=== PATIENT | female | born 1990 | race Caucasian/White ===

== ENCOUNTER 2016-11-28 15:29 | Outpatient (CLI) | payer OTHER ==
[2016-11-28 20:14] LABS: Anion Gap 16 mmol/L (10-20); BUN (Urea Nitrogen) 19 mg/dL (7.0-18.7); Calc. Creatinine Clearance 0 mL/min (70-130); Calcium 9.6 mg/dL (7.8-10.44); Carbon Dioxide 22 mmol/L (22-29); Chloride 104 mmol/L (98-107); Estimated GFR-MDRD 43
[2016-11-28 21:32] LABS: #Eosinphils 0.1 thou/uL (0.0-0.7); #Monocytes 0.3 thou/uL (0.11-0.59); #Neutrophils 2.4 thou/uL (1.40-6.50); %Basophils 0.6 % (0.0-1.0); %Eosinophils 1.8 % (0.0-10.0); %Monocytes 8.3 % (0.0-10.0); Hematocrit 34.7 % (36.0-47.0); Mean Platelet Volume 10.9 fL (7.4-10.4); Microcytosis SLIGHT = 6-15 cells (100X) (0-5/hpf); Polychromasia SLIGHT = 2-3 cells (100X) (0-2/hpf); Red Blood Cell (RBC) Count 4.03 mill/uL (4.20-5.40); White Blood Cell (WBC) Count 3.8 thou/uL (4.8-10.8)
== END 2016-11-28 15:30 | disposition home or self-care (01) ==
LOC: BURLAB 15:29 → HPCALD 15:30
PROVIDERS: ATTEND Family Medicine
DX: N17.9 Acute kidney failure, unspecified (principal); D61.818 Other pancytopenia
CPT/HCPCS: 80048; 85025

== ENCOUNTER 2016-12-02 18:08 | Emergency (ER) | payer OTHER ==
--- NOTE | 2016-12-02 19:20 | PICIS ---
[facility] EMERGENCY RECORD TRIAGE (18:16 LGIB) TRIAGE NOTES: rash since Thursday. saw PCP and given permethrin cream that she used. (18:16 LGIB) PATIENT: NAME: Kaycee Giraldo, AGE: 26, GENDER: female, : Sat 1990, TIME OF GREET: ThuDec 02, 2016 18:09, PREFERRED LANGUAGE: Kittitian, ETHNICITY: Not or , ECODE BILLING MAP: [facility], SSN: [id number], Zip Code: [address], KG WEIGHT: 108.86, , , PERSON ID: [id number], PAYMENT: X Medicaid, PCP: DO GLASGOW KRISTEL. (18:16 LGIB) PHONE: . (18:17) COMPLAINT: rash. (18:16 LGIB) ADMISSION: URGENCY: 4 Non Urgent, ADMISSION SOURCE: Home, TRANSPORT: CAR, BED: TRIAGE. (18:16 LGIB) SIRS SCORING: Heart Rate 110-139 (2), Temp range 96.8-101.1 (0), respiratory rate 12-24 (0), Mental Status altered: no (0), Total SIRS Score 2. (18:19 LGIB) LMP: LMP: Unknown. (18:19 LGIB) PROVIDERS: TRIAGE NURSE: Bethany Henry RN. (18:16 LGIB) PREVIOUS VISIT ALLERGIES: No Known Drug Allergies. (18:16 LGIB) No Known Drug Allergies. (18:18 LGIB) KNOWN ALLERGIES No Known Drug Allergies CURRENT MEDICATIONS (18:17 LGIB) Levemir Flexpen: INSULIN PEN (ML) : Strength - 100 unit/mL (3 mL) : SUBCUTANEOUS Patient Dose: 45 units Subcutaneous 2 times a day. Singulair: TABLET : Strength - 10 mg : ORAL Patient Dose: 10 mg Oral once a day (at bedtime). Ventolin: AEROSOL (GRAM) : Strength - 90 mcg : INHALATION Patient Dose: 1 puff(s) INHALATION every 4 hours prn. VITAL SIGNS (18:18 LGIB) VITAL SIGNS: BP: 136/91, Pulse: 111, Resp: 18 (Non-Labored), Temp: 97.8 (Oral), O2 sat: 98 on Room Air, Time: 12/02/2016 18:18. NURSING ASSESSMENT: SKIN (18:25 LGIB) CONSTITUTIONAL: Complex assessment performed, Patient arrives ambulatory, Gait steady, History obtained from patient, Patient appears comfortable, Patient cooperative, Patient alert, Oriented to person, place and time, Skin warm, Skin dry, Skin normal in color, Mucous membranes pink, Mucous membranes moist, Patient is well-groomed, Patient complains of RASH. PAIN: ITCHING, Patient rates pain as 0 out of 10. SKIN: Inspection findings include rash, red, flat, itchy, to GENERALIZED OVER BODY. &a-1R&a+25V*p+0X*r5798D*c202B*c15G*c2P*p-0X&a-25V&a+1R Name: Kaycee Giraldo : 1990 F26 MedRec: [id number] AcctNum: [id number] Prepared: Catrachito Dec 02, 2016 19:55 by Interface Page 1 of 5 pMD [facility] EMERGENCY RECORD NURSING PROCEDURE: DISCHARGE NOTE (18:58 LGIB) DISCHARGE: Patient discharged to home, ambulating without assistance, family driving, accompanied by parent, Summary of Care printed/ provided, Patient requested and was provided an electronic copy of Discharge Instructions, Discharge instructions given to patient, Discharge instructions given to mother, Simple or moderate discharge teaching performed, Prescriptions given and instructions on side effects given, Above person(s) verbalized understanding of discharge instructions and follow-up care, Patient treated and evaluated by physician. BELONGINGS: Belongings and valuables with patient at time of discharge include:, Belongings remain with patient, Valuables remain with patient. HPI RASH (18:31 DHAM) CHIEF COMPLAINT: Patient presents for evaluation of pruritis, Patient presents for evaluation of rash. HISTORIAN: History provided by patient, pt was in the hospital for "about a week" due to a dental abscess with facial cellulitis. She was sent home on antibiotics and took the last dose last week. She started with a generalized pruritic rash 5 days ago. she was seen by her pcp and given some cream for scabies per her sister. Pt is not very helpful with the history. no fevers, no nausea/vomiting/. LOCATION: Symptoms are generalized. QUALITY: Rash described as itchy, Rash described as papular, Rash described as raised, Rash described as red. TIME COURSE: Gradual onset of symptoms, 5, days priror to arrival, Symptoms are worsening. ASSOCIATED WITH: No associated chills, No associated extremity swelling, No associated fever, No associated oral lesions, No associated pain, No associated shortness of breath, Associated with scaling, No associated upper respiratory infection, antibiotic use last week. EXACERBATED BY: Patient's condition exacerbated by nothing. RELIEVED BY: Patient's condition relieved by benadryl. ROS (18:36 DHAM) CONSTITUTIONAL: Historian denies chills, denies fever, denies night sweats. EYES: Historian denies eye pain, denies eye redness, denies eye discharge. ENT: Historian denies rhinorrhea, denies sore throat. CARDIOVASCULAR: Historian denies chest pain. RESPIRATORY: Historian denies cough, denies shortness of breath, denies sputum. GI: Historian denies abdominal pain, denies diarrhea, denies nausea, denies vomiting. MUSCULOSKELETAL: Historian denies arthralgias, denies back pain, denies injury, denies joint redness, denies joint stiffness, denies &a-1R&a+25V*p+0X*y6468R*c202B*c15G*c2P*p-0X&a-25V&a+1R Name: Kaycee Giraldo : 1990 F26 MedRec: [id number] AcctNum: [id number] Prepared: Catrachito Dec 02, 2016 19:55 by Interface Page 2 of 5 pMD [facility] EMERGENCY RECORD joint swelling. SKIN: Historian reports rash. NEUROLOGIC: Historian denies headache. ENDOCRINE: Historian reports polyuria, blood sugar usually "over 400". ALLERGIC/IMMUNOLOGIC: recent oral infection. PSYCHIATRIC: special needs. PAST MEDICAL HISTORY (18:18 LGIB) MEDICAL HISTORY: Past medical history includes gastrointestinal disease, gastroesophageal reflux disease, Past medical history includes history of diabetes, Type II, Past medical history includes history of obesity, Past medical history includes pulmonary disease, asthma. FEMALE SURGICAL HISTORY: Patient has no surgical history. PSYCHIATRIC HISTORY: MILD MR. SOCIAL HISTORY: Social History includes lives with mom, Patient denies alcohol use, Patient denies drug use, Patient has no smoking history. FAMILY HISTORY: Family history is not significant. PHYSICAL EXAM (18:37 DHAM) CONSTITUTIONAL: Vital signs reviewed, Patient afebrile, Pulse, tachycardic, Blood pressure, hypertensive, Respiratory rate normal, Patient appears non toxic, Patient appears pain free, Patient alert and oriented to person, place and time. HEAD: Head exam included findings of head atraumatic, normocephalic. EYES: Eye exam included findings of eyelids normal to inspection, Pupils equally round and reactive to light, Extraocular muscles intact, Conjunctiva normal, Sclera normal, Eye exam included findings of anterior chamber clear. ENT: Ear exam normal, Nose exam normal, Pharynx exam normal, Uvula exam normal, Tonsil exam normal, Mouth exam normal, recent tooth removal. NECK: Neck exam included findings of normal range of motion, Trachea midline, no meningeal signs, no cervical adenopathy. RESPIRATORY CHEST: Respiratory exam included findings of no respiratory distress, Breath sounds clear, No wheezing, No rales, No rhonchi. CARDIOVASCULAR: Cardiovascular exam included findings of heart rate regular rate and rhythm, Heart sounds normal. ABDOMEN FEMALE: Abdominal exam included findings of abdomen nontender, Bowel sounds normal. UPPER EXTREMITY: Upper extremity exam included findings of inspection normal, Range of motion normal, Motor strength normal, Sensation intact, Brachial pulse normal, see skin below. LOWER EXTREMITY: Lower extremity exam included findings of &a-1R&a+25V*p+0X*y4676R*c202B*c15G*c2P*p-0X&a-25V&a+1R Name: Kaycee Giraldo : 1990 F26 MedRec: [id number] AcctNum: [id number] Prepared: Catrachito Dec 02, 2016 19:55 by Interface Page 3 of 5 pMD [facility] EMERGENCY RECORD inspection normal, Range of motion normal, Motor strength normal, Sensation intact, no edema, no calf tenderness, see skin. NEURO: Dharmesh coma scale 15, Neuro exam findings include patient oriented to person, place and time, Speech, raspy speech which her baseline from prior visit, Gait normal, Memory normal, Cranial nerves intact, no focal motor deficits, no focal sensory deficits. SKIN: Skin exam included findings of skin warm, dry, Rash present, confluent patches of papular erythematous/pink rash with some scaling. raised patches from .5x.5cm up to [id number] on the left medial thigh. LYMPHATIC: Lymphatic exam normal. PSYCHIATRIC: Psychiatric exam included findings of patient oriented to person place and time, Affect, flat, Judgment poor, Insight poor, Remote memory poor, Recent memory poor, Concentration poor. EVENTS TRANSFER: Triage to Emergency Triage. (ThuDec 02, 2016 18:16 LGIB) Emergency Triage to Emergency Room -03. (18:17 LGIB) Removed from Emergency Emergency Room -03. (19:01 LGIB) O2SAT INTERPRETATION (18:30 DHAM) O2SAT: Single pulse oximetry, Oxygen saturation 98%, on room air, Oxygen saturation interpretation: Normal, No intervention required. DOCTOR NOTES (18:43 DHAM) TEXT: I think this is a cutaneous drug reaction. I would usually give steroids in this situation but with her glucose always over 400, by her report, I think expectant mgmt with antihistamines is indicated. she has no idea what antibiotics that she was on. Pharmacy is closed. Mother and sister will call the pharmacy tomorrow to find out and call us so we can place in the system. see dci. PROBLEM LIST No recorded problems DIAGNOSIS (18:46 DHAM) FINAL: PRIMARY: cutaneous drug reaction. DISPOSITION PATIENT: Disposition Type: Discharge, Disposition: *Discharge Home. (18:46 DHAM) Patient left the department. (19:01 LGIB) INSTRUCTION (18:48 DHAM) DISCHARGE: DRUG REACTION ALLERGIC. FOLLOWUP: DO GLASGOW KRISTEL, Family Practice, [address], &a-1R&a+25V*p+0X*a8204O*c202B*c15G*c2P*p-0X&a-25V&a+1R Name: Kaycee Giraldo : 1990 F26 MedRec: [id number] AcctNum: [id number] Prepared: ThuDec 02, 2016 19:55 by Interface Page 4 of 5 pMD [facility] EMERGENCY RECORD [facility] [id number], [id number]. SPECIAL: Mother and sister will call the pharmacy tomorrow to find out what antibiotic she was on and call us so we can place in the system. ZYRTEC 10 MG ONE TABLET ONCE EVERY 24 HOURS FOR RASH AND ITCHING. RETURN FOR FEVER, SHORTNESS OF BREATH OR ANY OTHER CONCERNS. PRESCRIPTION No recorded prescriptions IMAGING (19:00 LGIB) *DISCHARGE INSTRUCTIONS RECEIPT: Image captured from scanner. *SUPPLY CHARGE SHEET: Image captured from scanner. ADMIN (19:51 [facility]) DIGITAL SIGNATURE: MD Sung Darren. Osborne: [facility]=MD Sung Darren LGIB=COREY Henry, Bethany &a-1R&a+25V*p+0X*d7863R*c202B*c15G*c2P*p-0X&a-25V&a+1R Name: Kaycee Giraldo : 1990 F26 MedRec: [id number] AcctNum: [id number] Prepared: Catrachito Dec 02, 2016 19:55 by Interface Page 5 of 5 pMD MTDD
--- NOTE | 2016-12-02 19:25 | ERRECORD ---
[facility] EMERGENCY RECORD HPI RASH (18:31 DHAM) CHIEF COMPLAINT: Patient presents for evaluation of pruritis, Patient presents for evaluation of rash. HISTORIAN: History provided by patient, pt was in the hospital for "about a week" due to a dental abscess with facial cellulitis. She was sent home on antibiotics and took the last dose last week. She started with a generalized pruritic rash 5 days ago. she was seen by her pcp and given some cream for scabies per her sister. Pt is not very helpful with the history. no fevers, no nausea/vomiting/. LOCATION: Symptoms are generalized. QUALITY: Rash described as itchy, Rash described as papular, Rash described as raised, Rash described as red. TIME COURSE: Gradual onset of symptoms, 5, days priror to arrival, Symptoms are worsening. ASSOCIATED WITH: No associated chills, No associated extremity swelling, No associated fever, No associated oral lesions, No associated pain, No associated shortness of breath, Associated with scaling, No associated upper respiratory infection, antibiotic use last week. EXACERBATED BY: Patient's condition exacerbated by nothing. RELIEVED BY: Patient's condition relieved by benadryl. ROS (18:36 DHAM) CONSTITUTIONAL: Historian denies chills, denies fever, denies night sweats. EYES: Historian denies eye pain, denies eye redness, denies eye discharge. ENT: Historian denies rhinorrhea, denies sore throat. CARDIOVASCULAR: Historian denies chest pain. RESPIRATORY: Historian denies cough, denies shortness of breath, denies sputum. GI: Historian denies abdominal pain, denies diarrhea, denies nausea, denies vomiting. MUSCULOSKELETAL: Historian denies arthralgias, denies back pain, denies injury, denies joint redness, denies joint stiffness, denies joint swelling. SKIN: Historian reports rash. NEUROLOGIC: Historian denies headache. ENDOCRINE: Historian reports polyuria, blood sugar usually "over 400". ALLERGIC/IMMUNOLOGIC: recent oral infection. PSYCHIATRIC: special needs. PAST MEDICAL HISTORY (18:18 LGIB) MEDICAL HISTORY: Past medical history includes gastrointestinal disease, gastroesophageal reflux disease, Past medical history includes history of diabetes, Type II, Past medical history includes history of obesity, Past medical history includes pulmonary disease, asthma. FEMALE SURGICAL HISTORY: Patient has no surgical &a-1R&a+25V*p+0X*a1409S*c202B*c15G*c2P*p-0X&a-25V&a+1R Name: Kaycee Giraldo : 1990 F26 MedRec: [id number] AcctNum: [id number] Prepared: Catrachito Dec 02, 2016 19:55 by Interface Page 1 of 3 pMD [facility] EMERGENCY RECORD history. PSYCHIATRIC HISTORY: MILD MR. SOCIAL HISTORY: Social History includes lives with mom, Patient denies alcohol use, Patient denies drug use, Patient has no smoking history. FAMILY HISTORY: Family history is not significant. KNOWN ALLERGIES No Known Drug Allergies CURRENT MEDICATIONS (18:17 LGIB) Levemir Flexpen: INSULIN PEN (ML) : Strength - 100 unit/mL (3 mL) : SUBCUTANEOUS Patient Dose: 45 units Subcutaneous 2 times a day. Singulair: TABLET : Strength - 10 mg : ORAL Patient Dose: 10 mg Oral once a day (at bedtime). Ventolin: AEROSOL (GRAM) : Strength - 90 mcg : INHALATION Patient Dose: 1 puff(s) INHALATION every 4 hours prn. VITAL SIGNS (18:18 LGIB) VITAL SIGNS: BP: 136/91, Pulse: 111, Resp: 18 (Non-Labored), Temp: 97.8 (Oral), O2 sat: 98 on Room Air, Time: 12/02/2016 18:18. PHYSICAL EXAM (18:37 DHAM) CONSTITUTIONAL: Vital signs reviewed, Patient afebrile, Pulse, tachycardic, Blood pressure, hypertensive, Respiratory rate normal, Patient appears non toxic, Patient appears pain free, Patient alert and oriented to person, place and time. HEAD: Head exam included findings of head atraumatic, normocephalic. EYES: Eye exam included findings of eyelids normal to inspection, Pupils equally round and reactive to light, Extraocular muscles intact, Conjunctiva normal, Sclera normal, Eye exam included findings of anterior chamber clear. ENT: Ear exam normal, Nose exam normal, Pharynx exam normal, Uvula exam normal, Tonsil exam normal, Mouth exam normal, recent tooth removal. NECK: Neck exam included findings of normal range of motion, Trachea midline, no meningeal signs, no cervical adenopathy. RESPIRATORY CHEST: Respiratory exam included findings of no respiratory distress, Breath sounds clear, No wheezing, No rales, No rhonchi. CARDIOVASCULAR: Cardiovascular exam included findings of heart rate regular rate and rhythm, Heart sounds normal. ABDOMEN FEMALE: Abdominal exam included findings of abdomen nontender, Bowel sounds normal. UPPER EXTREMITY: Upper extremity exam included findings of &a-1R&a+25V*p+0X*w1004V*c202B*c15G*c2P*p-0X&a-25V&a+1R Name: Kaycee Giraldo : 1990 F26 MedRec: [id number] AcctNum: [id number] Prepared: Catrachito Dec 02, 2016 19:55 by Interface Page 2 of 3 pMD [facility] EMERGENCY RECORD inspection normal, Range of motion normal, Motor strength normal, Sensation intact, Brachial pulse normal, see skin below. LOWER EXTREMITY: Lower extremity exam included findings of inspection normal, Range of motion normal, Motor strength normal, Sensation intact, no edema, no calf tenderness, see skin. NEURO: Wynot coma scale 15, Neuro exam findings include patient oriented to person, place and time, Speech, raspy speech which her baseline from prior visit, Gait normal, Memory normal, Cranial nerves intact, no focal motor deficits, no focal sensory deficits. SKIN: Skin exam included findings of skin warm, dry, Rash present, confluent patches of papular erythematous/pink rash with some scaling. raised patches from .5x.5cm up to [id number] on the left medial thigh. LYMPHATIC: Lymphatic exam normal. PSYCHIATRIC: Psychiatric exam included findings of patient oriented to person place and time, Affect, flat, Judgment poor, Insight poor, Remote memory poor, Recent memory poor, Concentration poor. DOCTOR NOTES (18:43 DHAM) TEXT: I think this is a cutaneous drug reaction. I would usually give steroids in this situation but with her glucose always over 400, by her report, I think expectant mgmt with antihistamines is indicated. she has no idea what antibiotics that she was on. Pharmacy is closed. Mother and sister will call the pharmacy tomorrow to find out and call us so we can place in the system. see dci. PROBLEM LIST No recorded problems DIAGNOSIS (18:46 DHAM) FINAL: PRIMARY: cutaneous drug reaction. PRESCRIPTION No recorded prescriptions DISPOSITION PATIENT: Disposition Type: Discharge, Disposition: *Discharge Home. (18:46 JOAQUIN) Patient left the department. (19:01 JESSICA) Osborne: JOAQUIN=MD Ana Lilia, Alexis LGIB=COREY Henry, Bethany &a-1R&a+25V*p+0X*z6391T*c202B*c15G*c2P*p-0X&a-25V&a+1R Name: Kaycee Giraldo : 1990 F26 MedRec: [id number] AcctNum: [id number] Prepared: Catrachito Dec 02, 2016 19:55 by Interface Page 3 of 3 pMD MTDD
== END 2016-12-02 19:00 | disposition home or self-care (01) ==
LOC: BURERS 18:08
DX: R21 Rash and other nonspecific skin eruption (principal); T49.95XA Adverse effect of unspecified topical agent, initial encounter; E11.9 Type 2 diabetes mellitus without complications; K21.9 Gastro-esophageal reflux disease without esophagitis; E66.9 Obesity, unspecified; J45.909 Unspecified asthma, uncomplicated
CPT/HCPCS: 99282

== ENCOUNTER 2017-01-05 20:41 | Emergency (ER) | payer OTHER ==
[2017-01-05] MEDS ORDERED: Insulin Regular 300 UNITS/3 ML VIAL ONE (21:08)
[2017-01-05 21:10] LABS: Bilirubin Negative (Negative); Blood, Urine Large (Negative); Glucose, Urine (Dipstick) 500 mg/dL (Negative); Ketone, Urine Negative (Negative); Nitrite Negative (Negative); Protein, Urine (Dipstick) 30 mg/dL (Neg-Trace); Urobilinogen 0.2 mg/dL (0.2-1.0)
[2017-01-05 21:16] LABS: RBC/HPF 0-3 HPF (0-3)
[2017-01-05 21:17] LABS: Bacteria/HPF Rare-Few HPF (None Seen); Hyaline Casts/LPF NONE SEEN LPF (0-3 Hyaline); Oval Fat Bodies/HPF None Seen HPF (None Seen); Renal Epithelial None Seen HPF (0-3); Sperm/HPF None Seen HPF (None Seen); Squamous Epithelial 0-3 HPF (0-3); Transitional Epithelial NONE SEEN HPF (0-3); Trichomonas/HPF None Seen HPF (None Seen); Yeast-All Forms None Seen HPF (None Seen)
[2017-01-05 21:44] LABS: ALT (SGPT) 30 U/L (0-55); AST (SGOT) 25 U/L (5-34); Alkaline Phosphatase 95 U/L (40-150); Anion Gap 16 mmol/L (10-20); BUN (Urea Nitrogen) 19 mg/dL (7.0-18.7); Bilirubin, Total 0.4 mg/dL (0.2-1.2); Calc. Creatinine Clearance 0 mL/min (70-130); Calcium 8.8 mg/dL (7.8-10.44); Carbon Dioxide 20 mmol/L (22-29); Chloride 104 mmol/L (98-107); Estimated GFR-MDRD 37; Globulin 2.5 g/dL (2.4-3.5)
[2017-01-05 22:07] LABS: Red Blood Cell (RBC) Count 3.63 mill/uL (4.20-5.40); White Blood Cell (WBC) Count 4.5 thou/uL (4.8-10.8)
[2017-01-05 22:08] LABS: #Eosinphils 0.1 thou/uL (0.0-0.7); #Monocytes 0.3 thou/uL (0.11-0.59); %Basophils 1.6 % (0.0-1.0); %Eosinophils 3.1 % (0.0-10.0); %Monocytes 6.7 % (0.0-10.0); Mean Platelet Volume 9.3 fL (7.4-10.4)
[2017-01-05 22:09] LABS: #Basophils 0.1 thou/uL (0.0-0.2); Anisocytosis SLIGHT = 6-15 cells (100X) (0-5/hpf)
[2017-01-05] MEDS ORDERED: HYDROcodone/Acetaminophen 5/325 mg Tablet ONE (22:35)
[2017-01-05] MEDS ORDERED: Amoxicillin/Potassium Clav 875 MG TAB ONE (23:29)
--- NOTE | 2017-01-06 06:58 | RAD ---
PORTABLE CHEST 01/05/2017 An AP portable film at 2114 hours is compared with a 11/15/2016 study. The heart is normal in size, and the lungs are clear. No infiltrate or effusion was seen. There wa s no sign of pneumonia. The trachea is midline. The right hilum is more prominent than the left, b ut I believe it is due to the patient being turned slightly. IMPRESSION: No definite acute findings. POS: HOME
--- NOTE | 2017-01-06 07:40 | CT ---
PRELIMINARY REPORT/[facility]/EMERGENCY AFTER HOURS PROCEDURE: EXAM: CT Neck Without Intravenous Contrast. CLINICAL HISTORY: 27 years old, female; Signs and symptoms and condition or disease; Dental caries; Other: Abscess willie th; Patient HX: Pt is complaining of dental pain and swelling on the upper teeth. No contrast due to low gfr. ; TECHNIQUE: Axial computed tomography images of the neck without intravenous contrast. Coronal and sagittal reformatted images were created and reviewed. COMPARISON: No relevant prior studies available. FINDINGS: Nasopharynx: Unremarkable. Oropharynx: Unremarkable. No significant tonsillar enlargement. Hypopharynx: Unremarkable. Larynx: Unremarkable. Normal epiglottis. Trachea: Unremarkable. Retropharyngeal space: Unremarkable. Submandibular/parotid glands: Unremarkable. Glands are normal in size. Thyroid: Unremarkable. No enlarged or calcified nodules. Bones/joints: No acute fracture. Soft tissues: Unremarkable. Vasculature: No acute findings. Lymph nodes: Enlarged 1 cm short axis right paratracheal lymph node. Mild enlarged bilateral jugular chain lymph nodes. Sinuses: Near-complete opacification of the maxillary sinuses bilaterally with fluid and mucosal thi ckening. Incompletely visualized opacification of anterior ethmoid air cells bilaterally. Findings a re compatible with sinusitis. Lung apices: Unremarkable as visualized. IMPRESSION: 1. Sinusitis. 2. Mild right paratracheal and bilateral jugular chain lymphadenopathy, nonspecific and indeterminat e. Thank you for allowing us to participate in the care of your patient. Dictated and Authenticated by: Jasson Narayan MD 01/05/2017 10:42 PM Central Time ([place] \T\ [place]) FINAL REPORT CT OF THE NECK SOFT TISSUES WITHOUT CONTRAST: DATE: 01/05/17. FINDINGS: Spiral CT of the neck was performed for evaluation of pain to the upper teeth and to rule out absces s. IV contrast was deferred because the patient's GFR was low. Axial slices were acquired, then co sera and sagittal reconstructions were done. The patient's ethmoid sinuses have considerable mucosal thickening and her maxillary sinuses are william ost completely opacified. The sphenoid sinus seems clear. Her mastoid air cells are not completely evaluated, but some may be opaque. Certainly, many are under aerated. Thus, sinusitis is present and is a potential cause for her dental pain. Regarding the soft tissues of the neck, there is no evidence of focal abscess. There are some small mildly enlarged lymph nodes in the deep cervical/jugular chains bilaterally, with those on the righ t being a bit larger than the left. The largest node on the right measured 2 cm in length. Some s mall nodes are seen in the right paratracheal region on the slices through the top of the mediastinu m. The lung apices were clear. There are quite a few calcifications in the patient's parotid gland on the right side that could be tiny calculi. I do not see any on the left. There is lucency around one of the left mandibular molars suggesting a small periapical abscess as a possibility. There is no swelling in the surrounding soft tissues. IMPRESSION: 1. Significant maxillary and ethmoid sinusitis that may be the etiology of dental pain in the upper teeth. 2. Cervical and right paratracheal adenopathy. The cervical adenopathy is most prominent on the ri ght side, though it is present bilaterally. 3. Numerous calcifications in the right parotid gland. 4. Lucency around one of the left mandibular molars that could be a small periapical abscess. Report in substantial agreement with preliminary reading by [facility]. POS: HOME
== END 2017-01-05 23:41 | disposition home or self-care (01) ==
LOC: BURERS 20:41
DX: E10.65 Type 1 diabetes mellitus with hyperglycemia (principal); J01.90 Acute sinusitis, unspecified; K21.9 Gastro-esophageal reflux disease without esophagitis; J45.909 Unspecified asthma, uncomplicated; Z79.4 Long term (current) use of insulin; Z79.899 Other long term (current) drug therapy
CPT/HCPCS: 36416; 70490; 71010; 80053; 81003; 81015; 85025; 96360; 96361; 96372; J1815

== ENCOUNTER 2017-04-18 14:02 | Emergency (ER) | payer OTHER ==
[2017-04-18] MEDS ORDERED: Sodium Chloride 0.9% 100 ML ONE (14:31)
[2017-04-18] MEDS ORDERED: cefTRIAXone\\ROCEPHIN 1 GM VIAL ONE (14:31)
[2017-04-18] MEDS ORDERED: Ibuprofen 200 MG TAB ONE (14:38)
[2017-04-18] MEDS ORDERED: Insulin Regular 300 UNITS/3 ML VIAL ONE (15:11)
[2017-04-18 15:17] LABS: Base Excess 1.4 mEq/L (-2 - +2)
[2017-04-18 15:18] LABS: Hemoglobin (Hb) 11.1 g/dL (11.7-15.5)
[2017-04-18 15:22] LABS: #Eosinphils 0.1 thou/uL (0.0-0.7); #Lymphocytes 0.9 thou/uL (1.20-3.40); #Monocytes 0.4 thou/uL (0.11-0.59); #Neutrophils 2.1 thou/uL (1.40-6.50); %Basophils 0.8 % (0.0-1.0); %Eosinophils 3.7 % (0.0-10.0); %Lymphocytes 25.6 % (21.0-51.0); %Monocytes 10.2 % (0.0-10.0); %Neutrophils 59.8 % (42.0-75.0); Hemoglobin 11.4 g/dL (12.0-16.0); Mean Corpuscular HGB CONC 31.5 g/dL (32.0-36.0); Mean Corpuscular Hemoglobin 26.8 pg (27.0-31.0); Mean Corpuscular Volume 85.1 fl (81.0-99.0); Mean Platelet Volume 9.3 fL (7.4-10.4); Platelet Count 56 thou/uL (130-400); Red Blood Cell (RBC) Count 4.24 mill/uL (4.20-5.40); White Blood Cell (WBC) Count 3.5 thou/uL (4.8-10.8)
[2017-04-18 15:23] LABS: ALT (SGPT) 51 U/L (8-55); AST (SGOT) 33 U/L (5-34); Albumin 3.6 g/dL (3.5-5.0); Alkaline Phosphatase 111 U/L (40-150); Anion Gap 16 mmol/L (10-20); BUN (Urea Nitrogen) 22 mg/dL (7.0-18.7); Bilirubin, Total 0.6 mg/dL (0.2-1.2); Calc. Creatinine Clearance 0 mL/min (70-130); Calcium 8.9 mg/dL (7.8-10.44); Carbon Dioxide 21 mmol/L (22-29); Chloride 100 mmol/L (98-107); Estimated GFR-MDRD 37; Globulin 2.3 g/dL (2.4-3.5); MDiff Complete? YES; Manual Diff?? NO; Potassium 4.8 mmol/L (3.5-5.1); Protein, Total 5.9 g/dL (6.0-8.3); Sodium 132 mmol/L (136-145)
[2017-04-18 15:29] LABS: Glucose 622 mg/dL (70-105)
== END 2017-04-18 16:13 | disposition home or self-care (01) ==
LOC: BURERS 14:02
DX: L02.411 Cutaneous abscess of right axilla (principal); E10.65 Type 1 diabetes mellitus with hyperglycemia; J45.909 Unspecified asthma, uncomplicated; K21.9 Gastro-esophageal reflux disease without esophagitis; E66.9 Obesity, unspecified; Z79.899 Other long term (current) drug therapy
CPT/HCPCS: 10060; 36415; 36416; 80053; 82805; 85025; 96361; 96374; J0696; J1815; J7050

== ENCOUNTER 2017-04-20 12:57 | Emergency (ER) | payer OTHER ==
[2017-04-20] MEDS ORDERED: Ondansetron HCl/PF 4 MG/2 ML Vial ONE (13:17)
--- NOTE | 2017-04-20 15:00 | RAD ---
PORTABLE CHEST: Date: 04-20-17 Provided Clinical History: Cough. FINDINGS: Comparison 01-05-17. Cardiac and mediastinal silhouette is upper normal limits. No focal consolidatio n, pleural fluid, or pneumothorax apparent. IMPRESSION: No evidence for an acute cardiopulmonary process. POS: [facility]
== END 2017-04-20 13:51 | disposition home or self-care (01) ==
LOC: BURERS 12:57
DX: K52.9 Noninfective gastroenteritis and colitis, unspecified (principal); K21.9 Gastro-esophageal reflux disease without esophagitis; E11.9 Type 2 diabetes mellitus without complications; E66.9 Obesity, unspecified; Z79.899 Other long term (current) drug therapy
CPT/HCPCS: 71010; 96374; J2405

== ENCOUNTER 2017-06-13 13:44 | Emergency (ER) | payer OTHER ==
[2017-06-13] MEDS ORDERED: Acetaminophen 500 MG TAB ONE (14:18)
== END 2017-06-13 14:15 | disposition home or self-care (01) ==
LOC: BURERS 13:44
DX: N76.0 Acute vaginitis (principal); B37.3 Candidiasis of vulva and vagina; J45.909 Unspecified asthma, uncomplicated
CPT/HCPCS: 99282

== ENCOUNTER 2017-08-19 16:22 | Emergency (ER) | payer OTHER ==
[2017-08-19] MEDS ORDERED: traMADol HCl 50 MG TAB ONE (16:43)
[2017-08-19] MEDS ORDERED: AMOXicillin 250 MG CAP ONE (16:43)
== END 2017-08-19 16:58 | disposition home or self-care (01) ==
LOC: BURERS 16:22
DX: J02.9 Acute pharyngitis, unspecified (principal); M79.1 Myalgia; J45.909 Unspecified asthma, uncomplicated
CPT/HCPCS: 99283

== ENCOUNTER 2017-09-15 16:02 | Emergency (ER) | payer OTHER ==
[2017-09-15 16:30] LABS: Bilirubin Negative (Negative); Blood, Urine Negative (Negative); Clarity Slightly Cloudy (Clear); Glucose, Urine (Dipstick) 500 mg/dL (Negative); Leukocyte Negative (Negative); Nitrite Negative (Negative); Protein, Urine (Dipstick) 100 mg/dL (Neg-Trace); Urobilinogen 0.2 mg/dL (0.2-1.0); pH, Urine 5.5 (5.0-9.0)
[2017-09-15 16:36] LABS: Bacteria/HPF 1+ HPF (None Seen); Crystals/HPF None Seen HPF (Negative); Hyaline Casts/LPF NONE SEEN LPF (0-3 Hyaline); Other Casts/LPF None Seen LPF (0-3 Hyaline); Oval Fat Bodies/HPF None Seen HPF (None Seen); RBC/HPF None Seen HPF (0-3); Renal Epithelial None Seen HPF (0-3); Sperm/HPF None Seen HPF (None Seen); Transitional Epithelial NONE SEEN HPF (0-3); Trichomonas/HPF None Seen HPF (None Seen); Yeast-All Forms None Seen HPF (None Seen)
[2017-09-15] MEDS ORDERED: Benzonatate 100 MG CAP ONE (16:42)
[2017-09-15] MEDS ORDERED: Ciprofloxacin 500 MG TAB ONE (16:42)
== END 2017-09-15 16:47 | disposition home or self-care (01) ==
LOC: BURERS 16:02
DX: N30.00 Acute cystitis without hematuria (principal); B37.3 Candidiasis of vulva and vagina; J06.9 Acute upper respiratory infection, unspecified; E11.9 Type 2 diabetes mellitus without complications; J45.909 Unspecified asthma, uncomplicated; Z79.4 Long term (current) use of insulin
CPT/HCPCS: 81003; 81015; 87086; 99283

== ENCOUNTER 2017-09-30 13:10 | Emergency (ER) | payer OTHER | END 2017-09-30 13:36 | disposition home or self-care (01) | LOC: BURERS 13:10 | DX: K08.89 Other specified disorders of teeth and supporting structures (principal); E11.9 Type 2 diabetes mellitus without complications; J45.909 Unspecified asthma, uncomplicated; Z79.4 Long term (current) use of insulin; Z79.899 Other long term (current) drug therapy | CPT/HCPCS: 99282 ==

== ENCOUNTER 2017-12-26 19:47 | Emergency (ER) | payer OTHER ==
[2017-12-26 20:16] LABS: Bilirubin Negative (Negative); Blood, Urine Trace (Negative); Clarity Slightly Cloudy (Clear); Glucose, Urine (Dipstick) 500 mg/dL (Negative); Leukocyte Negative (Negative); Nitrite Negative (Negative); Protein, Urine (Dipstick) Negative (Neg-Trace); Urobilinogen 0.2 mg/dL (0.2-1.0); pH, Urine 5.5 (5.0-9.0)
[2017-12-26 20:17] LABS: Specific Gravity, Urine 1.024 (1.002-1.036)
[2017-12-26 20:24] LABS: Bacteria/HPF Rare-Few HPF (None Seen); Crystals/HPF None Seen HPF (Negative); Hyaline Casts/LPF NONE SEEN LPF (0-3 Hyaline); Other Casts/LPF None Seen LPF (0-3 Hyaline); Oval Fat Bodies/HPF None Seen HPF (None Seen); RBC/HPF 0-3 HPF (0-3); Renal Epithelial None Seen HPF (0-3); Sperm/HPF None Seen HPF (None Seen); Squamous Epithelial 0-3 HPF (0-3); Transitional Epithelial NONE SEEN HPF (0-3); Trichomonas/HPF None Seen HPF (None Seen); WBC/HPF 0-3 HPF (0-3); Yeast-All Forms None Seen HPF (None Seen)
[2017-12-26] MEDS ORDERED: Ibuprofen 800 MG TAB ONE (20:29)
[2017-12-26] MEDS ORDERED: Benzonatate 100 MG CAP ONE (20:29)
[2017-12-26] MEDS ORDERED: Azithromycin 250 MG TAB ONE (20:29)
[2017-12-26] MEDS ORDERED: Cephalexin 500 MG CAP ONE (20:29)
--- NOTE | 2017-12-27 11:06 | RAD ---
CHEST 2 VIEWS: DATE: 12/26/17. COMPARISON: Comparison is made with a 01/05/17 study. FINDINGS: There is a patchy infiltrate in the superior portion of the left lower lobe overlying the left hilum. The findings are consistent with pneumonia. This should be followed to complete resolution. The r ight lung is clear. There are no effusions. Heart is normal in size. The trachea is midline. IMPRESSION: Left perihilar infiltrate consistent with pneumonia. Appears to be located in the superior portion o f the left lower lobe. POS: HOME
== END 2017-12-26 20:34 | disposition home or self-care (01) ==
LOC: BURERS 19:47
DX: J18.1 Lobar pneumonia, unspecified organism (principal); E11.9 Type 2 diabetes mellitus without complications; J45.909 Unspecified asthma, uncomplicated; Z79.4 Long term (current) use of insulin; Z79.899 Other long term (current) drug therapy
CPT/HCPCS: 71046; 81003; 81015

== ENCOUNTER 2017-12-30 12:26 | Outpatient (CLI) | payer OTHER ==
--- NOTE | 2017-12-30 20:14 | RAD ---
CHEST TWO VIEWS: 12/30/17 Comparison is made with the 12/26 study. The left perihilar infiltrate has improved slightly over the i nterval. A portion of it is somewhat long and tubular. This can sometimes be seen with mucus plugging in bronchi and/or atelectasis beyond it. The right lung remains clear. There are no large effusions. The heart size is normal. IMPRESSION: Slight improvement in the left perihilar infiltrate. A followup to complete resolution is needed. Code T POS: HOME
== END 2017-12-30 12:27 | disposition home or self-care (01) ==
LOC: BURRAD 12:26
PROVIDERS: ATTEND Family Medicine
DX: J18.9 Pneumonia, unspecified organism (principal); R91.8 Other nonspecific abnormal finding of lung field
CPT/HCPCS: 71046

== ENCOUNTER 2018-07-21 13:25 | Emergency (ER) | payer MEDICAID | END 2018-07-21 14:10 | disposition home or self-care (01) | LOC: BURERS 13:25 | DX: L02.31 Cutaneous abscess of buttock (principal); E11.9 Type 2 diabetes mellitus without complications; J45.909 Unspecified asthma, uncomplicated; Z79.4 Long term (current) use of insulin; Z79.899 Other long term (current) drug therapy | CPT/HCPCS: 99282 ==

== ENCOUNTER 2018-09-29 13:41 | Outpatient (CLI) | payer OTHER ==
[2018-09-29 17:58] LABS: Bilirubin Negative (Negative); Blood, Urine Large (Negative); Clarity CLEAR (Clear); Glucose, Urine (Dipstick) >=1000 mg/dL (Negative); Leukocyte Trace (Negative); Nitrite Negative (Negative); Protein, Urine (Dipstick) 30 mg/dL (Neg-Trace); Specific Gravity, Urine 1.029 (1.002-1.036); Urobilinogen 0.2 mg/dL (0.2-1.0)
[2018-09-29 18:07] LABS: Creatinine, Urine 62.04 mg/dL (47-110)
--- NOTE | 2018-09-29 22:40 | ULT ---
BILATERAL RENAL ULTRASOUND: 09/29/18 Ultrasonography of the urinary tract was performed in this patient who has known chronic kidney disea se. Comparison is made with a prior renal ultrasound dated 03/16/15. The right kidney measures 9.9 x 5.4 x 4.5 cm. No mass or hydronephrosis was seen within it. The jason x was unremarkable in appearance. Left kidney measures 10.3 x 4.2 x 4.0 cm. There is some mild hydronephrosis. There appears to be 2.7 cm cyst in this kidney, though it is not shown optimally. The tech questioned whether it might be act ually a dilated calyx, but most images appear to show it as a cyst. The cortex is somewhat thinned ar ound this kidney and slightly echogenic. The urinary bladder was empty. IMPRESSION: 1. Mild left hydronephrosis, much less than prior study. 2. Presumed cyst of the left kidney. POS: HOME
== END 2018-09-29 13:42 | disposition home or self-care (01) ==
LOC: BURULT 13:41
PROVIDERS: ATTEND Internal Medicine Nephrology
DX: I12.9 Hypertensive chronic kidney disease with stage 1 through stage 4 chronic kidney disease, or unspecified chronic kidney disease (principal); N18.3 Chronic kidney disease, stage 3 (moderate); N13.30 Unspecified hydronephrosis; N28.1 Cyst of kidney, acquired
CPT/HCPCS: 76770; 81003; 82570; 84156

== ENCOUNTER 2018-10-21 09:21 | Emergency (ER) | payer OTHER ==
[2018-10-21 10:47] LABS: Clarity Cloudy (Clear); Glucose, Urine (Dipstick) 500 mg/dL (Negative); Leukocyte Small (Negative); Nitrite Negative (Negative); Protein, Urine (Dipstick) 100 mg/dL (Neg-Trace); Specific Gravity, Urine 1.025 (1.005-1.030); pH, Urine 5.5 (5.0-9.0)
[2018-10-21 10:48] LABS: Bilirubin Negative (Negative); Blood, Urine Small (Negative)
[2018-10-21 10:51] LABS: Bacteria/HPF 1+ HPF (None Seen); Crystals/HPF 1+ AMORPH URATES HPF (Negative); RBC/HPF 0-3 HPF (0-3); Transitional Epithelial 0-3 HPF (0-3); WBC/HPF 21-50 HPF (0-3)
[2018-10-21 11:26] LABS: #Lymphocytes 0.8 thou/uL (1.20-3.40); #Monocytes 0.4 thou/uL (0.11-0.59); #Neutrophils 3.9 thou/uL (1.40-6.50); %Basophils 0.6 % (0.0-1.0); %Eosinophils 0.5 % (0.0-10.0); %Monocytes 8.5 % (0.0-10.0); %Neutrophils 74.5 % (42.0-75.0); Hemoglobin 9.6 g/dL (12.0-16.0); Mean Corpuscular HGB CONC 33.2 g/dL (32.0-36.0); Mean Corpuscular Hemoglobin 25.6 pg (27.0-31.0); Mean Corpuscular Volume 77.3 fL (78.0-98.0); Mean Platelet Volume 9.4 fL (7.4-10.4); Platelet Count 65 thou/uL (130-400); RBC Distribution Width 13.5 % (11.5-14.5); Red Blood Cell (RBC) Count 3.75 mill/uL (4.20-5.40); White Blood Cell (WBC) Count 5.2 thou/uL (4.8-10.8)
[2018-10-21 11:31] LABS: ALT (SGPT) 13 U/L (8-55); AST (SGOT) 10 U/L (5-34); Albumin 3.5 g/dL (3.5-5.0); Alkaline Phosphatase 72 U/L (40-150); Anion Gap 13 mmol/L (10-20); BUN (Urea Nitrogen) 19 mg/dL (7.0-18.7); Bilirubin, Total 0.8 mg/dL (0.2-1.2); Calc. Creatinine Clearance 0 mL/min (70-130); Calcium 9.4 mg/dL (7.8-10.44); Carbon Dioxide 23 mmol/L (22-29); Chloride 103 mmol/L (98-107); Estimated GFR-MDRD 39; Glucose 292 mg/dL (70-105); Potassium 4.2 mmol/L (3.5-5.1); Protein, Total 6.5 g/dL (6.0-8.3); Sodium 135 mmol/L (136-145)
--- NOTE | 2018-10-21 17:55 | RAD ---
CHEST TWO VIEWS: 10/21/18 Comparison is made with the 12/30/17 study. There is a patchy area that I do not see on the 12/26/17 study. An early infiltrate here is probable. T he lungs are otherwise clear and the heart is normal in size. No effusions are seen. IMPRESSION: Patchy right upper lobe infiltrate. Code T POS: HOME
== END 2018-10-21 12:00 | disposition home or self-care (01) ==
LOC: BURERS 09:21
DX: J18.1 Lobar pneumonia, unspecified organism (principal); N39.0 Urinary tract infection, site not specified; E11.9 Type 2 diabetes mellitus without complications; Z79.4 Long term (current) use of insulin; Z79.899 Other long term (current) drug therapy
CPT/HCPCS: 36416; 71046; 80053; 81003; 81015; 83605; 85025; 87040; 87086; 87804; 36415-59

== ENCOUNTER 2018-12-21 22:53 | Emergency (ER) | payer OTHER ==
[2018-12-21] MEDS ORDERED: Ketorolac Tromethamine 60 MG/2 ML VIAL ONE (23:09)
[2018-12-21] MEDS ORDERED: Cyclobenzaprine 10 MG TAB ONE (23:10)
[2018-12-21 23:25] LABS: Clarity Clear (Clear)
[2018-12-21 23:26] LABS: Bilirubin Negative (Negative); Blood, Urine Large (Negative); Glucose, Urine (Dipstick) Negative (Negative); Leukocyte Negative (Negative); Nitrite Negative (Negative); Protein, Urine (Dipstick) 100 mg/dL (Neg-Trace); Urobilinogen 0.2 mg/dL (0.2-1.0); pH, Urine 5.5 (5.0-9.0)
[2018-12-21 23:27] LABS: Bacteria/HPF Rare-Few HPF (None Seen); Squamous Epithelial 0-3 HPF (0-3); Yeast-All Forms 1+ HPF (None Seen)
[2018-12-21 23:28] LABS: Pregnancy Test - Urine (BHCG) Negative (Negative); Pregu Control Background? CLEAR/WHITE (CLR/WHITE); Pregu Control Bar Appear? YES (CONTROL BAR)
[2018-12-22] MEDS ORDERED: Diazepam 5 MG TAB ONE (00:04)
--- NOTE | 2018-12-22 08:09 | CT ---
PRELIMINARY REPORT/[facility]/EMERGENTY AFTER-HOURS PROCEDURE CT Abdomen and Pelvis Without Contrast EXAM DATE/TIME: 12/21/2018 11:40 PM CLINICAL HISTORY: 28 years old, female; Pain; Abdominal pain; Flank; Other: Bilat; Patient HX: Bilat flank pain TECHNIQUE: Axial computed tomography images of the abdomen and pelvis without contrast. All CT scans at this facility use at least one of these dose optimization techniques: automated expos ure control; mA and/or kV adjustment per patient size (includes targeted exams where dose is matched to clinical indication); or iterative reconstruction. COMPARISON: No relevant prior studies available. FINDINGS: Lower thorax: No acute findings. ABDOMEN: Liver: There is mild hepatomegaly. Gallbladder and bile ducts: Normal. No calcified stones. No ductal dilation. Pancreas: Normal. No ductal dilation. Spleen: There is significant splenomegaly. Adrenals: Normal. No mass. Kidneys and ureters: There may be congenital left ureteropelvic junction obstruction with moderate le ft hydronephrosis. No visible renal, ureteral or bladder calculi. Stomach and bowel: Normal. No obstruction. No mucosal thickening. Appendix: The appendix is unremarkable and seen best on axial image 55 of series 2. PELVIS: Bladder: Unremarkable as visualized. Reproductive: Unremarkable as visualized. ABDOMEN and PELVIS: Intraperitoneal space: Normal. No free air. No significant fluid collection. Bones/joints: No acute fracture. No dislocation. Soft tissues: Unremarkable. Vasculature: Normal. No abdominal aortic aneurysm. Lymph nodes: There is mesenteric and retroperitoneal lymphadenopathy in the abdomen and to a lesser e xtent in the pelvis with the largest lymph nodes in the retroperitoneum in the left periaortic region measuring 1.4 cm in short axis. Lymphoma cannot be excluded. IMPRESSION: 1. There is significant splenomegaly. 2. There may be congenital left ureteropelvic junction obstruction with moderate left hydronephrosis. No visible renal, ureteral or bladder calculi. 3. There is mesenteric and retroperitoneal lymphadenopathy in the abdomen and to a lesser extent in t he pelvis with the largest lymph nodes in the retroperitoneum in the left periaortic region measuring 1.4 cm in short axis. Lymphoma cannot be excluded. Thank you for allowing us to participate in the care of your patient. Dictated and Authenticated by: Rolo Moreland MD 12/22/2018 12:04 AM Central Time ([place] & [place]) FINAL REPORT CT ABDOMEN AND PELVIS WITHOUT CONTRAST: Date: 12-21-[address] of the abdomen and pelvis was performed and compared with an 07-07-15 study. FINDINGS: The lung bases are clear. The liver is somewhat generous in size but about the same as before. Spleno megaly is present as usual. It measures 15.2 cm in AP dimension on the axial images which is comparab le to the size previously. This did not change much over time. The adrenal glands and pancreas are unremarkable. No stones were seen in the gallbladder. The aorta i s normal in caliber. The bowel shows no distention, wall thickening, or inflammatory change around it. A normal appendix i s identified. There are scattered nodes throughout the mesentery and retroperitoneum. The largest are up to 1.4 cm in size and most are smaller. This was the case on the 2014 study and the appearance re ally is fairly similar. Some of the nodes may be marginally larger but overall there has been no dram atic change. Moderate hydronephrosis is present in the left kidney which has some cortical thinning. It is no wors e than the prior study. A 3.5 cm cyst is seen in the upper pole of this kidney. No renal or ureteral calcifications were seen. The right kidney appears normal. CT of the pelvis showed no pelvic masses, fluid collections, or other acute changes. IMPRESSION: 1. No evidence of acute urinary tract obstruction. Left hydronephrosis is comparable to prior studies . Some unevenness of the left renal cortex raises the question of prior infections. 2. Hepatosplenomegaly. The splenic size is really very comparable to the 2015 study. 3. Mesenteric and retroperitoneal adenopathy. This has been seen on prior scans. Changes over time ar e minimal with a few nodes being slightly larger, but still the overall picture is comparable. Given this long-standing appearance, the [facility] concern about possible lymphoma seems unlikely. Report in fundamental agreement with report by [facility] except as noted above. POS: HOME
== END 2018-12-22 00:10 | disposition home or self-care (01) ==
LOC: BURERS 22:53
DX: N39.0 Urinary tract infection, site not specified (principal); E11.9 Type 2 diabetes mellitus without complications; Z79.4 Long term (current) use of insulin; Z79.899 Other long term (current) drug therapy
CPT/HCPCS: 74176; 81003; 81015; 81025; 96372; J1885

== ENCOUNTER 2019-03-11 16:23 | Emergency (ER) | payer OTHER ==
[2019-03-11] MEDS ORDERED: Ketorolac Tromethamine 30 MG/ML VIAL ONE (16:52)
[2019-03-11] MEDS ORDERED: Cephalexin 500 MG CAP ONE (16:52)
== END 2019-03-11 16:46 | disposition home or self-care (01) ==
LOC: BURERS 16:23
DX: J02.9 Acute pharyngitis, unspecified (principal); E11.9 Type 2 diabetes mellitus without complications; D64.9 Anemia, unspecified
CPT/HCPCS: 96372; J1885

== ENCOUNTER 2019-07-01 16:11 | Emergency (ER) | payer OTHER ==
--- NOTE | 2019-07-01 16:46 | RAD ---
EXAM: Two views chest PROVIDED CLINICAL HISTORY: Fever COMPARISON: 10/21/2018. FINDINGS: Cardiac silhouette and pulmonary vasculature are within normal limits. Parenchymal opacity in the ri ght upper lobe has resolved. The lungs are clear on today's exam. The osseous structures have a normal appearance. IMPRESSION: No acute cardiopulmonary process.
[2019-07-01] MEDS ORDERED: Acetaminophen 500 MG TAB ONE (17:00)
== END 2019-07-01 17:18 | disposition home or self-care (01) ==
LOC: BURERS 16:11
DX: J18.1 Lobar pneumonia, unspecified organism (principal); L04.9 Acute lymphadenitis, unspecified; E10.9 Type 1 diabetes mellitus without complications
CPT/HCPCS: 36416; 71046; 87804

== ENCOUNTER 2019-07-07 00:15 | Emergency (ER) | payer OTHER ==
[2019-07-07] MEDS ORDERED: Dexamethasone 4 mg/ml Vial ONE (00:34)
[2019-07-07] MEDS ORDERED: Albuterol Sulfate 1.25 MG/3 ML NEB ONE (00:34)
[2019-07-07] MEDS ORDERED: Ketorolac Tromethamine 60 MG/2 ML VIAL ONE (00:34)
== END 2019-07-07 01:16 | disposition home or self-care (01) ==
LOC: BURERS 00:15
DX: J45.901 Unspecified asthma with (acute) exacerbation (principal); B34.9 Viral infection, unspecified; E11.9 Type 2 diabetes mellitus without complications
CPT/HCPCS: 36416; 96372; J1100; J1885

== ENCOUNTER 2019-09-08 11:36 | Emergency (ER) | payer OTHER ==
[2019-09-08] MEDS ORDERED: Promethazine 25 MG TAB ONE (11:52)
[2019-09-08] MEDS ORDERED: diphenhydrAMINE 25 MG CAP ONE (11:52)
[2019-09-08] MEDS ORDERED: Acetaminophen 500 MG TAB ONE (12:28)
== END 2019-09-08 12:37 | disposition home or self-care (01) ==
LOC: BURERS 11:36
DX: R51 Headache (principal); E11.9 Type 2 diabetes mellitus without complications; D64.9 Anemia, unspecified; J45.909 Unspecified asthma, uncomplicated; Z79.51 Long term (current) use of inhaled steroids; Z79.4 Long term (current) use of insulin; Z79.899 Other long term (current) drug therapy
CPT/HCPCS: 99283; Q0163; Q0169

== ENCOUNTER 2019-10-10 14:27 | Emergency (ER) | payer OTHER ==
[2019-10-10] MEDS ORDERED: Ondansetron ODT 4 MG TAB ONE (14:52)
[2019-10-10] MEDS ORDERED: Ketorolac Tromethamine 60 MG/2 ML VIAL ONE (14:52)
== END 2019-10-10 15:08 | disposition home or self-care (01) ==
LOC: BURERS 14:27
DX: J11.1 Influenza due to unidentified influenza virus with other respiratory manifestations (principal); E11.9 Type 2 diabetes mellitus without complications; J18.9 Pneumonia, unspecified organism; D64.9 Anemia, unspecified; Z79.51 Long term (current) use of inhaled steroids; Z79.899 Other long term (current) drug therapy; Z79.1 Long term (current) use of non-steroidal anti-inflammatories (NSAID)
CPT/HCPCS: J1885; Q0162

== ENCOUNTER 2019-10-17 00:16 | Emergency (ER) | payer OTHER ==
[2019-10-17] MEDS ORDERED: cefTRIAXone\\ROCEPHIN 2 GM VIAL ONE (00:40)
[2019-10-17] MEDS ORDERED: Azithromycin 500 MG VIAL ONE (00:41)
[2019-10-17] MEDS ORDERED: Sodium Chloride 0.9% 100 ML ONE (00:43)
[2019-10-17 01:30] LABS: ALT (SGPT) Less than 7 U/L (8-55); AST (SGOT) 8 U/L (5-34); Albumin 2.9 g/dL (3.5-5.0); Alkaline Phosphatase 87 U/L (40-110); Anion Gap 26 mmol/L (10-20); BUN (Urea Nitrogen) 43 mg/dL (7.0-18.7); Bilirubin, Total 1.7 mg/dL (0.2-1.2); CK (CPK) 11 U/L (29-168); Calc. Creatinine Clearance 0 mL/min (70-130); Calcium 9.3 mg/dL (7.8-10.44); Carbon Dioxide 13 mmol/L (22-29); Chloride 95 mmol/L (98-107); Estimated GFR-MDRD 20; Globulin 3.4 g/dL (2.4-3.5); Potassium 5.5 mmol/L (3.5-5.1); Protein, Total 6.3 g/dL (6.0-8.3); Sodium 128 mmol/L (136-145)
[2019-10-17 01:36] LABS: Glucose 755 mg/dL (70-105); Mean Corpuscular HGB CONC 29.8 g/dL (32.0-36.0); Mean Corpuscular Hemoglobin 26.5 pg (27.0-31.0); Mean Corpuscular Volume 88.7 fL (78.0-98.0); Mean Platelet Volume 8.5 fL (7.4-10.4); Platelet Count 62 thou/uL (130-400); RBC Distribution Width 14.5 % (11.5-14.5); Red Blood Cell (RBC) Count 3.03 mill/uL (4.20-5.40); White Blood Cell (WBC) Count 10.6 thou/uL (4.8-10.8)
[2019-10-17 01:49] LABS: Band 10 % (5-11); Lymphocytes 8 % (21-51); MDiff Complete? YES; Monocytes 3 % (0-10); Neutrophil 79 % (42-75); Platelet Morphology Comment Appears Decreased; RBC Morphology Normal
--- NOTE | 2019-10-17 08:20 | RAD ---
PORTABLE CHEST: DATE: 10/17/2019. FINDINGS: There is a large opacity in the left upper lobe that was not present on an 07/01/2019 study. Given th time course, a consolidation of pneumonia is presumed. The right lung is clear. The heart is normal in size. The mediastinum showed no shift. There are no large effusions. IMPRESSION: Dense left upper lobe opacity, presumably, pneumonia. POS: HOME
== END 2019-10-17 02:20 | disposition home or self-care (01) ==
LOC: BURERS 00:16
DX: A41.9 Sepsis, unspecified organism (principal); J18.9 Pneumonia, unspecified organism; E11.9 Type 2 diabetes mellitus without complications; D64.9 Anemia, unspecified; J45.909 Unspecified asthma, uncomplicated; Z79.4 Long term (current) use of insulin; Z79.51 Long term (current) use of inhaled steroids; Z79.899 Other long term (current) drug therapy
CPT/HCPCS: 36415; 71045; 80053; 82550; 83605; 85025; 87040; 87077; 87149; 87186; 87804; 93005; 96365; 96375; J0456; J0696; J3490

== ENCOUNTER 2019-11-08 10:51 | Outpatient (CLI) | payer OTHER ==
--- NOTE | 2019-11-08 11:43 | ULT ---
RIGHT UPPER EXTREMITY VENOUS DOPPLER ULTRASOUND: HISTORY: Pain in the right upper extremity TECHNIQUE: Grayscale color-flow and spectral Doppler imaging of the deep venous systems of the right upper extre mity was performed FINDINGS: There is good flow, compression and normal spectral waveforms in the internal jugular, subclavian, ax illary, brachial, radial, ulnar, basilic and cephalic veins . IMPRESSION: No evidence of DVT in the right upper extremity.
[2019-11-08 17:15] LABS: Bacteria/HPF None Seen HPF (None Seen); Bilirubin Negative (Negative); Blood, Urine Negative (Negative); Clarity Turbid (Clear); Glucose, Urine (Dipstick) Normal (Negative); Leukocyte 250 Leu/uL (Negative); Nitrite Negative (Negative); Protein, Urine (Dipstick) 30 mg/dL (Neg-Trace); Renal Epithelial 0-3 HPF (None Seen); Squamous Epithelial Greater than 50 HPF (0-3); Transitional Epithelial 0-3 HPF (None Seen); Urobilinogen Normal mg/dL (Less than 2); WBC/HPF 21-50 HPF (0-3)
[2019-11-08 17:52] LABS: ALT (SGPT) 9 U/L (8-55); AST (SGOT) 9 U/L (5-34); Albumin 3.7 g/dL (3.5-5.0); Alkaline Phosphatase 80 U/L (40-110); Anion Gap 15 mmol/L (10-20); BUN (Urea Nitrogen) 21 mg/dL (7.0-18.7); Bilirubin, Total 0.7 mg/dL (0.2-1.2); CRP (Inflammatory) 2.92 mg/dL (= or < 0.5); Calc. Creatinine Clearance 0 mL/min (70-130); Calcium 9.6 mg/dL (7.8-10.44); Carbon Dioxide 24 mmol/L (22-29); Chloride 107 mmol/L (98-107); Estimated GFR-MDRD 44; Globulin 2.4 g/dL (2.4-3.5); Glucose 168 mg/dL (70-105); Potassium 4.8 mmol/L (3.5-5.1); Protein, Total 6.1 g/dL (6.0-8.3); Sodium 141 mmol/L (136-145)
[2019-11-08 18:24] LABS: Anisocytosis SLIGHT = 6-15 cells (100X) (0-5/hpf); Band 6 % (5-11); Eosinophils 1 % (0-10); Hemoglobin 7.2 g/dL (12.0-16.0); Lymphocytes 31 % (21-51); MDiff Complete? YES; Mean Corpuscular Hemoglobin 28.3 pg (27.0-31.0); Mean Corpuscular Volume 80.7 fL (78.0-98.0); Mean Platelet Volume 10.2 fL (7.4-10.4); Monocytes 4 % (0-10); Neutrophil 55 % (42-75); Ovalocytes SLIGHT = 2-5 cells (100X) (0-1/hpf); Platelet Count 89 thou/uL (130-400); Platelet Morphology Comment Appears Decreased; Polychromasia MODERATE = 3-4 cells (100X) (0-2/hpf); RBC Distribution Width 17.2 % (11.5-14.5); Reactive Lymphocytes 2 % (0-10); Red Blood Cell (RBC) Count 2.53 mill/uL (4.20-5.40); Stomatocytes SLIGHT = 2-5 cells (100X) (0-1/hpf); Tear Drops SLIGHT = 2-5 cells (100X) (0-1/hpf); White Blood Cell (WBC) Count 3.4 thou/uL (4.8-10.8)
== END 2019-11-08 10:52 | disposition home or self-care (01) ==
LOC: BURULT 10:51
PROVIDERS: ATTEND Family Medicine
DX: M79.601 Pain in right arm (principal); E11.10 Type 2 diabetes mellitus with ketoacidosis without coma; A41.9 Sepsis, unspecified organism
CPT/HCPCS: 36415; 80053; 81001; 85025; 85652; 86140

== ENCOUNTER 2019-11-14 13:07 | Outpatient (CLI) | payer OTHER ==
--- NOTE | 2019-11-14 17:46 | CT ---
CT OF THE THORAX WITHOUT CONTRAST: Date: 11-14-[address] of the chest was performed without IV contrast for evaluation of continued pain at or above the right medial clavicle. History: The patient has a known left lower lobe consolidation. Lungs were formally clear as recent as this past June. On a September CT there were also patchy infi ltrates in the right upper and right lower lobes. FINDINGS: The large consolidation involving most of the left lower lobe is still present and extensive. It has improved slightly since the September CT of the thorax. The infiltrative changes seen in the right jose g at that time have resolved completely. The right lung is now clear. There are no large pleural effu sions present on the right. As before, there is still considerable mediastinal adenopathy. This is pr esent bilaterally, though especially on the left. Scans into the upper abdomen show a generous sized liver and a very large spleen measuring at least 1 7 cm in AP length. Gallbladder is 9.1 cm long but not unlike it was before and it really does not aimee ear distended or to have any wall thickening. A small hiatal hernia is suggested. Regarding the inflammatory area anterior to the medial right clavicle, this is definitely improved si nce the 10-22 CT of the neck. Some of the inflammation now appears to enter into the right sternoclav icular joint. The sternal head of the medial right clavicle shows a very faint irregularity to it humza t was not present in September. These findings suggest the possibility that this was a septic joint, t jesus alberto the majority of the inflammatory change was above and outside the joint on the prior scans. At any rate, it has improved. IMPRESSION: 1. Area of inflammatory change near the right sternoclavicular joint has improved considerably since September. There is still some inflammatory change remaining and on today's scan, some of it extends i nto the sternoclavicular joint. Irregularity of the medial right clavicular head further suggests humza t this may have been an infected joint. 2. Extensive left lower lobe consolidation. Definitely improved since September, but still quite exten sive. Further follow up required. 3. Right sided infiltrates seen in September have resolved. 4. Mediastinal adenopathy is abundant, probably reactive to the above infections. 5. Mild hepatomegaly. Prominent splenomegaly, no change since September. POS: HOME
[2019-11-14 21:54] LABS: Anisocytosis SLIGHT = 6-15 cells (100X) (0-5/hpf); Band 2 % (5-11); Eosinophils 3 % (0-10); Hemoglobin 7.3 g/dL (12.0-16.0); Lymphocytes 35 % (21-51); MDiff Complete? YES; Mean Corpuscular HGB CONC 33.6 g/dL (32.0-36.0); Mean Corpuscular Hemoglobin 28.6 pg (27.0-31.0); Mean Corpuscular Volume 85.2 fL (78.0-98.0); Monocytes 9 % (0-10); Myelocyte 1 % (0-0); Neutrophil 50 % (42-75); Nucleated RBC 1 % (0); Platelet Count 86 thou/uL (130-400); Platelet Morphology Comment Appears Decreased; RBC Distribution Width 18.8 % (11.5-14.5); Red Blood Cell (RBC) Count 2.54 mill/uL (4.20-5.40); White Blood Cell (WBC) Count 2.7 thou/uL (4.8-10.8)
== END 2019-11-14 13:08 | disposition home or self-care (01) ==
LOC: BURCT 13:07
PROVIDERS: ATTEND Family Medicine
DX: M25.511 Pain in right shoulder (principal); D61.818 Other pancytopenia; J18.9 Pneumonia, unspecified organism; R59.0 Localized enlarged lymph nodes; R16.2 Hepatomegaly with splenomegaly, not elsewhere classified
CPT/HCPCS: 71250; 85025

== ENCOUNTER 2019-12-21 00:17 | Emergency (ER) | payer OTHER ==
[2019-12-21 01:12] LABS: ALT (SGPT) 9 U/L (8-55); AST (SGOT) 20 U/L (5-34); Albumin 3.9 g/dL (3.5-5.0); Alkaline Phosphatase 52 U/L (40-110); Anion Gap 20 mmol/L (10-20); Anisocytosis SLIGHT = 6-15 cells (100X) (0-5/hpf); BUN (Urea Nitrogen) 21 mg/dL (7.0-18.7); Band 14 % (5-11); Bilirubin, Total 0.9 mg/dL (0.2-1.2); Calc. Creatinine Clearance 0 mL/min (70-130); Carbon Dioxide 17 mmol/L (22-29); Chloride 106 mmol/L (98-107); Estimated GFR-MDRD 36; Globulin 2.3 g/dL (2.4-3.5); Glucose 139 mg/dL (70-105); Hemoglobin 9.9 g/dL (12.0-16.0); Hypochromia SLIGHT = 6-15 cells (100X) (0-5/hpf); Large Platelets SLIGHT; Lymphocytes 17 % (21-51); MDiff Complete? YES; Mean Corpuscular HGB CONC 30.9 g/dL (32.0-36.0); Mean Corpuscular Hemoglobin 26.9 pg (27.0-31.0); Mean Platelet Volume 10.3 fL (7.4-10.4); Monocytes 9 % (0-10); Myelocyte 1 % (0-0); Neutrophil 58 % (42-75); Platelet Count 75 thou/uL (130-400); Platelet Morphology Comment Appears Decreased; Potassium 4.7 mmol/L (3.5-5.1); Protein, Total 6.2 g/dL (6.0-8.3); RBC Distribution Width 15.9 % (11.5-14.5); Reactive Lymphocytes 1 % (0-10); Red Blood Cell (RBC) Count 3.68 mill/uL (4.20-5.40); Sodium 138 mmol/L (136-145); White Blood Cell (WBC) Count 5.7 thou/uL (4.8-10.8)
[2019-12-21 01:14] LABS: Bilirubin Small (Negative); Blood, Urine Moderate (Negative); Clarity Slightly Cloudy (Clear); Glucose, Urine (Dipstick) Negative (Negative); Leukocyte Negative (Negative); Nitrite Negative (Negative); Protein, Urine (Dipstick) > or equal to 300 mg/dL (Neg-Trace); Urobilinogen 0.2 mg/dL (Less than 2)
[2019-12-21 01:17] LABS: Squamous Epithelial 0-3 HPF (0-3)
[2019-12-21 01:18] LABS: Bacteria/HPF 1+ HPF (None Seen); Yeast-Budding Rare HPF (None Seen)
[2019-12-21] MEDS ORDERED: cefTRIAXone\\ROCEPHIN 2 GM VIAL ONE (01:22)
[2019-12-21 01:29] LABS: Pregu Control Background? CLEAR/WHITE (CLR/WHITE); Pregu Control Bar Appear? YES (CONTROL BAR); Specific Gravity 1.025 (1.002-1.036)
[2019-12-21 01:30] LABS: Pregnancy Test - Urine (BHCG) Negative (Negative)
[2019-12-21 01:34] LABS: Barbiturates Screen Detected (NotDetected)
[2019-12-21 01:35] LABS: Amphetamine Not Detected (NotDetected); Benzodiazepine Screen Not Detected (NotDetected); Cocaine Metabolite Screen Not Detected (NotDetected); Medtox Control Line Valid? VALID (VALID); Methadone Not Detected (NotDetected); Methamphetamine Not Detected (NotDetected); Opiate Screen Not Detected (NotDetected); Oxycodone Screen Not Detected (NotDetected); Phencyclidine (PCP) Not Detected (NotDetected); THC/Cannabinoid Screen Not Detected (NotDetected); Tricyclic Screen Not Detected (NotDetected)
[2019-12-21] MEDS ORDERED: Aspirin Chewable 81 MG TAB ONE ×2 (01:47)
[2019-12-21 01:58] LABS: CKMB 0.4 ng/mL (0-6.6)
--- NOTE | 2019-12-21 08:04 | RAD ---
PORTABLE CHEST: Date: 12/21/2019 Comparison made with the 12/01/2019 study. FINDINGS: There has been further improvement in the linear opacity in the left upper lobe. The lower lobe seems clear. A little increased density in the right lower lobe is thought to be due to overlapping shadow s. Heart size remains normal. IMPRESSION: Improvement in right upper lobe density since 12/01/2019. Some residual still exists. A follow-up jesus m in 2-4 weeks might be considered. POS: HOME
== END 2019-12-21 02:10 | disposition short-term general hospital (02) ==
LOC: BURERS 00:17
DX: J18.9 Pneumonia, unspecified organism (principal); R79.89 Other specified abnormal findings of blood chemistry; E86.0 Dehydration; E83.42 Hypomagnesemia; E87.2 Acidosis; D64.9 Anemia, unspecified; J45.909 Unspecified asthma, uncomplicated; D89.89 Other specified disorders involving the immune mechanism, not elsewhere classified; Z79.51 Long term (current) use of inhaled steroids; Z79.899 Other long term (current) drug therapy; Z79.1 Long term (current) use of non-steroidal anti-inflammatories (NSAID); Z79.4 Long term (current) use of insulin
CPT/HCPCS: 36415; 36416; 71045; 80053; 80306; 81003; 81015; 81025; 82550; 82553; 83605; 83735; 83880; 84484; 85025; 87040; 87804; 93005; 94760; 96365; J0696

== ENCOUNTER 2020-05-30 16:21 | Emergency (ER) | payer OTHER ==
--- NOTE | 2020-05-31 07:02 | RAD ---
CHEST 2 VIEWS: Date: 05/30/2020 The patient did not take a very deep inspiration, which crowds the lung markings and makes evaluation of the lungs more difficult and less sensitive. No major lobar infiltrate seen. No effusion. Heart s ize is normal. The generalized haziness throughout the lungs is thought to be more likely due to the incomplete breath. If symptoms continue, then repeat study in a deeper degree of inspiration could be needed. IMPRESSION: No definite acute findings, but sensitivity is reduced, as stated above. POS: HOME
[2020-05-31 16:09] LABS: SARS-CoV-2 MS2 Positive; SARS-CoV-2 N Gene Negative; SARS-CoV-2 S Gene Negative; SARS-CoV-2 orf1ab Negative
== END 2020-05-30 17:22 | disposition home or self-care (01) ==
LOC: BURERS 16:21
DX: R05 Cough (principal); R51 Headache; R50.9 Fever, unspecified; R53.81 Other malaise; J45.909 Unspecified asthma, uncomplicated; D64.9 Anemia, unspecified; E10.9 Type 1 diabetes mellitus without complications; F79 Unspecified intellectual disabilities; Z20.828 Contact with and (suspected) exposure to other viral communicable diseases
CPT/HCPCS: 71046; 87635; U0003

== ENCOUNTER 2020-06-19 19:14 | Inpatient (IN) | payer OTHER ==
[2020-06-19 20:25] LABS: Bilirubin Small (Negative); Blood, Urine Large (Negative); Glucose, Urine (Dipstick) 500 mg/dL (Negative); Ketone, Urine 40 mg/dL (Negative); Leukocyte Trace (Negative); Nitrite Negative (Negative); Protein, Urine (Dipstick) > or equal to 300 mg/dL (Neg-Trace); Specific Gravity, Urine 1.015 (1.005-1.030); Urobilinogen 0.2 mg/dL (Less than 2); pH, Urine 5.5 (5.0-9.0)
[2020-06-19 20:32] LABS: Clarity Cloudy (Clear)
[2020-06-19 20:33] LABS: Bacteria/HPF 1+ HPF (None Seen); RBC/HPF 21-50 HPF (0-3)
[2020-06-19 20:37] LABS: Pregnancy Test - Urine (BHCG) Negative (Negative); Pregu Control Background? CLEAR/WHITE (CLR/WHITE); Pregu Control Bar Appear? YES (CONTROL BAR); Specific Gravity 1.015 (1.002-1.036)
[2020-06-19 20:41] LABS: Amphetamine Not Detected (NotDetected); Barbiturates Screen Not Detected (NotDetected); Benzodiazepine Screen Not Detected (NotDetected); Cocaine Metabolite Screen Not Detected (NotDetected); Medtox Control Line Valid? VALID (VALID); Methadone Not Detected (NotDetected); Methamphetamine Not Detected (NotDetected); Opiate Screen Not Detected (NotDetected); Oxycodone Screen Not Detected (NotDetected); Phencyclidine (PCP) Not Detected (NotDetected); THC/Cannabinoid Screen Not Detected (NotDetected); Tricyclic Screen Not Detected (NotDetected)
[2020-06-19 20:56] LABS: ALT (SGPT) 9 U/L (8-55); AST (SGOT) 7 U/L (5-34); Albumin 3.3 g/dL (3.5-5.0); Alkaline Phosphatase 63 U/L (40-110); Anion Gap 22 mmol/L (10-20); BUN (Urea Nitrogen) 26 mg/dL (7.0-18.7); Bilirubin, Total 0.9 mg/dL (0.2-1.2); Calc. Creatinine Clearance 0 mL/min (70-130); Calcium 8.8 mg/dL (7.8-10.44); Carbon Dioxide 16 mmol/L (22-29); Chloride 95 mmol/L (98-107); Estimated GFR-MDRD 22; Globulin 2.9 g/dL (2.4-3.5); Glucose 541 mg/dL (70-105); Lipase 18 U/L (8-78); Potassium 5.5 mmol/L (3.5-5.1); Protein, Total 6.2 g/dL (6.0-8.3); Sodium 127 mmol/L (136-145)
[2020-06-19 21:00] LABS: Band 8 % (5-11); Hemoglobin 8.2 g/dL (12.0-16.0); Hypochromia SLIGHT = 6-15 cells (100X) (0-5/hpf); Lymphocytes 9 % (21-51); MDiff Complete? YES; Mean Corpuscular HGB CONC 29.2 g/dL (32.0-36.0); Mean Corpuscular Hemoglobin 26.3 pg (27.0-31.0); Mean Corpuscular Volume 89.9 fL (78.0-98.0); Mean Platelet Volume 9.3 fL (7.4-10.4); Monocytes 8 % (0-10); Neutrophil 74 % (42-75); Ovalocytes SLIGHT = 2-5 cells (100X) (0-1/hpf); Platelet Count 47 thou/uL (130-400); Platelet Morphology Comment Appears Decreased; RBC Distribution Width 15.1 % (11.5-14.5); Red Blood Cell (RBC) Count 3.11 mill/uL (4.20-5.40); Tear Drops SLIGHT = 2-5 cells (100X) (0-1/hpf); Vacuoles SLIGHT; White Blood Cell (WBC) Count 5.9 thou/uL (4.8-10.8)
--- NOTE | 2020-06-19 21:06 | RAD ---
PORTABLE CHEST: 06/19/20 An AP portable film at 2046 is compared with a 05/30/2020 study. The film is taken in partial expiration. This causes some crowding of the basilar markings. Allowing for depth of inspiration, the lungs are probably clear. No lobar infiltrates or large effusions were seen. A deeper breath might show more basilar pathology. IMPRESSION: Shallow breath but no definite acute finding. POS: HOME
--- NOTE | 2020-06-19 21:35 | CT ---
CT ABDOMEN AND PELVIS WITHOUT CONTRAST: 06/19/[address] of the abdomen and pelvis was performed for evaluation of abdominal pain. Scans were done w ithout IV contrast due to a low GFR. Comparison was made with an 10/17/19 study. The lung bases are clear. The liver is generous in size but no different than before. The spleen is q uite large, measuring about 16 cm in anterior posterior dimension and about 20 cm from superior to in ferior. This is slightly larger than on the 2019 scan, though not by much. The pancreas, gallbladder, adrenal glands and aorta showed no acute findings within the limitations of a noncontrast study. The right kidney appeared normal. There is chronic obstruction of the left kidney, maybe even with a par apelvic cyst, but the appearance seems no different than the 2019 study. There is no distention of bowel or inflammatory change around bowel. No free air or free fluid was se en. There is quite a bit of mesenteric adenopathy present. This was true before, though some of the n odes seem slightly larger today than previously. CT of the pelvis showed no pelvic masses, inflammatory changes, or fluid collections. There were no a cute bony changes. IMPRESSION: 1. Very large spleen, maybe marginally larger than 2019. 2. Abundant mesenteric adenopathy with some nodes to just over 2 cm in size. Such adenopathy was present previously as well, though the size and number of nodes may have increased slightly. 3. Chronic obstruction of the left kidney with little change in the appearance since 2019. Findings discussed with Dr. Rebolledo at 2121 on 06/19/20. POS: HOME
[2020-06-19 21:37] LABS: Base Excess-Venous -5.7 mmol/L (-2.0 to 3.0); Bicarbonate (HCO3v) 18.2 mmol/L (22.0-28.0); CO2 Tension (PvCO2) 29.2 mmHg (40.0-50.0); Calcium, Ionized 1.08 mmol/L (See Comments:); Chloride 97 mmol/L (98-107); Hemoglobin - Calc 9.1 g/dL (12.0-16.0); Potassium 5.3 mmol/L (3.5-5.1); Sodium 126 mmol/L (138-145); T. Carbon Dioxide 19.1 mmol/L (22.0-28.0); vO2 Saturation-calc 85.4 % (60.0-85.0)
[2020-06-19] MEDS ORDERED: Morphine 4 MG/ML VIAL ONE (22:14)
[2020-06-19] MEDS ORDERED: HumaLOG 300 UNITS/3 ML VIAL SC SCH (23:00)
[2020-06-20 00:25] VITALS: BMI 29.0
[2020-06-20] MEDS ORDERED: Ondansetron PF 4 MG/2 ML Vial IVP PRN (01:11)
[2020-06-20] MEDS: Sodium Chloride 0.9% 1,000 ML IV SCH ×6 (01:11→21:37)
[2020-06-20] MEDS ORDERED: Ondansetron ODT 4 MG TAB SL PRN (01:11)
[2020-06-20] MEDS ORDERED: Dextrose 5% in Water 1,000 ML IV PRN ×2 (01:12→17:31)
[2020-06-20] MEDS ORDERED: Dextrose 50% Abboject 50 ML SYRINGE IVP PRN (01:12)
[2020-06-20] MEDS ORDERED: Morphine 4 MG/ML VIAL SLOW IVP PRN (01:12)
[2020-06-20] MEDS: HumaLOG 300 UNITS/3 ML VIAL SC PRN ×3 (01:39→16:43)
[2020-06-20] MEDS ORDERED: HumaLOG 300 UNITS/3 ML VIAL SC SCH (12:45)
[2020-06-20] MEDS ORDERED: guaiFENesin ER 600 MG TAB PO PRN (17:22)
[2020-06-20] MEDS ORDERED: METHOCARBAMOL 500 MG PO PRN (17:22)
[2020-06-20] MEDS ORDERED: BUTALBITAL PO PRN (17:22)
[2020-06-20] MEDS ORDERED: Fluticasone Propionate Nasal Spray 16 gm Bottle NASAL PRN (17:22)
[2020-06-20] MEDS ORDERED: Ventolin HFA Inhaler 60 PUFF INHALER INH PRN (17:22)
[2020-06-20] MEDS ORDERED: ACETAMINOPHEN PO PRN (17:22)
[2020-06-20] MEDS ORDERED: [UNRECOGNIZED DRUG - OTHER] PO PRN (17:22)
[2020-06-20] MEDS ORDERED: Acetaminophen/Codeine 30-300mg Tablet PO PRN (17:30)
[2020-06-20] MEDS ORDERED: Lidocaine Viscous Sol 2% 15 ml UD Cup SSP PRN (17:56)
[2020-06-20] MEDS: Ciprofloxacin 500 MG TAB PO SCH (19:53)
[2020-06-20] MEDS: traMADol HCl 50 MG TAB PO SCH (19:53)
[2020-06-20] MEDS: valACYclovir 500 MG TAB PO SCH (19:53)
[2020-06-20] MEDS: Montelukast Sodium 10 mg Tablet PO SCH (19:53)
[2020-06-20] MEDS: Nystatin Cream 15 GM TUBE TOP SCH (19:57)
[2020-06-20] MEDS: Mometasone/Formoterol 200/5 60 PUFF INH SCH (20:01)
[2020-06-20] MEDS: PREGABALIN 25 MG PO SCH (20:23)
[2020-06-20] MEDS ORDERED: Non-Formulary Item 1 EACH (Insulin Glargine,Hum.Rec.Anlog [Lantus Solostar] 50 UNIT) SQ SCH (21:00)
[2020-06-20] MEDS ORDERED: Lantus 1000 UNITS/10 ML VIAL SC SCH (21:00)
--- NOTE | 2020-06-21 01:04 | HP ---
CHIEF COMPLAINT: Abdominal pain. HISTORY OF THE PRESENT ILLNESS: Ms. Giraldo is a 30-year-old female who presented to the emergency department yesterday, poor historian, unaccompanied. Complaining of abdominal pain for the last 24 hours. During her workup, she underwent a CT scan of abdomen and pelvis with no acute findings. Chest x-ray with no acute findings. Urinalysis significant for white cells as well as some blood and a glucose of 541 in the context of decreased CO2. The patient had ketones in the urine but was ruled out for DKA with venous blood gas that showed a normal pH. The patient was given IV fluids, insulin, and was recommended placement to the floor for further treatment. At the bedside, the patient reports burning to the perineum with urination, but is noted to have a rash in this area and has lower abdominal pain, nausea, and has complained of recurrent herpetic outbreak to the lip extending up into the nose and involving the tongue. This is similar to previous outbreaks of herpes labialis that she has had in the past per her report. In addition, she was also noted to have some renal failure. She also reports to be having some intermittent fever, but this is nonspecific and she is unable to give a T-max. She is unable to state why her glucose might be so elevated and if she has missed any medication. PAST MEDICAL HISTORY: 1. Type 2 diabetes, insulin dependent. 2. Pancytopenia with h/o autoimmune hemolytic anemia, followed by Dr. Lozano. 3. Asthma. 4. Mild mental retardation. 5. Obesity. 6. Stage 3 chronic kidney disease, with a chronically "blocked" left kidney that is known. 7. Menstrual migraines. 8. Diabetic neuropathy. 9. Acid reflux. 10. Dental abscesses. PAST SURGICAL HISTORY: 1. Bone marrow biopsy by Dr. Lozano on December 2019 that showed normal results, done for pancytopenia. 2. Lung biopsy on December 26, 2019, showing benign lung parenchyma, bronchial tissue with focal chronic inflammation, but no malignancy identified or granuloma or viral cytopathic effect. 3. Fine-needle aspiration of lymph node December 26, 2019 that showed no malignant cells identified. 4. Bronchial washings December 26, 2019 and brushings that showed no malignant cells identified, performed by Dr. Segovia. ALLERGIES: 1. KEFLEX. 2. LISINOPRIL. 3. LOSARTAN. 4. BACTRIM. FAMILY HISTORY: Significant for diabetes. SOCIAL HISTORY: She lives with her mother. Does not smoke. Does not drink and no drugs. MEDICATIONS: 1. Fioricet one q.4 hours p.r.n. menstrual migraine. 2. Famotidine 20 mg p.o. daily. 3. Flonase two sprays each naris daily. 4. Folvite 1 mg daily. 5. Guaifenesin ER 600 mg q.12 hours p.r.n. cough. 6. Lantus 50 units subcu daily. 7. Robaxin 500 mg p.o. t.i.d. p.r.n. 8. Dulera two puffs inhaled b.i.d. 9. Singulair 10 mg p.o. q.p.m. 10. Lyrica 25 mg p.o. b.i.d. 11. Florastor 250 mg p.o. daily. 12. Ventolin HFA two puffs inhaled q.4 hours p.r.n. wheezing and shortness of breath. 13. Tramadol 50 mg TID for chronic pain. 14. Aceteminophen with codiene, 1 po qhs for chronic pain. REVIEW OF SYSTEMS: GENERAL: Positive for fever and fatigue. HEENT: Positive for oral pain secondary to rash, tongue pain. Denies nasal congestion, rhinorrhea, or ear pain. NECK: Denies neck pain. RESPIRATORY: Denies shortness of breath or cough. GI: Lower abdominal pain without vomiting. Positive nausea. No diarrhea or constipation. GENITOURINARY: Positive dysuria. LYMPH: No lymphadenopathy or easy bleeding or bruising. PSYCHIATRIC: Denies anxiety or depression. SKIN: Rash to the lips and tongue as noted above, and some redness to the perineal region reported to nursing without vesicles or ulceration. PHYSICAL EXAMINATION: VITAL SIGNS: In the ER, blood pressure 92/39, heart rate 123, respirations 18, temperature 97.9, pain 10/10, O2 saturation 98% on room air. At my exam; temperature 97.6, pulse 88, blood pressure 112/57, respirations 18, and O2 saturation 97% on room air. GENERAL: Obese female, alert and oriented x3, in no acute distress. HEENT: Normocephalic and atraumatic. Pupils are equal, round, and reactive to light and accommodation. Extraocular muscles intact. Nares are patent without discharge. Tongue protrudes in the midline with ulcerated lesions noted to the tip and anterior aspect. ORAL: Vesicles and honey-crusted appearing lesions to the upper lip at vermilion border extending to the nasolabial fold. NECK: Supple without lymphadenopathy or thyromegaly. HEART: Regular rate and rhythm. Normal S1 and S2. No murmurs, clicks, rubs, or gallops. LUNGS: Clear to auscultation with good air entry bilaterally. No crackles or wheezes. ABDOMEN: Positive bowel sounds in all 4 quadrants. Soft, nontender, and nondistended. No masses, guarding, or rebound tenderness. EXTREMITIES: No cyanosis, clubbing, or edema. LABORATORY DATA: White count 5.9 with hemoglobin 8.2, hematocrit 28.0, platelets 47. Venous blood gas; pH 7.403, sodium 127, potassium 5.5, chloride 95, bicarb 16, BUN 26, creatinine 2.53, glucose 541, lactic acid 1.2, calcium 8.8. LFTs normal. Troponin I 0.015. B-type natriuretic peptide 30.3, lipase 18. Urine significant for greater than or equal to 300 protein, 500 glucose, 40 ketones, large blood, small bilirubin, trace leuks, 21 to 50 rbc, 7 to 10 wbc, 1+ bacteria. Negative urine test. Urine drug screen negative. COVID-19 pending. Urine culture pending. IMAGING: CT scan of abdomen and pelvis with a very large spleen, abundant mesenteric adenopathy with some nodes to just over 2 cm in size and chronic obstruction of the left kidney with little change in appearance since 2019. Chest x-ray shows shallow breath, but no definite acute finding. ASSESSMENT AND PLAN: 1. Acute renal failure due to prerenal azotemia from dehydration secondary to hyperglycemia. The patient was given approximately 4 L of IV fluids in the emergency room and appears to be more comfortable. We will repeat a basic metabolic profile in the morning. 2. Hyperglycemia. The patient was given NovoLog several doses in the emergency room and a dose of 40 units of Lantus. It is unclear if the patient has been compliant with her medication regimen at home. We will continue her on 50 units of basal insulin daily and place her on sliding scale algorithm and adjust accordingly. The patient was ruled out for diabetic ketoacidosis prior to arrival to the floor. 3. Acute cystitis with hematuria. The patient will be placed on Cipro due to her medication allergies and urine culture will be done. We will order blood cultures x2. 4. Herpetic gingivostomatitis. The patient has a history of immunocompromised status. Place her on Valtrex 1 g b.i.d. for 5 days and give her viscous lidocaine prior to meals for discomfort as needed. 5. Tinea Cruris. This does not seem to be intravaginal, but at least present in the perineum and we will treat with nystatin cream. This may be contributing to her urinary discomfort, but I suspect it is chronic and secondary to her elevated glucose and poor diabetic control. 6. Pancytopenia with history of autoimmune hemolytic anemia. This appears to be stable at this time. We will repeat a CBC in the a.m. 7. Menstrual migraines. The patient is not complaining at this point, but we will order Fioricet p.r.n. 8. Neuropathy. The patient's Lyrica will be continued. 9. Insulin-dependent diabetes. Please see above. 10. Acid reflux. The patient's famotidine will be continued. 11. Asthma. The patient's Singulair and Dulera will be continued with Ventolin p.r.n. Follow up COVID testing and until then use metered-dose inhaler and avoid aerosolized treatments until results are back. 12. Chronic pain. We will order the patient's usual dose of tramadol that she gets three times daily as needed and Tylenol No. 3 that she gets at bedtime as needed. 13. Prophylaxis. We will place SCDs in. She is already on Pepcid. Job ID: [id number] [facility]
[2020-06-21] MEDS: Sodium Chloride 0.9% 1,000 ML IV SCH ×4 (02:41→23:58)
[2020-06-21 05:04] LABS: Anion Gap 15 mmol/L (10-20); BUN (Urea Nitrogen) 28 mg/dL (7.0-18.7); Calc. Creatinine Clearance 61 mL/min (70-130); Calcium 7.6 mg/dL (7.8-10.44); Carbon Dioxide 14 mmol/L (22-29); Chloride 111 mmol/L (98-107); Estimated GFR-MDRD 34; Glucose 391 mg/dL (70-105); Potassium 4.7 mmol/L (3.5-5.1); Sodium 135 mmol/L (136-145)
[2020-06-21 05:14] LABS: #Eosinphils 0.1 thou/uL (0.0-0.7); #Lymphocytes 0.5 thou/uL (1.20-3.40); #Monocytes 0.2 thou/uL (0.11-0.59); #Neutrophils 1.8 thou/uL (1.40-6.50); %Basophils 0.5 % (0.0-1.0); %Eosinophils 2.1 % (0.0-10.0); %Lymphocytes 20.1 % (21.0-51.0); %Monocytes 7.4 % (0.0-10.0); %Neutrophils 69.9 % (42.0-75.0); Anisocytosis SLIGHT = 6-15 cells (100X) (0-5/hpf); Hemoglobin 7.2 g/dL (12.0-16.0); Hypochromia SLIGHT = 6-15 cells (100X) (0-5/hpf); MDiff Complete? YES; Mean Corpuscular HGB CONC 29.7 g/dL (32.0-36.0); Mean Corpuscular Hemoglobin 26.9 pg (27.0-31.0); Mean Corpuscular Volume 90.6 fL (78.0-98.0); Mean Platelet Volume 8.4 fL (7.4-10.4); Ovalocytes SLIGHT = 2-5 cells (100X) (0-1/hpf); Platelet Count 42 thou/uL (130-400); Platelet Morphology Comment Appears Decreased; RBC Distribution Width 16.2 % (11.5-14.5); Red Blood Cell (RBC) Count 2.66 mill/uL (4.20-5.40); White Blood Cell (WBC) Count 2.5 thou/uL (4.8-10.8)
[2020-06-21] MEDS: traMADol HCl 50 MG TAB PO SCH ×3 (08:29→21:29)
[2020-06-21] MEDS: Ciprofloxacin 500 MG TAB PO SCH (08:30)
[2020-06-21] MEDS: valACYclovir 500 MG TAB PO SCH ×2 (08:31→21:16)
[2020-06-21] MEDS: Famotidine 20 MG TAB PO SCH (08:31)
[2020-06-21] MEDS: Folic Acid 1 MG TAB PO SCH (08:32)
[2020-06-21] MEDS: Saccharomyces boulardii 250 MG CAP PO SCH (08:33)
[2020-06-21] MEDS: Mometasone/Formoterol 200/5 60 PUFF INH SCH ×2 (08:37→21:18)
[2020-06-21] MEDS: Nystatin Cream 15 GM TUBE TOP SCH ×2 (08:41→21:00)
[2020-06-21] MEDS: HumaLOG 300 UNITS/3 ML VIAL SC PRN ×3 (08:42→21:19)
[2020-06-21] MEDS ORDERED: Non-Formulary Item 1 EACH (Insulin Glargine,Hum.Rec.Anlog [Lantus Solostar] 50 UNIT) SQ SCH (09:00)
[2020-06-21] MEDS ORDERED: Sodium Chloride 0.9% 1,000 ML IV SCH (12:56)
[2020-06-21] MEDS ORDERED: Lantus 1000 UNITS/10 ML VIAL SC SCH ×2 (13:09→21:00)
[2020-06-21] MEDS ORDERED: HumaLOG 300 UNITS/3 ML VIAL SC SCH (13:45)
[2020-06-21 13:52] LABS: Base Excess-Venous -7.6 mmol/L (-2.0 to 3.0); Bicarbonate (HCO3v) 18.8 mmol/L (22.0-28.0); CO2 Tension (PvCO2) 41.8 mmHg (40.0-50.0); Calcium, Ionized 1.13 mmol/L (See Comments:); Chloride 108 mmol/L (98-107); Hemoglobin - Calc 7.2 g/dL (12.0-16.0); Potassium 5.1 mmol/L (3.5-5.1); Sodium 138 mmol/L (138-145); T. Carbon Dioxide 20.1 mmol/L (22.0-28.0); vO2 Saturation-calc 71.9 % (60.0-85.0)
[2020-06-21 13:52] LABS: SARS-CoV-2 MS2 Positive; SARS-CoV-2 N Gene Negative; SARS-CoV-2 S Gene Negative; SARS-CoV-2 by NAA Not Detected (NotDetected); SARS-CoV-2 orf1ab Negative
[2020-06-21] MEDS: PREGABALIN 25 MG PO SCH (13:59)
[2020-06-21] MEDS: HumaLOG 300 UNITS/3 ML VIAL SC SCH (17:58)
[2020-06-21 19:23] LABS: Anion Gap 13 mmol/L (10-20); BUN (Urea Nitrogen) 21 mg/dL (7.0-18.7); Calc. Creatinine Clearance 71 mL/min (70-130); Calcium 7.6 mg/dL (7.8-10.44); Carbon Dioxide 15 mmol/L (22-29); Chloride 114 mmol/L (98-107); Estimated GFR-MDRD 41; Glucose 173 mg/dL (70-105); Sodium 137 mmol/L (136-145)
[2020-06-21] MEDS: Pregabalin 25 MG CAP PO SCH (21:16)
[2020-06-21] MEDS: Montelukast Sodium 10 mg Tablet PO SCH (21:18)
[2020-06-22] MEDS: Sodium Chloride 0.9% 1,000 ML IV SCH (01:37)
[2020-06-22 05:32] LABS: Hemoglobin 6.7 g/dL (12.0-16.0); Mean Corpuscular HGB CONC 28.4 g/dL (32.0-36.0); Mean Corpuscular Hemoglobin 26.1 pg (27.0-31.0); Mean Corpuscular Volume 91.8 fL (78.0-98.0); Mean Platelet Volume 8.7 fL (7.4-10.4); Platelet Count 54 thou/uL (130-400); RBC Distribution Width 16.2 % (11.5-14.5); Red Blood Cell (RBC) Count 2.56 mill/uL (4.20-5.40); White Blood Cell (WBC) Count 1.8 thou/uL (4.8-10.8)
[2020-06-22 05:44] LABS: Anion Gap 13 mmol/L (10-20); BUN (Urea Nitrogen) 18 mg/dL (7.0-18.7); Calc. Creatinine Clearance 69 mL/min (70-130); Calcium 7.8 mg/dL (7.8-10.44); Carbon Dioxide 16 mmol/L (22-29); Chloride 114 mmol/L (98-107); Estimated GFR-MDRD 40; Glucose 172 mg/dL (70-105); Potassium 4.8 mmol/L (3.5-5.1); Sodium 138 mmol/L (136-145)
[2020-06-22 05:59] LABS: Anisocytosis SLIGHT = 6-15 cells (100X) (0-5/hpf); Eosinophils 2 % (0-10); Lymphocytes 26 % (21-51); MDiff Complete? YES; Monocytes 9 % (0-10); Neutrophil 63 % (42-75); Platelet Morphology Comment Appears Decreased
[2020-06-22 07:28] VITALS: BP 121/66; TEMP 98
[2020-06-22] MEDS: Famotidine 20 MG TAB PO SCH (08:41)
[2020-06-22] MEDS: traMADol HCl 50 MG TAB PO SCH (08:41)
[2020-06-22] MEDS: Pregabalin 25 MG CAP PO SCH (08:42)
[2020-06-22] MEDS: valACYclovir 500 MG TAB PO SCH (08:43)
[2020-06-22] MEDS: Folic Acid 1 MG TAB PO SCH (08:44)
[2020-06-22] MEDS: Saccharomyces boulardii 250 MG CAP PO SCH (08:44)
[2020-06-22] MEDS: HumaLOG 300 UNITS/3 ML VIAL SC PRN (08:46)
[2020-06-22] MEDS: HumaLOG 300 UNITS/3 ML VIAL SC SCH (08:47)
[2020-06-22] MEDS: Mometasone/Formoterol 200/5 60 PUFF INH SCH (11:18)
[2020-06-22] MEDS: Nystatin Cream 15 GM TUBE TOP SCH (11:22)
[2020-06-22 11:40] LABS: ALT (SGPT) 11 U/L (8-55); AST (SGOT) 11 U/L (5-34); Albumin 2.6 g/dL (3.5-5.0); Alkaline Phosphatase 51 U/L (40-110); Bilirubin, Direct 0.1 mg/dL (0.1-0.3); Bilirubin, Total 0.2 mg/dL (0.2-1.2); Protein, Total 5.1 g/dL (6.0-8.3)
--- NOTE | 2020-06-22 12:45 | CT ---
Exam: Soft tissue neck CT without contrast HISTORY: Left neck swelling. COMPARISON: 10/22/2019, 01/05/2017 FINDINGS: Visualized brain parenchyma is grossly unremarkable Orbits: Bilateral ocular lenses are appropriately located. Both globes are intact. Retrobulbar fat is preserved. Sinuses: There is markedly mucosal thickening involving the maxillary sinuses, ethmoid air cells. Mil d mucosal thickening of the sphenoid sinuses. Chronic changes of the mastoid air cells with sclerosis and decreased pneumatization is noted. Limited evaluation of the soft tissue neck structures due to lack of IV contrast. Aerodigestive tract appears to be patent. No mucosal abnormality. No obvious masses in the oral cavity. Midline fatty raphae of the tongue is preserved. Epiglottis is normal caliber. Preepiglottic fat is served. Symmetric attenuation of the submandibular glands. Appropriate attenuation of the thyroid gland. Peripherally calcified nodule in the right thyroid lobe is once again demonstrated. Multiple calcifications in the right parotid gland. There is fatty replacement and asymmetric decreas e in size of a left parotid gland.. Symmetric attenuation of the paraspinal muscles. No evidence of significant central canal stenosis or foraminal narrowing. Cervical spine vertebral chalino dy heights are maintained. No fracture. Upper mediastinum and lung apices do not demonstrate any acute abnormality There appear to be arthritic changes along the right sternal clavicular joint. Lymphadenopathy: Redemonstration of enlargement right level 2 lymph node measuring 1.7 x 1.3 cm. Ther e is a borderline enlarged left level 2 lymph node measuring 1.2 x 1.3 cm. Enlarged left level 5 lymph node measures 1.8 x 1.1 cm. Additional scattered enlarged soft tissue neck lymph nodes and bradly clavicular lymph nodes are noted. There is evidence of probable subpectoral arterial/axillary lymphadenopathy which is incompletely evaluated. The degree of lymphadenopathy appears to be similar to the examination from September 2019 when taking absence of IV contrast into consideration. IMPRESSION: 1. Persistent lymphadenopathy involving the soft tissues of the neck, upper axilla and periclavicular region. Correlate clinically for infectious, inflammatory or neoplastic process. Absence of contrast limits evaluation. 2. Stable calcified nodule in the right thyroid lobe. Nonemergent thyroid ultrasound recommended. 3. Stable asymmetric mild atrophy of the left parotid gland with nonspecific punctate calcifications in the right parotid gland. 4. Extensive paranasal sinus mucosal thickening.
[2020-06-22 16:11] LABS: Reticulocyte Count 1.5 % (0.5-1.5)
== END 2020-06-22 13:20 | disposition short-term general hospital (02) | DRG 638 ==
LOC: BURERS 19:14 → BURMED 22:34 → OBSVTOIN 06-20 12:30
PROVIDERS: ADMIT Family Medicine; ATTEND Family Medicine
DX: E10.65 Type 1 diabetes mellitus with hyperglycemia (principal); N17.9 Acute kidney failure, unspecified; N30.01 Acute cystitis with hematuria; J45.909 Unspecified asthma, uncomplicated; N18.3 Chronic kidney disease, stage 3 (moderate); I12.9 Hypertensive chronic kidney disease with stage 1 through stage 4 chronic kidney disease, or unspecified chronic kidney disease; G43.829 Menstrual migraine, not intractable, without status migrainosus; E86.0 Dehydration; D63.1 Anemia in chronic kidney disease; K21.9 Gastro-esophageal reflux disease without esophagitis; E66.9 Obesity, unspecified; G89.29 Other chronic pain; E10.40 Type 1 diabetes mellitus with diabetic neuropathy, unspecified; Z88.1 Allergy status to other antibiotic agents; Z88.0 Allergy status to penicillin; Z88.2 Allergy status to sulfonamides; Z79.4 Long term (current) use of insulin; Z68.29 Body mass index [BMI] 29.0-29.9, adult
CPT/HCPCS: 36415; 36416; 70490; 71045; 74176; 80048; 80053; 80076; 80306; 81003; 81015; 81025; 82010; 82330; 82803; 83605; 83615; 83690; 83880; 84484; 85025; 85046; 87040; 87086; 87635; 93005; 94664; 96360; 96361; J1815; J2270; J7620; U0003

== ENCOUNTER 2020-08-09 18:14 | Emergency (ER) | payer OTHER ==
[2020-08-09 19:16] LABS: Anion Gap 17 mmol/L (10-20); BUN (Urea Nitrogen) 20 mg/dL (7.0-18.7); Calc. Creatinine Clearance 0 mL/min (70-130); Carbon Dioxide 21 mmol/L (22-29); Chloride 104 mmol/L (98-107); Potassium 4.6 mmol/L (3.5-5.1); Sodium 137 mmol/L (136-145)
[2020-08-09 19:17] LABS: ALT (SGPT) Less than 7 U/L (8-55); AST (SGOT) 10 U/L (5-34); Albumin 3.8 g/dL (3.5-5.0); Alkaline Phosphatase 57 U/L (40-110); Bilirubin, Total 1.4 mg/dL (0.2-1.2); Calcium 8.9 mg/dL (7.8-10.44); Globulin 2.5 g/dL (2.4-3.5); Glucose 221 mg/dL (70-105); Lipase 23 U/L (8-78); Protein, Total 6.3 g/dL (6.0-8.3)
[2020-08-09 19:26] LABS: Anisocytosis SLIGHT = 6-15 cells (100X) (0-5/hpf); Band 4 % (5-11); Hemoglobin 8.4 g/dL (12.0-16.0); Lymphocytes 36 % (21-51); MDiff Complete? YES; Mean Corpuscular HGB CONC 29.1 g/dL (32.0-36.0); Mean Corpuscular Hemoglobin 27.3 pg (27.0-31.0); Mean Corpuscular Volume 93.8 fL (78.0-98.0); Mean Platelet Volume 10.1 fL (7.4-10.4); Monocytes 9 % (0-10); Neutrophil 48 % (42-75); Ovalocytes SLIGHT = 2-5 cells (100X) (0-1/hpf); Platelet Count 41 thou/uL (130-400); Platelet Morphology Comment HX OF DECREASED PLATELETS; RBC Distribution Width 15.7 % (11.5-14.5); Reactive Lymphocytes 2 % (0-10); Red Blood Cell (RBC) Count 3.09 mill/uL (4.20-5.40); Tear Drops SLIGHT = 2-5 cells (100X) (0-1/hpf); White Blood Cell (WBC) Count 3.3 thou/uL (4.8-10.8)
[2020-08-09] MEDS ORDERED: Ventolin HFA Inhaler 60 PUFF INHALER ONE (19:34)
[2020-08-09 19:39] LABS: Bilirubin Small (Negative); Blood, Urine Moderate (Negative); Clarity Clear (Clear); Glucose, Urine (Dipstick) Negative (Negative); Ketone, Urine Negative (Negative); Leukocyte Trace (Negative); Nitrite Negative (Negative); Protein, Urine (Dipstick) > or equal to 300 mg/dL (Neg-Trace); Urobilinogen 0.2 mg/dL (Less than 2)
[2020-08-09 19:42] LABS: Bacteria/HPF Rare-Few HPF (None Seen); Pregnancy Test - Urine (BHCG) Negative (Negative); Pregu Control Background? CLEAR/WHITE (CLR/WHITE); Pregu Control Bar Appear? YES (CONTROL BAR); Squamous Epithelial 0-3 HPF (0-3)
[2020-08-09] MEDS ORDERED: Acetaminophen 500 MG TAB ONE (19:43)
--- NOTE | 2020-08-09 20:09 | RAD ---
PORTABLE CHEST: 08/09/20 An AP portable film at 1902 is compared with an 06/24/20 study. Patchy infiltrate is seen in the left l vivi to the left of the aorta and pulmonary artery. This is a new finding since last month's study. P neumonia is presumed. COVID should be included in the differential and tested for given the patchy ap pearance. There are no effusions. The trachea is midline. The heart is normal in size. IMPRESSION: Patchy left lung infiltrate suggestive of pneumonia. See above. Code T POS: HOME
== END 2020-08-09 21:37 | disposition short-term general hospital (02) ==
LOC: BURERS 18:14
DX: J06.9 Acute upper respiratory infection, unspecified (principal); J98.01 Acute bronchospasm; Z20.828 Contact with and (suspected) exposure to other viral communicable diseases; E11.9 Type 2 diabetes mellitus without complications; D64.9 Anemia, unspecified
CPT/HCPCS: 36415; 71045; 80053; 81003; 81015; 81025; 83605; 83690; 83880; 84443; 84484; 85025; 85379; 87040; 87086; 94760; 96365; 96367; J1956; J3370

== ENCOUNTER 2020-09-26 16:47 | Emergency (ER) | payer OTHER ==
[2020-09-26 17:38] LABS: ALT (SGPT) 9 U/L (8-55); AST (SGOT) 11 U/L (5-34); Albumin 3.7 g/dL (3.5-5.0); Alkaline Phosphatase 78 U/L (40-110); Anion Gap 15 mmol/L (10-20); BUN (Urea Nitrogen) 21 mg/dL (7.0-18.7); Bilirubin, Total 0.3 mg/dL (0.2-1.2); Calc. Creatinine Clearance 0 mL/min (70-130); Calcium 8.4 mg/dL (7.8-10.44); Carbon Dioxide 19 mmol/L (22-29); Chloride 110 mmol/L (98-107); Estimated GFR-MDRD 40; Glucose 257 mg/dL (70-105); Potassium 4.1 mmol/L (3.5-5.1); Protein, Total 5.7 g/dL (6.0-8.3); Sodium 140 mmol/L (136-145)
[2020-09-26 17:46] LABS: Blast 2 % (0-0); Eosinophils 1 % (0-10); Lymphocytes 27 % (21-51); MDiff Complete? YES; Mean Corpuscular HGB CONC 31.2 g/dL (32.0-36.0); Mean Corpuscular Hemoglobin 27.9 pg (27.0-31.0); Mean Corpuscular Volume 89.6 fL (78.0-98.0); Mean Platelet Volume 8.1 fL (7.4-10.4); Monocytes 5 % (0-10); Neutrophil 61 % (42-75); Platelet Count 51 thou/uL (130-400); Platelet Morphology Comment Appears Decreased; Red Blood Cell (RBC) Count 3.22 mill/uL (4.20-5.40); White Blood Cell (WBC) Count 2.7 thou/uL (4.8-10.8)
[2020-09-26] MEDS ORDERED: predniSONE 20 MG TAB ONE (18:02)
[2020-09-26] MEDS ORDERED: Insulin Regular 300 UNITS/3 ML VIAL ONE (18:02)
[2020-09-26] MEDS ORDERED: Acetaminophen 325 MG TAB ONE (18:02)
--- NOTE | 2020-09-26 20:39 | RAD ---
PORTABLE CHEST: 09/26/20 An AP portable film at 1707 is compared with a 08/09/20 study. The heart is normal in size. There are a few patchy areas in the right lung base. A linear area in th e left mid lung is probably scarring and could be seen on the prior exam. The depth of inspiration is shallow which does crowd some of the lung markings. There may be another patchy area in the right tony ng apex, but this is less certain due to overlapping structures. There are no large effusions. IMPRESSION: Shallow breath with some crowding of markings. Possible patchy infiltrate in the right upper lobe and right base. Code T POS: HOME
== END 2020-09-26 18:20 | disposition home or self-care (01) ==
LOC: BURERS 16:47
DX: J45.901 Unspecified asthma with (acute) exacerbation (principal); D64.9 Anemia, unspecified; E11.9 Type 2 diabetes mellitus without complications
CPT/HCPCS: 36415; 71045; 80053; 85025; 96374; J1815; J7512; J7620

== ENCOUNTER 2020-10-03 18:39 | Emergency (ER) | payer OTHER ==
[2020-10-03] MEDS ORDERED: methylPREDNISolone Sod Succ/PF 125 MG/2 ML VIAL ONE (19:37)
[2020-10-03] MEDS ORDERED: Magnesium 2 GM/50 ML BAG (IN WATER) ONE (19:37)
[2020-10-03 20:06] LABS: BHCG - Serum POSITIVE (NEGATIVE); Pregs Control Background? CLEAR/WHITE (CLR/WHITE); Pregs Control Bar Appear? YES (CONTROL BAR)
--- NOTE | 2020-10-03 20:11 | CT ---
CT ABDOMEN AND PELVIS WITHOUT CONTRAST: 10/03/20 Comparison is made with the 08/10/20 study. The lung bases are clear and there is no effusions. The sp ac is large, though comparable to the prior study. It is about 16 cm in AP dimension. No space occu pying disease was seen in the liver or spleen. No stones were seen in the gallbladder. The adrenal gl ands and right kidney appear normal. Chronic hydronephrosis and cortical thinning are present in the left kidney as on the prior scans. The aorta is normal in caliber. Para-aortic adenopathy is present with some nodes up to 2 cm in size. This was present before. A few of these nodes actually appear slightly larger than they were on the 08/10 study. Regarding the bowel, no distended bowel, inflammatory changes or bowel well thickening were appreciated. No free air or f ree fluid was present. CT of the pelvis shows no pelvic masses, fluid collections or inflammatory changes. I was not impress ed by an excess of adenopathy here. Previously there is a question of a left ovarian cyst but this ar ea was unremarkable today. IMPRESSION: 1. No cause apparent for the patient's right upper quadrant pain. 2. Splenomegaly. 3. Para-aortic adenopathy, not new, but a few of the nodes may be slightly larger than previousl y. The etiology of the adenopathy and splenic enlargement is not known. 4. Left hydronephrosis with cortical thinning, little different than before. Preliminary report called to Dr. Sung at 1953 on 10/03/20. POS: HOME
--- NOTE | 2020-10-03 20:14 | RAD ---
CHEST TWO VIEWS: 10/03/20 Comparison is made with the 09/26 study. The prior film was taken in partial expiration but there was some question of possible patchy areas in the right base and left mid lung. The patchy right basilar area is not as appreciated today and the CT scan that was done earlier cut through this region and d id not show any substantial infiltrate. Prior CT scans have shown some nodular parenchymal densities in the mid to upper lobes. There is still some slight linear streaking in the left mid lung zone, but is not much different than last week's study. There are no effusions. The heart size is normal. Ther e is no congestion of vessels. IMPRESSION: No significant change since last week. POS: HOME
[2020-10-03 20:16] LABS: #Eosinphils 0.2 thou/uL (0.0-0.7); #Lymphocytes 0.9 thou/uL (1.20-3.40); #Monocytes 0.2 thou/uL (0.11-0.59); #Neutrophils 1.7 thou/uL (1.40-6.50); %Basophils 0.9 % (0.0-1.0); %Eosinophils 6.2 % (0.0-10.0); %Monocytes 7.3 % (0.0-10.0); %Neutrophils 55.6 % (42.0-75.0); Mean Corpuscular HGB CONC 31.2 g/dL (32.0-36.0); Mean Corpuscular Volume 89.6 fL (78.0-98.0); Platelet Count 72 thou/uL (130-400); RBC Distribution Width 15.2 % (11.5-14.5); Red Blood Cell (RBC) Count 3.56 mill/uL (4.20-5.40); White Blood Cell (WBC) Count 3.1 thou/uL (4.8-10.8)
[2020-10-03 20:17] LABS: MDiff Complete? YES; Platelet Morphology Comment Appears Decreased
[2020-10-03 20:21] LABS: ALT (SGPT) 10 U/L (8-55); AST (SGOT) 11 U/L (5-34); Albumin 3.9 g/dL (3.5-5.0); Alkaline Phosphatase 76 U/L (40-110); Anion Gap 16 mmol/L (10-20); BUN (Urea Nitrogen) 22 mg/dL (7.0-18.7); Bilirubin, Total 0.4 mg/dL (0.2-1.2); Calc. Creatinine Clearance 0 mL/min (70-130); Calcium 9.4 mg/dL (7.8-10.44); Carbon Dioxide 19 mmol/L (22-29); Chloride 109 mmol/L (98-107); Estimated GFR-MDRD 38; Globulin 2.1 g/dL (2.4-3.5); Glucose 137 mg/dL (70-105); Lipase 41 U/L (8-78); Potassium 4.2 mmol/L (3.5-5.1); Sodium 140 mmol/L (136-145)
[2020-10-03 21:22] LABS: Bilirubin Negative (Negative); Blood, Urine Moderate (Negative); Glucose, Urine (Dipstick) Negative (Negative); Ketone, Urine Negative (Negative); Leukocyte Trace (Negative); Nitrite Negative (Negative); Protein, Urine (Dipstick) 100 mg/dL (Neg-Trace); Urobilinogen 0.2 mg/dL (Less than 2); pH, Urine 5.5 (5.0-9.0)
[2020-10-03 21:23] LABS: Clarity Hazy (Clear)
[2020-10-03 21:30] LABS: Bacteria/HPF 1+ HPF (None Seen); RBC/HPF 0-3 HPF (0-3); Squamous Epithelial 0-3 HPF (0-3); WBC/HPF 0-3 HPF (0-3)
[2020-10-03 21:57] LABS: Pregnancy Test - Urine (BHCG) Negative (Negative); Pregu Control Background? CLEAR/WHITE (CLR/WHITE); Pregu Control Bar Appear? YES (CONTROL BAR)
== END 2020-10-03 22:47 | disposition home or self-care (01) ==
LOC: BURERS 18:39
DX: R10.11 Right upper quadrant pain (principal); J45.901 Unspecified asthma with (acute) exacerbation; E11.9 Type 2 diabetes mellitus without complications; F79 Unspecified intellectual disabilities
CPT/HCPCS: 36415; 71046; 74176; 80053; 81003; 81015; 81025; 83605; 83690; 83880; 84702; 84703; 85025; 87040; 96365; 96366; 96375; J2930; J3475; J7620

== ENCOUNTER 2020-10-07 18:11 | Emergency (ER) | payer OTHER ==
[2020-10-07 19:35] LABS: ALT (SGPT) 13 U/L (8-55); AST (SGOT) 10 U/L (5-34); Albumin 3.6 g/dL (3.5-5.0); Alkaline Phosphatase 76 U/L (40-110); Anion Gap 17 mmol/L (10-20); BUN (Urea Nitrogen) 23 mg/dL (7.0-18.7); Bilirubin, Total 0.6 mg/dL (0.2-1.2); Calc. Creatinine Clearance 0 mL/min (70-130); Calcium 8.5 mg/dL (7.8-10.44); Carbon Dioxide 21 mmol/L (22-29); Chloride 108 mmol/L (98-107); Estimated GFR-MDRD 38; Globulin 2.1 g/dL (2.4-3.5); Glucose 249 mg/dL (70-105); Potassium 4.5 mmol/L (3.5-5.1); Protein, Total 5.7 g/dL (6.0-8.3); Sodium 141 mmol/L (136-145)
[2020-10-07 19:48] LABS: #Eosinphils 0.1 thou/uL (0.0-0.7); #Lymphocytes 0.9 thou/uL (1.20-3.40); #Monocytes 0.3 thou/uL (0.11-0.59); #Neutrophils 2.5 thou/uL (1.40-6.50); %Basophils 0.7 % (0.0-1.0); %Eosinophils 3.7 % (0.0-10.0); %Lymphocytes 23.2 % (21.0-51.0); %Monocytes 8.4 % (0.0-10.0); Hemoglobin 9.8 g/dL (12.0-16.0); Large Platelets SLIGHT; MDiff Complete? YES; Mean Corpuscular HGB CONC 31.1 g/dL (32.0-36.0); Mean Corpuscular Volume 90.1 fL (78.0-98.0); Mean Platelet Volume 10.5 fL (7.4-10.4); Platelet Count 67 thou/uL (130-400); Platelet Morphology Comment Appears Decreased; RBC Distribution Width 15.2 % (11.5-14.5); Red Blood Cell (RBC) Count 3.52 mill/uL (4.20-5.40)
[2020-10-07] MEDS ORDERED: Milk Of Magnesia 30 ML UDCUP ONE (20:08)
[2020-10-07] MEDS ORDERED: Acetaminophen 500 MG TAB ONE (20:08)
[2020-10-07] MEDS ORDERED: Lidocaine Viscous Sol 2% 15 ml UD Cup ONE (20:08)
[2020-10-07] MEDS ORDERED: Mag-Al Plus 1200 MG/1200 MG/120 MG/30 ML UDCUP PO SCH (20:45)
--- NOTE | 2020-10-07 21:59 | RAD ---
PORTABLE CHEST: Date: 10-07-2020 An AP portable film at 1924 is compared with an 10-03-2020 study. FINDINGS: Changes in the interval are minimal. There are a few linear streaks in the left midlung as before. In general there is a mild interstitial haziness to the lungs. In part, this is due to a shallow breath , but recent scan suggests it is also due to interstitial infiltrate as well. There are no big effusi ons and no lobar consolidations. The heart size remains normal. IMPRESSION: Allowing for difference in inspiration, there is probably little change in the appearance of the ches t over the 4 day interval. POS: HOME
== END 2020-10-07 20:42 | disposition home or self-care (01) ==
LOC: BURERS 18:11
DX: O99.511 Diseases of the respiratory system complicating pregnancy, first trimester (principal); J45.901 Unspecified asthma with (acute) exacerbation; O99.891 Other specified diseases and conditions complicating pregnancy; H60.502 Unspecified acute noninfective otitis externa, left ear; O24.111 Pre-existing type 2 diabetes mellitus, in pregnancy, first trimester; E11.9 Type 2 diabetes mellitus without complications; O99.011 Anemia complicating pregnancy, first trimester
CPT/HCPCS: 36415; 71045; 80053; 83880; 84484; 84702; 85025; 93005; J7620

== ENCOUNTER 2020-10-16 16:12 | Emergency (ER) | payer OTHER ==
[2020-10-16 17:05] LABS: #Eosinphils 0.2 thou/uL (0.0-0.7); #Lymphocytes 0.8 thou/uL (1.20-3.40); #Monocytes 0.3 thou/uL (0.11-0.59); #Neutrophils 2.6 thou/uL (1.40-6.50); %Basophils 0.7 % (0.0-1.0); %Eosinophils 4.5 % (0.0-10.0); %Lymphocytes 21.5 % (21.0-51.0); %Monocytes 7.5 % (0.0-10.0); %Neutrophils 65.8 % (42.0-75.0); Hemoglobin 9.1 g/dL (12.0-16.0); Mean Corpuscular HGB CONC 31.9 g/dL (32.0-36.0); Mean Corpuscular Hemoglobin 28.5 pg (27.0-31.0); Mean Corpuscular Volume 89.3 fL (78.0-98.0); Mean Platelet Volume 8.5 fL (7.4-10.4); Platelet Count 50 thou/uL (130-400); RBC Distribution Width 15.3 % (11.5-14.5); Red Blood Cell (RBC) Count 3.21 mill/uL (4.20-5.40); White Blood Cell (WBC) Count 3.9 thou/uL (4.8-10.8)
[2020-10-16 17:06] LABS: MDiff Complete? YES
[2020-10-16 17:19] LABS: ALT (SGPT) 17 U/L (8-55); AST (SGOT) 15 U/L (5-34); Albumin 3.7 g/dL (3.5-5.0); Alkaline Phosphatase 63 U/L (40-110); Anion Gap 14 mmol/L (10-20); BUN (Urea Nitrogen) 27 mg/dL (7.0-18.7); Bilirubin, Total 0.4 mg/dL (0.2-1.2); Calc. Creatinine Clearance 0 mL/min (70-130); Calcium 9.2 mg/dL (7.8-10.44); Carbon Dioxide 23 mmol/L (22-29); Chloride 106 mmol/L (98-107); Estimated GFR-MDRD 35; Globulin 2.1 g/dL (2.4-3.5); Glucose 156 mg/dL (70-105); Lipase 60 U/L (8-78); Potassium 4.1 mmol/L (3.5-5.1); Protein, Total 5.8 g/dL (6.0-8.3); Sodium 139 mmol/L (136-145)
[2020-10-16 18:09] LABS: Bilirubin Negative (Negative); Blood, Urine Small (Negative); Clarity Cloudy (Clear); Glucose, Urine (Dipstick) Negative (Negative); Ketone, Urine Negative (Negative); Leukocyte Small (Negative); Nitrite Negative (Negative); Protein, Urine (Dipstick) 100 mg/dL (Neg-Trace); Urobilinogen 0.2 mg/dL (Less than 2)
[2020-10-16 18:12] LABS: Bacteria/HPF 2+ HPF (None Seen); Mucous/LPF 2+ LPF (<2+); RBC/HPF 0-3 HPF (0-3)
[2020-10-16] MEDS ORDERED: Metoclopramide HCl 10 MG/2 ML VIAL ONE (19:52)
== END 2020-10-16 20:57 | disposition short-term general hospital (02) ==
LOC: BURERS 16:12
DX: R10.84 Generalized abdominal pain (principal)
CPT/HCPCS: 36415; 80053; 81003; 81015; 83605; 83690; 84702; 85025; 93005; 96365; J2765

== ENCOUNTER 2020-11-06 13:05 | Emergency (ER) | payer OTHER ==
[2020-11-06] MEDS ORDERED: traMADol HCl 50 MG TAB ONE (13:43)
[2020-11-06] MEDS ORDERED: Ibuprofen 800 MG TAB ONE (13:44)
== END 2020-11-06 13:46 | disposition home or self-care (01) ==
LOC: BURERS 13:05
DX: K08.89 Other specified disorders of teeth and supporting structures (principal); L29.9 Pruritus, unspecified; D64.9 Anemia, unspecified; E11.9 Type 2 diabetes mellitus without complications; Z79.4 Long term (current) use of insulin
CPT/HCPCS: 99283

== ENCOUNTER 2021-01-12 18:49 | Emergency (ER) | payer OTHER ==
[2021-01-12 20:49] LABS: ALT (SGPT) 15 U/L (8-55); AST (SGOT) 17 U/L (5-34); Albumin 3.7 g/dL (3.5-5.0); Alkaline Phosphatase 64 U/L (40-110); Anion Gap 17 mmol/L (10-20); BUN (Urea Nitrogen) 22 mg/dL (7.0-18.7); Calc. Creatinine Clearance 0 mL/min (70-130); Calcium 9.4 mg/dL (7.8-10.44); Carbon Dioxide 19 mmol/L (22-29); Chloride 104 mmol/L (98-107); Globulin 2.4 g/dL (2.4-3.5); Glucose 244 mg/dL (70-105); Potassium 4.7 mmol/L (3.5-5.1); Protein, Total 6.1 g/dL (6.0-8.3); Sodium 135 mmol/L (136-145)
--- NOTE | 2021-01-12 20:49 | RAD ---
PORTABLE CHEST: 01/12/21 An AP portable film at 1924 is compared with an 10/07/20 study. There is a definite right upper lobe infiltrate medially. There are a few other areas, left lower lobe near the costophrenic angle and the right lower chest that may have some developing infiltrates in them too, but this is less certain. T he heart size is normal. IMPRESSION: There is at least a right upper lobe infiltrate, and there may be subtle ones elsewhere. An infectiou s etiology seems probable. COVID should be included in the diagnosis. Follow-up films to complete res olution are also recommended to show clearing of the right upper lobe finding. Code T POS: HOME
[2021-01-12 20:52] LABS: Mean Corpuscular HGB CONC 32.3 g/dL (32.0-36.0); Mean Corpuscular Hemoglobin 29.8 pg (27.0-31.0); Mean Corpuscular Volume 92.5 fL (78.0-98.0); RBC Distribution Width 13.9 % (11.5-14.5); Red Blood Cell (RBC) Count 3.37 mill/uL (4.20-5.40); White Blood Cell (WBC) Count 6.1 thou/uL (4.8-10.8)
[2021-01-12] MEDS ORDERED: Acetaminophen 325 MG TAB ONE (20:54)
[2021-01-12 20:55] LABS: #Basophils 0.1 thou/uL (0.0-0.2); #Lymphocytes 0.9 thou/uL (1.20-3.40); #Monocytes 0.5 thou/uL (0.11-0.59); #Neutrophils 4.5 thou/uL (1.40-6.50); %Eosinophils 0.1 % (0.0-10.0); %Lymphocytes 14.8 % (21.0-51.0); %Monocytes 8.2 % (0.0-10.0); Hypochromia SLIGHT = 6-15 cells (100X) (0-5/hpf); Large Platelets SLIGHT; MDiff Complete? YES; Platelet Morphology Comment Appears Decreased
[2021-01-12 20:59] LABS: Platelet Count 45 thou/uL (130-400)
[2021-01-12 22:12] LABS: Bilirubin Negative (Negative); Blood, Urine Moderate (Negative); Clarity Slightly Cloudy (Clear); Glucose, Urine (Dipstick) 250 mg/dL (Negative); Ketone, Urine Negative (Negative); Leukocyte Negative (Negative); Nitrite Negative (Negative); Protein, Urine (Dipstick) > or equal to 300 mg/dL (Neg-Trace); Urobilinogen 0.2 mg/dL (Less than 2)
[2021-01-12 22:24] LABS: Bacteria/HPF 1+ HPF (None Seen)
[2021-01-12 22:38] LABS: Pregnancy Test - Urine (BHCG) Negative (Negative); Pregu Control Background? CLEAR/WHITE (CLR/WHITE); Pregu Control Bar Appear? YES (CONTROL BAR)
[2021-01-13 00:10] LABS: SARS-CoV-2 NAA Rapid Test Not Detected (NotDetected)
--- NOTE | 2021-01-13 09:50 | CT ---
PRELIMINARY REPORT/[facility]/EMERGENCY AFTER HOURS PROCEDURE: EXAM: CT Chest Without Intravenous Contrast. CLINICAL HISTORY: Chest pain, pain in shoulders, fever TECHNIQUE: Axial computed tomography images of the chest without intravenous contrast. COMPARISON: CT - CT CHEST WO CON - 11/14/2019 01:21 PM [employer] FINDINGS: LUNGS: Solid consolidation in the posterior aspect of the right upper lobe. Minimal tree-in-bud nodul arity at the medial posterior aspect of the left upper lobe. PLEURAL SPACES: No pleural effusion. No pneumothorax. HEART AND MEDIASTINUM: Increased number of small mediastinal lymph nodes. LYMPH NODES: No lymphadenopathy. CHEST WALL AND UPPER ABDOMEN: The upper abdominal solid organs are unremarkable. The chest wall is un remarkable. BONES: No acute osseous abnormality. IMPRESSION: Solid consolidation in the posterior aspect of the right upper lobe. Minimal tree-in-bud nodularity at the medial posterior aspect of the left upper lobe. Findings likely represent pneumonia , however follow-up to resolution of the right upper lobe consolidation is recommended in order to ex clude underlying neoplasm. ELECTRONICALLY SIGNED BY: Carla Toledo MD Jan 13, 2021 12:26:40 AM WOR[employer] LANG[employer]AGE [employer] FINAL REPORT CT OF CHEST PERFORMED WITHOUT CONTRAST ENHANCEMENT: HISTORY: Fever and cough. COMPARISON: A CT of the chest performed 08/10/2020. FINDINGS: There is a posterior segment right upper lobe pneumonic-appearing area of consolidation. There is so me more patchy more linear change in the superior segment of th left lower lobe. Mediastinal nodes are prominent but similar to the previous study. Visualized liver parenchyma is unremarkable. The spleen appears enlarged and is incompletely visuali zed. IMPRESSION: 1. Right upper lobe pneumonic infiltrate with some minimal parenchymal changes in the left mid lung field more in the superior segment of the left lower lobe. 2. Persistent mediastinal adenopathy. This is similar appearance to the previous exam. 3. Splenomegaly. 4. This report is in agreement with the temporary report issued by [facility]. POS: OFF
== END 2021-01-13 03:20 | disposition short-term general hospital (02) ==
LOC: BURERS 18:49
DX: J18.9 Pneumonia, unspecified organism (principal); Z20.822 Contact with and (suspected) exposure to COVID-19; E11.9 Type 2 diabetes mellitus without complications; D50.9 Iron deficiency anemia, unspecified; J45.909 Unspecified asthma, uncomplicated; Z79.4 Long term (current) use of insulin
CPT/HCPCS: 0241U; 36415; 71045; 71250; 80053; 81003; 81015; 81025; 83605; 83880; 84484; 84702; 85025; 87040; 87086; 87804; 93005

== ENCOUNTER 2021-01-17 12:46 | Emergency (ER) | payer OTHER ==
[2021-01-17 13:17] LABS: #Lymphocytes 0.6 thou/uL (1.20-3.40); #Monocytes 0.2 thou/uL (0.11-0.59); #Neutrophils 1.3 thou/uL (1.40-6.50); %Basophils 1.1 % (0.0-1.0); %Eosinophils 1.4 % (0.0-10.0); %Lymphocytes 27.9 % (21.0-51.0); %Monocytes 7.6 % (0.0-10.0); Hemoglobin 10.1 g/dL (12.0-16.0); Mean Corpuscular Hemoglobin 29.3 pg (27.0-31.0); Mean Corpuscular Volume 94.7 fL (78.0-98.0); Mean Platelet Volume 7.7 fL (7.4-10.4); Platelet Count 63 thou/uL (130-400); RBC Distribution Width 14.8 % (11.5-14.5); Red Blood Cell (RBC) Count 3.43 mill/uL (4.20-5.40); White Blood Cell (WBC) Count 2.1 thou/uL (4.8-10.8)
[2021-01-17 13:24] LABS: MDiff Complete? YES
[2021-01-17 13:32] LABS: ALT (SGPT) 14 U/L (8-55); AST (SGOT) 16 U/L (5-34); Albumin 3.9 g/dL (3.5-5.0); Alkaline Phosphatase 66 U/L (40-110); Anion Gap 16 mmol/L (10-20); BUN (Urea Nitrogen) 28 mg/dL (7.0-18.7); Bilirubin, Total 0.6 mg/dL (0.2-1.2); Calc. Creatinine Clearance 0 mL/min (70-130); Calcium 9.7 mg/dL (7.8-10.44); Carbon Dioxide 21 mmol/L (22-29); Chloride 106 mmol/L (98-107); Globulin 2.8 g/dL (2.4-3.5); Glucose 370 mg/dL (70-105); Potassium 5.2 mmol/L (3.5-5.1); Protein, Total 6.7 g/dL (6.0-8.3); Sodium 138 mmol/L (136-145)
[2021-01-17] MEDS ORDERED: Acetaminophen 500 MG TAB ONE (14:06)
[2021-01-17] MEDS ORDERED: Insulin Regular 300 UNITS/3 ML VIAL ONE (14:06)
--- NOTE | 2021-01-17 17:36 | RAD ---
PORTABLE CHEST: 01/17/21 An AP portable film at 1326 is compared with a 01/12/21 study. There has been substantial improvement in the right upper lobe infiltrate in the interval. There is s till some thickening to the right of the lower trachea. I do believe there is some residual here. The lungs otherwise showed no focal finding. There is no vascular congestion or edema. No pleural effusi ons are seen. The heart size remains normal. IMPRESSION: 1. Improving right upper lobe pneumonia. 2. Still some thickening of soft tissues in the lower right paratracheal region. I would recomme nd fully treating the patient and then perhaps doing a follow-up chest x-ray 2 to 3 weeks following t reatment. She may ultimately need a follow-up CT of the chest. Code T POS: HOME
== END 2021-01-17 15:43 | disposition home or self-care (01) ==
LOC: BURERS 12:46
DX: E86.0 Dehydration (principal); R07.89 Other chest pain; E11.9 Type 2 diabetes mellitus without complications; D50.9 Iron deficiency anemia, unspecified; J45.909 Unspecified asthma, uncomplicated; Z79.51 Long term (current) use of inhaled steroids; Z79.899 Other long term (current) drug therapy
CPT/HCPCS: 71045; 80053; 83605; 84484; 85025; 93005; 96374; J1815

== ENCOUNTER 2021-02-25 12:02 | Emergency (ER) | payer OTHER ==
[2021-02-25 13:28] LABS: Hemoglobin 10.4 g/dL (12.0-16.0); Mean Corpuscular HGB CONC 30.9 g/dL (32.0-36.0); Mean Corpuscular Volume 90.6 fL (78.0-98.0); Mean Platelet Volume 9.8 fL (7.4-10.4); Platelet Count 54 thou/uL (130-400); RBC Distribution Width 14.7 % (11.5-14.5); Red Blood Cell (RBC) Count 3.71 mill/uL (4.20-5.40); White Blood Cell (WBC) Count 3.4 thou/uL (4.8-10.8)
[2021-02-25 13:34] LABS: BHCG - Serum Negative (NEGATIVE); Pregs Control Background? CLEAR/WHITE (CLR/WHITE); Pregs Control Bar Appear? YES (CONTROL BAR)
[2021-02-25 13:36] LABS: ALT (SGPT) 13 U/L (8-55); AST (SGOT) 16 U/L (5-34); Alkaline Phosphatase 58 U/L (40-110); Anion Gap 17 mmol/L (10-20); BUN (Urea Nitrogen) 25 mg/dL (7.0-18.7); Bilirubin, Total 0.5 mg/dL (0.2-1.2); Calc. Creatinine Clearance 0 mL/min (70-130); Calcium 9.2 mg/dL (7.8-10.44); Carbon Dioxide 21 mmol/L (22-29); Chloride 104 mmol/L (98-107); Globulin 2.1 g/dL (2.4-3.5); Glucose 350 mg/dL (70-105); Potassium 5.1 mmol/L (3.5-5.1); Protein, Total 6.1 g/dL (6.0-8.3); Sodium 137 mmol/L (136-145)
[2021-02-25 13:50] LABS: Band 3 % (5-11); Lymphocytes 20 % (21-51); MDiff Complete? YES; Monocytes 13 % (0-10); Neutrophil 64 % (42-75); Platelet Morphology Comment Appears Decreased; RBC Morphology Normal
[2021-02-25] MEDS ORDERED: Vancomycin 1.5 GRAM/300 ML BAG ONE (14:35)
[2021-02-25 15:31] LABS: SARS-CoV-2 NAA Rapid Test Not Detected (NotDetected)
[2021-02-25] MEDS ORDERED: methylPREDNISolone Sod Succ/PF 125 MG/2 ML VIAL ONE (17:22)
== END 2021-02-25 21:45 | disposition short-term general hospital (02) ==
LOC: BURERS 12:02
DX: U07.1 COVID-19 (principal); J12.82 Pneumonia due to coronavirus disease 2019; E11.9 Type 2 diabetes mellitus without complications; D50.9 Iron deficiency anemia, unspecified; J45.909 Unspecified asthma, uncomplicated
CPT/HCPCS: 0240U; 36415; 71045; 80053; 83605; 83880; 84484; 84703; 85025; 85379; 87040; 87149; 93005; 96365; 96366; 96368; 96375; J1956; J2930; J3370; J7620

== ENCOUNTER 2021-03-27 13:41 | Emergency (ER) | payer OTHER ==
[2021-03-27 15:18] LABS: #Eosinphils 0.1 thou/uL (0.0-0.7); #Lymphocytes 0.8 thou/uL (1.20-3.40); #Monocytes 0.4 thou/uL (0.11-0.59); #Neutrophils 1.8 thou/uL (1.40-6.50); %Basophils 0.5 % (0.0-1.0); %Eosinophils 2.5 % (0.0-10.0); %Lymphocytes 25.7 % (21.0-51.0); %Monocytes 12.4 % (0.0-10.0); %Neutrophils 58.9 % (42.0-75.0); Hemoglobin 9.6 g/dL (12.0-16.0); Mean Corpuscular HGB CONC 31.1 g/dL (32.0-36.0); Mean Corpuscular Hemoglobin 27.5 pg (27.0-31.0); Mean Corpuscular Volume 88.7 fL (78.0-98.0); Mean Platelet Volume 7.9 fL (7.4-10.4); Platelet Count 67 thou/uL (130-400); RBC Distribution Width 15.3 % (11.5-14.5); Red Blood Cell (RBC) Count 3.49 mill/uL (4.20-5.40)
[2021-03-27 15:33] LABS: ALT (SGPT) 13 U/L (8-55); AST (SGOT) 11 U/L (5-34); Albumin 3.8 g/dL (3.5-5.0); Alkaline Phosphatase 64 U/L (40-110); Anion Gap 14 mmol/L (10-20); BUN (Urea Nitrogen) 28 mg/dL (7.0-18.7); Bilirubin, Total 0.5 mg/dL (0.2-1.2); Calc. Creatinine Clearance 0 mL/min (70-130); Calcium 9.6 mg/dL (7.8-10.44); Carbon Dioxide 20 mmol/L (22-29); Chloride 111 mmol/L (98-107); Globulin 2.4 g/dL (2.4-3.5); Glucose 156 mg/dL (70-105); Protein, Total 6.2 g/dL (6.0-8.3); Sodium 140 mmol/L (136-145)
[2021-03-27 15:48] LABS: MDiff Complete? YES; Platelet Morphology Comment Appears Decreased; Small Platelets SLIGHT
[2021-03-27] MEDS ORDERED: Levofloxacin 500 mg/D5W 100 ml Premix Bag ONE (20:55)
[2021-03-28 01:00] LABS: SARS-CoV-2 PCR by NAA Not Detected (NotDetected)
== END 2021-03-27 22:18 | disposition short-term general hospital (02) ==
LOC: BURERS 13:41
DX: J18.9 Pneumonia, unspecified organism (principal); D61.818 Other pancytopenia; E11.9 Type 2 diabetes mellitus without complications; J45.909 Unspecified asthma, uncomplicated; D50.9 Iron deficiency anemia, unspecified; R91.8 Other nonspecific abnormal finding of lung field; Z79.899 Other long term (current) drug therapy; Z79.4 Long term (current) use of insulin; Z20.822 Contact with and (suspected) exposure to COVID-19
CPT/HCPCS: 36415; 71046; 71250; 80053; 83605; 84484; 85025; 87635; 87804; 93005; 96365; J1956; U0003; U0005

== ENCOUNTER 2021-04-19 14:32 | Emergency (ER) | payer OTHER ==
[2021-04-19 15:41] LABS: ALT (SGPT) 16 U/L (8-55); AST (SGOT) 16 U/L (5-34); Albumin 3.3 g/dL (3.5-5.0); Alkaline Phosphatase 62 U/L (40-110); Anion Gap 13 mmol/L (10-20); BUN (Urea Nitrogen) 17 mg/dL (7.0-18.7); Bilirubin, Total 0.4 mg/dL (0.2-1.2); Calc. Creatinine Clearance 0 mL/min (70-130); Carbon Dioxide 21 mmol/L (22-29); Chloride 109 mmol/L (98-107); Globulin 2.9 g/dL (2.4-3.5); Glucose 285 mg/dL (70-105); Potassium 4.6 mmol/L (3.5-5.1); Protein, Total 6.2 g/dL (6.0-8.3); Sodium 138 mmol/L (136-145)
[2021-04-19 15:59] LABS: #Lymphocytes 0.7 thou/uL (1.20-3.40); #Monocytes 0.3 thou/uL (0.11-0.59); #Neutrophils 0.9 thou/uL (1.40-6.50); %Basophils 1.3 % (0.0-1.0); %Eosinophils 1.9 % (0.0-10.0); %Lymphocytes 35.4 % (21.0-51.0); %Monocytes 13.9 % (0.0-10.0); %Neutrophils 47.6 % (42.0-75.0); Hemoglobin 8.7 g/dL (12.0-16.0); Mean Corpuscular HGB CONC 31.6 g/dL (32.0-36.0); Mean Corpuscular Hemoglobin 27.8 pg (27.0-31.0); Mean Corpuscular Volume 87.7 fL (78.0-98.0); Mean Platelet Volume 9.5 fL (7.4-10.4); Platelet Count 49 thou/uL (130-400); RBC Distribution Width 16.1 % (11.5-14.5); Red Blood Cell (RBC) Count 3.14 mill/uL (4.20-5.40)
[2021-04-19 16:15] LABS: Platelet Morphology Comment Appears Decreased
== END 2021-04-19 17:10 | disposition home or self-care (01) ==
LOC: BURERS 14:32
DX: R06.02 Shortness of breath (principal); E11.9 Type 2 diabetes mellitus without complications; Z79.4 Long term (current) use of insulin; Z79.899 Other long term (current) drug therapy
CPT/HCPCS: 36415; 71045; 80053; 83880; 84484; 85025; 93005

== ENCOUNTER 2021-04-20 16:50 | Emergency (ER) | payer OTHER ==
[2021-04-20] MEDS ORDERED: Acetaminophen 500 MG TAB ONE (17:18)
[2021-04-20] MEDS ORDERED: Ondansetron ODT 4 MG TAB ONE (17:19)
== END 2021-04-20 17:44 | disposition home or self-care (01) ==
LOC: BURERS 16:50
DX: R51.9 Headache, unspecified (principal); R11.0 Nausea; E11.9 Type 2 diabetes mellitus without complications; Z79.899 Other long term (current) drug therapy; Z79.4 Long term (current) use of insulin
CPT/HCPCS: 36416; 99284; Q0162

== ENCOUNTER 2021-04-22 12:23 | Emergency (ER) | payer OTHER ==
[~2021-04-22 12:23] MED LIST: Iopamidol 370 76% 100 ML VIAL ONE
[2021-04-22] MEDS ORDERED: Metoclopramide HCl 10 MG/2 ML VIAL ONE (13:00)
[2021-04-22] MEDS ORDERED: Dexamethasone 10 MG/ML VIAL ONE (13:00)
[2021-04-22] MEDS ORDERED: diphenhydrAMINE 50 MG/ML VIAL ONE (13:00)
[2021-04-22] MEDS ORDERED: cefTRIAXone\\ROCEPHIN 2 GM VIAL ONE (13:02)
[2021-04-22] MEDS ORDERED: Azithromycin 500 MG VIAL ONE (13:03)
[2021-04-22] MEDS ORDERED: Sodium Chloride 0.9% 100 ML ONE (13:04)
[2021-04-22 13:29] LABS: Hemoglobin 9.8 g/dL (12.0-16.0); Mean Corpuscular HGB CONC 30.6 g/dL (32.0-36.0); Mean Corpuscular Hemoglobin 27.2 pg (27.0-31.0); Mean Corpuscular Volume 88.8 fL (78.0-98.0); Platelet Count 72 thou/uL (130-400); Red Blood Cell (RBC) Count 3.59 mill/uL (4.20-5.40); White Blood Cell (WBC) Count 3.3 thou/uL (4.8-10.8)
[2021-04-22 13:39] LABS: BHCG - Serum Negative (NEGATIVE); Pregs Control Background? CLEAR/WHITE (CLR/WHITE); Pregs Control Bar Appear? YES (CONTROL BAR)
[2021-04-22 13:49] LABS: Band 5 % (5-11); Lymphocytes 20 % (21-51); MDiff Complete? YES; Monocytes 14 % (0-10); Neutrophil 61 % (42-75); Platelet Morphology Comment Appears Decreased
[2021-04-22 13:50] LABS: ALT (SGPT) 13 U/L (8-55); AST (SGOT) 14 U/L (5-34); Albumin 3.5 g/dL (3.5-5.0); Alkaline Phosphatase 50 U/L (40-110); Anion Gap 16 mmol/L (10-20); BUN (Urea Nitrogen) 19 mg/dL (7.0-18.7); Bilirubin, Total 0.6 mg/dL (0.2-1.2); CK (CPK) 24 U/L (29-168); Calc. Creatinine Clearance 0 mL/min (70-130); Carbon Dioxide 20 mmol/L (22-29); Chloride 105 mmol/L (98-107); Globulin 3.2 g/dL (2.4-3.5); Glucose 203 mg/dL (70-105); Lipase 15 U/L (8-78); Magnesium 1.5 mg/dL (1.6-2.6); Potassium 4.9 mmol/L (3.5-5.1); Protein, Total 6.7 g/dL (6.0-8.3); Sodium 136 mmol/L (136-145)
[2021-04-22] MEDS ORDERED: Aspirin Chewable 81 MG TAB ONE (14:01)
[2021-04-22] MEDS ORDERED: Magnesium 2 GM/50 ML BAG (IN WATER) ONE (14:01)
[2021-04-22 14:06] LABS: CKMB 0.8 ng/mL (0-6.6)
[2021-04-22 14:56] LABS: SARS-CoV-2 NAA Rapid Test Not Detected (NotDetected)
== END 2021-04-22 15:21 | disposition short-term general hospital (02) ==
LOC: BURERS 12:23
DX: A41.9 Sepsis, unspecified organism (principal); J18.9 Pneumonia, unspecified organism; R65.20 Severe sepsis without septic shock; R77.8 Other specified abnormalities of plasma proteins; E83.42 Hypomagnesemia; D61.818 Other pancytopenia; E11.9 Type 2 diabetes mellitus without complications; I50.9 Heart failure, unspecified; J45.909 Unspecified asthma, uncomplicated; Z20.822 Contact with and (suspected) exposure to COVID-19; Z79.899 Other long term (current) drug therapy; Z79.4 Long term (current) use of insulin
CPT/HCPCS: 0240U; 36415; 71045; 71275; 80053; 82550; 82553; 83605; 83690; 83735; 84484; 84703; 85025; 85379; 87040; 93005; 96365; 96367; 96368; 96375; J0456; J0696; J1100; J1200; J2765; J3475; J3490; J7620; Q9967

== ENCOUNTER 2021-07-28 13:38 | Emergency (ER) | payer OTHER ==
[2021-07-28 15:00] LABS: ALT (SGPT) 11 U/L (8-55); AST (SGOT) 13 U/L (5-34); Albumin 3.5 g/dL (3.5-5.0); Alkaline Phosphatase 70 U/L (40-110); Anion Gap 15 mmol/L (10-20); BUN (Urea Nitrogen) 26 mg/dL (7.0-18.7); Bilirubin, Total 0.4 mg/dL (0.2-1.2); Calc. Creatinine Clearance 0 mL/min (70-130); Calcium 9.1 mg/dL (7.8-10.44); Carbon Dioxide 19 mmol/L (22-29); Chloride 107 mmol/L (98-107); Globulin 2.9 g/dL (2.4-3.5); Glucose 222 mg/dL (70-105); Lipase 90 U/L (8-78); Potassium 4.7 mmol/L (3.5-5.1); Protein, Total 6.4 g/dL (6.0-8.3); Sodium 136 mmol/L (136-145)
[2021-07-28] MEDS ORDERED: Dicyclomine 20 MG TAB ONE (15:00)
[2021-07-28 15:05] LABS: Hemoglobin 8.6 g/dL (12.0-16.0); Mean Corpuscular HGB CONC 30.6 g/dL (32.0-36.0); Mean Corpuscular Hemoglobin 27.1 pg (27.0-31.0); Mean Corpuscular Volume 88.7 fL (78.0-98.0); Mean Platelet Volume 8.2 fL (7.4-10.4); Platelet Count 61 thou/uL (130-400); RBC Distribution Width 15.5 % (11.5-14.5); Red Blood Cell (RBC) Count 3.16 mill/uL (4.20-5.40); White Blood Cell (WBC) Count 3.3 thou/uL (4.8-10.8)
[2021-07-28 15:06] LABS: #Eosinphils 0.1 thou/uL (0.0-0.7); #Lymphocytes 0.9 thou/uL (1.20-3.40); #Monocytes 0.4 thou/uL (0.11-0.59); %Basophils 1.5 % (0.0-1.0); %Lymphocytes 25.8 % (21.0-51.0); %Monocytes 11.5 % (0.0-10.0); %Neutrophils 59.2 % (42.0-75.0)
[2021-07-28 15:37] LABS: Anisocytosis MODERATE=16-30 cells (100X) (0-5/hpf); Hypochromia SLIGHT = 6-15 cells (100X) (0-5/hpf); MDiff Complete? YES; Microcytosis MODERATE=15-30 cells (100X) (0-5/hpf); Ovalocytes SLIGHT = 2-5 cells (100X) (0-1/hpf); Platelet Morphology Comment Appears Decreased; Small Platelets SLIGHT; Spherocytes MODERATE= 6-15 cells (100X) (None Seen); Tear Drops SLIGHT = 2-5 cells (100X) (0-1/hpf)
[2021-07-28] MEDS ORDERED: Ibuprofen 800 MG TAB ONE (15:43)
== END 2021-07-28 16:05 | disposition home or self-care (01) ==
LOC: BURERS 13:38
DX: K52.9 Noninfective gastroenteritis and colitis, unspecified (principal); L04.9 Acute lymphadenitis, unspecified; R00.0 Tachycardia, unspecified; E87.2 Acidosis; D61.818 Other pancytopenia; E11.9 Type 2 diabetes mellitus without complications; J45.909 Unspecified asthma, uncomplicated; D50.9 Iron deficiency anemia, unspecified; Z79.899 Other long term (current) drug therapy
CPT/HCPCS: 36415; 80053; 83605; 83690; 85025; 99284

== ENCOUNTER 2021-08-09 18:47 | Emergency (ER) | payer OTHER | END 2021-08-09 19:48 | disposition home or self-care (01) | LOC: BURERS 18:47 | DX: I10 Essential (primary) hypertension (principal); G89.29 Other chronic pain | CPT/HCPCS: 99283 ==

== ENCOUNTER 2021-09-02 13:26 | Emergency (ER) | payer OTHER ==
[2021-09-02 14:12] LABS: #Eosinphils 0.1 thou/uL (0.0-0.7); #Lymphocytes 0.7 thou/uL (1.20-3.40); #Monocytes 0.4 thou/uL (0.11-0.59); #Neutrophils 3.5 thou/uL (1.40-6.50); %Basophils 0.5 % (0.0-1.0); %Eosinophils 1.3 % (0.0-10.0); %Lymphocytes 15.2 % (21.0-51.0); %Monocytes 8.9 % (0.0-10.0); %Neutrophils 74.1 % (42.0-75.0); Hemoglobin 10.1 g/dL (12.0-16.0); Mean Corpuscular HGB CONC 31.2 g/dL (32.0-36.0); Mean Corpuscular Hemoglobin 27.7 pg (27.0-31.0); Platelet Count 56 thou/uL (130-400); Red Blood Cell (RBC) Count 3.64 mill/uL (4.20-5.40); White Blood Cell (WBC) Count 4.8 thou/uL (4.8-10.8)
[2021-09-02 14:19] LABS: MDiff Complete? YES
[2021-09-02] MEDS ORDERED: Ketorolac Tromethamine 30 MG/ML VIAL ONE (14:19)
[2021-09-02 14:39] LABS: ALT (SGPT) 12 U/L (8-55); AST (SGOT) 13 U/L (5-34); Albumin 3.5 g/dL (3.5-5.0); Alkaline Phosphatase 65 U/L (40-110); Anion Gap 14 mmol/L (10-20); BUN (Urea Nitrogen) 30 mg/dL (7.0-18.7); Bilirubin, Total 0.5 mg/dL (0.2-1.2); Calc. Creatinine Clearance 0 mL/min (70-130); Calcium 8.9 mg/dL (7.8-10.44); Carbon Dioxide 20 mmol/L (22-29); Chloride 110 mmol/L (98-107); Globulin 2.6 g/dL (2.4-3.5); Glucose 105 mg/dL (70-105); Potassium 4.4 mmol/L (3.5-5.1); Protein, Total 6.1 g/dL (6.0-8.3); Sodium 140 mmol/L (136-145)
[2021-09-03 14:40] LABS: SARS-CoV-2 PCR by NAA Not Detected (NotDetected)
== END 2021-09-02 15:47 | disposition home or self-care (01) ==
LOC: BURERS 13:26
DX: R06.02 Shortness of breath (principal); R06.2 Wheezing; R05.9 Cough, unspecified; R19.7 Diarrhea, unspecified; R11.10 Vomiting, unspecified; E11.9 Type 2 diabetes mellitus without complications; D50.9 Iron deficiency anemia, unspecified; Z20.822 Contact with and (suspected) exposure to COVID-19
CPT/HCPCS: 36415; 71046; 80053; 85025; 96374; J1885; J7620; U0003; U0005

== ENCOUNTER 2022-06-16 12:21 | Emergency (ER) | payer OTHER ==
[2022-06-16] MEDS ORDERED: Lidocaine Viscous Sol 2% 15 ml UD Cup ONE (13:00)
[2022-06-16] MEDS ORDERED: Ibuprofen 200 MG TAB ONE (13:03)
[2022-06-16 13:14] LABS: Bilirubin Negative (Negative); Blood, Urine Small (Negative); Clarity Clear (Clear); Glucose, Urine (Dipstick) >=1000 mg/dL (Negative); Ketone, Urine Negative (Negative); Leukocyte Trace (Negative); Nitrite Negative (Negative); Protein, Urine (Dipstick) 100 mg/dL (Neg-Trace); Urobilinogen 0.2 mg/dL (Less than 2); pH, Urine 6.5 (5.0-9.0)
[2022-06-16 13:20] LABS: Pregnancy Test - Urine (BHCG) Negative (Negative); Pregu Control Background? CLEAR/WHITE (CLR/WHITE); Pregu Control Bar Appear? YES (CONTROL BAR)
[2022-06-16 13:25] LABS: Bacteria/HPF Rare-Few HPF (None Seen); RBC/HPF 0-3 HPF (0-3); WBC/HPF 0-3 HPF (0-3)
[2022-06-16 14:35] LABS: ALT (SGPT) 14 U/L (8-55); AST (SGOT) 11 U/L (5-34); Albumin 3.9 g/dL (3.5-5.0); Alkaline Phosphatase 78 U/L (40-110); Anion Gap 16 mmol/L (10-20); BUN (Urea Nitrogen) 27 mg/dL (7.0-18.7); Bilirubin, Total 0.7 mg/dL (0.2-1.2); Calc. Creatinine Clearance 0 mL/min (70-130); Calcium 9.6 mg/dL (7.8-10.44); Carbon Dioxide 21 mmol/L (22-29); Chloride 103 mmol/L (98-107); Estimated GFR 30; Globulin 2.4 g/dL (2.4-3.5); Glucose 406 mg/dL (70-105); Potassium 5.3 mmol/L (3.5-5.1); Protein, Total 6.3 g/dL (6.0-8.3); Sodium 135 mmol/L (136-145)
[2022-06-16 14:41] LABS: Base Excess-Venous -3.3 mmol/L (-2.0 to 3.0); Bicarbonate (HCO3v) 22.6 mmol/L (22.0-28.0); Calcium, Ionized 1.28 mmol/L (1.15-1.33); Chloride 103 mmol/L (98-107); Hemoglobin - Calc 10.6 g/dL (12.0-16.0); Potassium 5.2 mmol/L (3.5-5.1); Sodium 136 mmol/L (138-145); T. Carbon Dioxide 23.9 mmol/L (22.0-28.0); vO2 Saturation-calc 99.3 % (60.0-85.0)
[2022-06-16 14:43] LABS: #Lymphocytes 0.9 thou/uL (1.20-3.40); #Monocytes 0.3 thou/uL (0.11-0.59); #Neutrophils 1.7 thou/uL (1.40-6.50); %Basophils 0.6 % (0.0-1.0); %Eosinophils 1.3 % (0.0-10.0); %Lymphocytes 31.7 % (21.0-51.0); %Monocytes 10.5 % (0.0-10.0); %Neutrophils 55.9 % (42.0-75.0); Anisocytosis SLIGHT = 6-15 cells (100X) (0-5/hpf); Hemoglobin 9.5 g/dL (12.0-16.0); Hypochromia SLIGHT = 6-15 cells (100X) (0-5/hpf); MDiff Complete? YES; Mean Corpuscular HGB CONC 31.3 g/dL (32.0-36.0); Mean Corpuscular Hemoglobin 26.3 pg (27.0-31.0); Mean Corpuscular Volume 84.2 fL (78.0-98.0); Mean Platelet Volume 8.9 fL (7.4-10.4); Microcytosis SLIGHT = 6-15 cells (100X) (0-5/hpf); Ovalocytes SLIGHT = 2-5 cells (100X) (0-1/hpf); Platelet Count 62 thou/uL (130-400); Platelet Morphology Comment Appears Decreased; Poikilocytosis SLIGHT = 6-15 cells (100X) (0-5/hpf); Red Blood Cell (RBC) Count 3.62 mill/uL (4.20-5.40)
[2022-06-16] MEDS ORDERED: INSULIN REGULAR IN 0.9 % NACL 100 UNIT/100 ML BAG ONE (15:26)
[2022-06-16] MEDS ORDERED: Acetaminophen 500 MG TAB ONE (15:30)
[2022-06-17 11:22] LABS: Chlamydia by PCR Not Detected (NotDetected); GC by PCR Not Detected (NotDetected)
== END 2022-06-16 16:15 | disposition home or self-care (01) ==
LOC: BURERS 12:21
DX: B37.3 Candidiasis of vulva and vagina (principal); E10.65 Type 1 diabetes mellitus with hyperglycemia; I10 Essential (primary) hypertension; J45.909 Unspecified asthma, uncomplicated; Z79.4 Long term (current) use of insulin
CPT/HCPCS: 36416; 80053; 81003; 81015; 81025; 82330; 82803; 85025; 87077; 87086; 87480; 87491; 87510; 87591; 87660; 96360; 36415-59; J1815

== ENCOUNTER 2022-06-26 15:09 | Emergency (ER) | payer OTHER ==
[2022-06-26] MEDS ORDERED: Ondansetron PF 4 MG/2 ML Vial ONE ×2 (16:27→18:01)
[2022-06-26 16:33] LABS: ALT (SGPT) 12 U/L (8-55); AST (SGOT) 13 U/L (5-34); Albumin 3.8 g/dL (3.5-5.0); Alkaline Phosphatase 75 U/L (40-110); Anion Gap 14 mmol/L (10-20); BUN (Urea Nitrogen) 29 mg/dL (7.0-18.7); Bilirubin, Total 0.6 mg/dL (0.2-1.2); Calc. Creatinine Clearance 0 mL/min (70-130); Calcium 9.1 mg/dL (7.8-10.44); Carbon Dioxide 20 mmol/L (22-29); Chloride 111 mmol/L (98-107); Estimated GFR 33; Globulin 2.3 g/dL (2.4-3.5); Glucose 273 mg/dL (70-105); Lipase 55 U/L (8-78); Potassium 4.6 mmol/L (3.5-5.1); Protein, Total 6.1 g/dL (6.0-8.3); Sodium 140 mmol/L (136-145)
[2022-06-26 16:39] LABS: Mean Corpuscular HGB CONC 30.7 g/dL (32.0-36.0); Mean Corpuscular Hemoglobin 26.1 pg (27.0-31.0); Mean Corpuscular Volume 85.3 fL (78.0-98.0); Mean Platelet Volume 8.5 fL (7.4-10.4); Platelet Count 49 thou/uL (130-400); RBC Distribution Width 16.7 % (11.5-14.5); Red Blood Cell (RBC) Count 3.44 mill/uL (4.20-5.40); White Blood Cell (WBC) Count 3.1 thou/uL (4.8-10.8)
[2022-06-26 16:59] LABS: Anisocytosis SLIGHT = 6-15 cells (100X) (0-5/hpf); Eosinophils 2 % (0-10); Lymphocytes 34 % (21-51); MDiff Complete? YES; Monocytes 12 % (0-10); Neutrophil 50 % (42-75); Platelet Morphology Comment Appears Decreased
[2022-06-26] MEDS ORDERED: diphenhydrAMINE 50 MG/ML VIAL ONE (18:00)
[2022-06-26] MEDS ORDERED: Pantoprazole 40 MG VIAL ONE (18:01)
[2022-06-26 18:07] LABS: Bilirubin Negative (Negative); Blood, Urine Small (Negative); Clarity Clear (Clear); Glucose, Urine (Dipstick) >=1000 mg/dL (Negative); Ketone, Urine Negative (Negative); Leukocyte Negative (Negative); Nitrite Negative (Negative); Protein, Urine (Dipstick) 30 mg/dL (Neg-Trace); Specific Gravity, Urine 1.015 (1.005-1.030); Urobilinogen 0.2 mg/dL (Less than 2); pH, Urine 5.5 (5.0-9.0)
[2022-06-26 18:13] LABS: Bacteria/HPF Rare-Few HPF (None Seen); RBC/HPF 0-3 HPF (0-3)
== END 2022-06-26 19:04 | disposition home or self-care (01) ==
LOC: BURERS 15:09
DX: E86.0 Dehydration (principal); E10.65 Type 1 diabetes mellitus with hyperglycemia; D64.9 Anemia, unspecified; D69.6 Thrombocytopenia, unspecified; I10 Essential (primary) hypertension; Z20.822 Contact with and (suspected) exposure to COVID-19
CPT/HCPCS: 36416; 80053; 81003; 81015; 83690; 85025; 87804; 93005; 96361; 96374; 96375; 96376; C9113; J1200; J2405; U0003; U0005

== ENCOUNTER 2022-07-12 14:12 | Emergency (ER) | payer OTHER ==
[2022-07-12] MEDS ORDERED: Acetaminophen 500 MG TAB ONE (14:26)
[2022-07-12] MEDS ORDERED: Clindamycin 150 MG CAP ONE (14:26)
[2022-07-12] MEDS ORDERED: Bupivacaine 0.5% 10 ML VIAL ONE (14:36)
== END 2022-07-12 14:45 | disposition home or self-care (01) ==
LOC: BURERS 14:12
DX: K04.7 Periapical abscess without sinus (principal); K02.9 Dental caries, unspecified; E10.9 Type 1 diabetes mellitus without complications; Z79.4 Long term (current) use of insulin; D64.9 Anemia, unspecified; I10 Essential (primary) hypertension
CPT/HCPCS: 64400; J3490

== ENCOUNTER 2022-07-30 12:16 | Emergency (ER) | payer OTHER ==
[2022-07-30] MEDS ORDERED: Ketorolac Tromethamine 30 MG/ML VIAL ONE (12:38)
[2022-07-30] MEDS ORDERED: Dicyclomine 20 MG/2 ML VIAL ONE (12:38)
[2022-07-30] MEDS ORDERED: Ondansetron ODT 4 MG TAB ONE (12:38)
== END 2022-07-30 13:15 | disposition home or self-care (01) ==
LOC: BURERS 12:16
DX: A08.4 Viral intestinal infection, unspecified (principal); E10.9 Type 1 diabetes mellitus without complications; D64.9 Anemia, unspecified; I10 Essential (primary) hypertension; Z79.4 Long term (current) use of insulin
CPT/HCPCS: 36416; 96372; 99284; J1885; Q0162

== ENCOUNTER 2022-11-18 13:17 | Emergency (ER) | payer OTHER ==
[2022-11-18 14:01] LABS: Bilirubin Negative (Negative); Blood, Urine Moderate (Negative); Clarity Slightly Cloudy (Clear); Glucose, Urine (Dipstick) 500 mg/dL (Negative); Ketone, Urine Negative (Negative); Leukocyte Negative (Negative); Nitrite Negative (Negative); Protein, Urine (Dipstick) 100 mg/dL (Neg-Trace); Specific Gravity, Urine 1.015 (1.005-1.030); Urobilinogen 0.2 mg/dL (Less than 2)
[2022-11-18 14:10] LABS: Bacteria/HPF Rare-Few HPF (None Seen); WBC/HPF None Seen HPF (0-3)
[2022-11-18 14:14] LABS: #Lymphocytes 0.7 thou/uL (1.20-3.40); #Monocytes 0.3 thou/uL (0.11-0.59); #Neutrophils 2.2 thou/uL (1.40-6.50); %Basophils 0.7 % (0.0-1.0); %Lymphocytes 21.6 % (21.0-51.0); %Monocytes 8.1 % (0.0-10.0); %Neutrophils 68.6 % (42.0-75.0); Hemoglobin 8.5 g/dL (12.0-16.0); Mean Corpuscular HGB CONC 30.3 g/dL (32.0-36.0); Mean Corpuscular Hemoglobin 27.2 pg (27.0-31.0); Mean Corpuscular Volume 89.7 fl (78.0-98.0); Mean Platelet Volume 7.7 fL (7.4-10.4); Platelet Count 59 10x3/uL (130-400); RBC Distribution Width 16.8 % (11.5-14.5); Red Blood Cell (RBC) Count 3.11 mill/uL (4.20-5.40); White Blood Cell (WBC) Count 3.5 10x3/uL (4.8-10.8)
[2022-11-18 14:30] LABS: Anion Gap 14 mmol/L (10-20); BUN (Urea Nitrogen) 29 mg/dL (7.0-18.7); Calc. Creatinine Clearance 0 mL/min (70-130); Calcium 9.2 mg/dL (7.8-10.44); Carbon Dioxide 22 mmol/L (22-29); Chloride 104 mmol/L (98-107); Estimated GFR 30; Potassium 5.2 mmol/L (3.5-5.1); Sodium 135 mmol/L (136-145)
[2022-11-18 14:36] LABS: Anisocytosis SLIGHT = 6-15 cells (100X) (0-5/hpf); MDiff Complete? YES; Platelet Morphology Comment Appears Decreased
[2022-11-18 14:38] LABS: Glucose 464 mg/dL (70-105)
[2022-11-18] MEDS ORDERED: Insulin Regular 300 UNITS/3 ML VIAL ONE (15:22)
[2022-11-18] MEDS ORDERED: Ondansetron PF 4 MG/2 ML Vial ONE (15:41)
[2022-11-18] MEDS ORDERED: Acetaminophen 500 MG TAB ONE (15:41)
[2022-11-18 15:45] LABS: Base Excess-Venous -6.4 mmol/L (-2.0 to 3.0); Bicarbonate (HCO3v) 18.9 mmol/L (22.0-28.0); CO2 Tension (PvCO2) 35.6 mmHg (42.0-51.0); Calcium, Ionized 1.12 mmol/L (1.15-1.33); Chloride 109 mmol/L (98-107); Hemoglobin - Calc 8.2 g/dL (12.0-16.0); Sodium 136 mmol/L (138-145); vO2 Saturation-calc 71.9 % (60.0-85.0)
== END 2022-11-18 16:32 | disposition home or self-care (01) ==
LOC: BURERS 13:17
DX: J20.9 Acute bronchitis, unspecified (principal); E86.0 Dehydration; E10.65 Type 1 diabetes mellitus with hyperglycemia; Z79.4 Long term (current) use of insulin; I10 Essential (primary) hypertension; Z20.822 Contact with and (suspected) exposure to COVID-19
CPT/HCPCS: 36415; 71046; 80048; 81003; 81015; 82330; 82803; 85025; 87804; 87807; 94640; 96361; 96374; J1815; J2405; J7620; U0003; U0005

== ENCOUNTER 2022-11-23 20:04 | Emergency (ER) | payer OTHER ==
[2022-11-23] MEDS ORDERED: traMADol HCl 50 MG TAB ONE (21:02)
== END 2022-11-23 21:08 | disposition home or self-care (01) ==
LOC: BURERS 20:04
DX: J06.9 Acute upper respiratory infection, unspecified (principal); R07.1 Chest pain on breathing; I10 Essential (primary) hypertension; E10.9 Type 1 diabetes mellitus without complications; J45.909 Unspecified asthma, uncomplicated
CPT/HCPCS: 71046

== ENCOUNTER 2023-01-23 12:45 | Observation (INO) | payer OTHER ==
[2023-01-23] MEDS ORDERED: Ibuprofen 800 MG TAB ONE (13:26)
[2023-01-23] MEDS ORDERED: traMADol HCl 50 MG TAB ONE (13:26)
[2023-01-23 13:28] LABS: #Lymphocytes 0.7 thou/uL (1.20-3.40); #Monocytes 0.3 thou/uL (0.11-0.59); #Neutrophils 1.1 thou/uL (1.40-6.50); %Basophils 0.7 % (0.0-1.0); %Eosinophils 1.9 % (0.0-10.0); %Lymphocytes 32.2 % (21.0-51.0); %Monocytes 13.4 % (0.0-10.0); %Neutrophils 51.8 % (42.0-75.0); Hemoglobin 7.1 g/dL (12.0-16.0); Mean Corpuscular HGB CONC 33.7 g/dL (32.0-36.0); Mean Corpuscular Hemoglobin 31.2 pg (27.0-31.0); Mean Corpuscular Volume 92.5 fl (78.0-98.0); Mean Platelet Volume 6.8 fL (7.4-10.4); Platelet Count 85 10x3/uL (130-400); RBC Distribution Width 16.2 % (11.5-14.5); Red Blood Cell (RBC) Count 2.27 mill/uL (4.20-5.40); White Blood Cell (WBC) Count 2.2 10x3/uL (4.8-10.8)
[2023-01-23 13:43] LABS: ALT (SGPT) 13 U/L (8-55); AST (SGOT) 14 U/L (5-34); Albumin 3.4 g/dL (3.5-5.0); Alkaline Phosphatase 53 U/L (40-110); Anion Gap 14 mmol/L (10-20); BUN (Urea Nitrogen) 30 mg/dL (7.0-18.7); Bilirubin, Total 0.9 mg/dL (0.2-1.2); Calc. Creatinine Clearance 0 mL/min (70-130); Calcium 8.5 mg/dL (7.8-10.44); Carbon Dioxide 21 mmol/L (22-29); Chloride 111 mmol/L (98-107); Estimated GFR 39; Globulin 2.1 g/dL (2.4-3.5); Glucose 198 mg/dL (70-105); Protein, Total 5.5 g/dL (6.0-8.3); Sodium 141 mmol/L (136-145)
[2023-01-23 13:53] LABS: Hypochromia SLIGHT = 6-15 cells (100X) (0-5/hpf); MDiff Complete? YES; Platelet Morphology Comment Appears Decreased
[2023-01-23] MEDS ORDERED: Acetaminophen 325 MG TAB PO PRN (16:45)
[2023-01-23] MEDS ORDERED: Ondansetron ODT 4 MG TAB SL PRN (16:45)
[2023-01-23] MEDS ORDERED: Ondansetron PF 4 MG/2 ML Vial IVP PRN (16:45)
[2023-01-23 18:02] LABS: SARS-CoV-2 NAA Rapid Test Not Detected (NotDetected)
[2023-01-23] MEDS ORDERED: Dextrose 50% Abboject 50 ML SYRINGE SLOW IVP PRN (19:45)
[2023-01-23] MEDS ORDERED: HumaLOG 300 UNITS/3 ML VIAL SC PRN (19:45)
[2023-01-23] MEDS ORDERED: Dextrose 5% in Water 1,000 ML IV PRN (19:45)
[2023-01-23] MEDS ORDERED: Atorvastatin Calcium 10 MG TAB PO SCH (21:00)
[2023-01-23] MEDS: Sodium Chloride 0.9% 1,000 ML IV SCH (21:25)
[2023-01-23] MEDS: Gabapentin 300 MG CAP PO SCH (21:26)
[2023-01-23] MEDS: Sodium Bicarbonate Tab 325 MG TAB PO SCH ×2 (21:26→21:30)
[2023-01-23] MEDS: Pregabalin 25 MG CAP PO SCH (21:27)
[2023-01-23] MEDS: Carvedilol 6.25 MG TAB PO SCH (21:27)
[2023-01-23] MEDS: HumuLIN 70/30 (300 UNITS/3 ML VIAL) SC SCH (21:45)
[2023-01-23] MEDS: Ipratropium/Albuterol 3 ML NEB NEB SCH (21:50)
[2023-01-24] MEDS: Ipratropium/Albuterol 3 ML NEB NEB SCH (00:18)
[2023-01-24] MEDS: Sodium Chloride 0.9% 1,000 ML IV SCH (05:31)
[2023-01-24] MEDS ORDERED: traMADol HCl 50 MG TAB PO PRN (08:28)
[2023-01-24] MEDS: Gabapentin 300 MG CAP PO SCH (08:57)
[2023-01-24] MEDS: Sodium Bicarbonate Tab 325 MG TAB PO SCH (08:58)
[2023-01-24] MEDS: Pregabalin 25 MG CAP PO SCH (08:58)
[2023-01-24] MEDS: Carvedilol 6.25 MG TAB PO SCH (08:59)
[2023-01-24] MEDS ORDERED: Amlodipine 5 MG TAB PO SCH (09:00)
[2023-01-24] MEDS ORDERED: Empagliflozin 10 MG TAB PO SCH (09:00)
[2023-01-24] MEDS: HumuLIN 70/30 (300 UNITS/3 ML VIAL) SC SCH (09:08)
[2023-01-24 11:52] LABS: Hemoglobin 6.5 g/dL (12.0-16.0); Mean Corpuscular Hemoglobin 30.8 pg (27.0-31.0); Mean Corpuscular Volume 93.2 fl (78.0-98.0); Mean Platelet Volume 7.7 fL (7.4-10.4); Platelet Count 89 10x3/uL (130-400); RBC Distribution Width 16.5 % (11.5-14.5); Red Blood Cell (RBC) Count 2.12 mill/uL (4.20-5.40); White Blood Cell (WBC) Count 2.1 10x3/uL (4.8-10.8)
[2023-01-24 12:22] LABS: Hypochromia SLIGHT = 6-15 cells (100X) (0-5/hpf); MDiff Complete? YES; Platelet Morphology Comment Appears Decreased
[2023-01-24 12:27] LABS: Eosinophils 1 % (0-10); Lymphocytes 31 % (21-51); Monocytes 14 % (0-10); Neutrophil 53 % (42-75)
[2023-01-24 13:48] VITALS: BP 131/78; TEMP 97.5
== END 2023-01-24 14:15 | disposition short-term general hospital (02) ==
LOC: BURERS 12:45 → BURMED 15:38
PROVIDERS: ADMIT Family Medicine; ATTEND Family Medicine
DX: D61.818 Other pancytopenia (principal); E11.9 Type 2 diabetes mellitus without complications; J45.909 Unspecified asthma, uncomplicated; I10 Essential (primary) hypertension; F79 Unspecified intellectual disabilities; Z79.4 Long term (current) use of insulin; Z79.899 Other long term (current) drug therapy; Z88.1 Allergy status to other antibiotic agents; Z88.2 Allergy status to sulfonamides; Z88.8 Allergy status to other drugs, medicaments and biological substances; Z20.822 Contact with and (suspected) exposure to COVID-19
CPT/HCPCS: 36415; 36416; 71045; 80053; 82274; 85025; 86850; 86860; 86870; 86880; 86900; 86901; 86922; 86970; 99285; G0378; J1815; J7050; J7620; U0002

== ENCOUNTER 2023-03-09 07:28 | Emergency (ER) | payer OTHER ==
[2023-03-09] MEDS ORDERED: Ketorolac Tromethamine 30 MG/ML VIAL ONE (08:28)
[2023-03-09 08:37] LABS: #Lymphocytes 0.4 thou/uL (1.20-3.40); #Monocytes 0.4 thou/uL (0.11-0.59); #Neutrophils 7.1 thou/uL (1.40-6.50); %Basophils 0.5 % (0.0-1.0); %Monocytes 4.5 % (0.0-10.0); Hemoglobin 10.3 g/dL (12.0-16.0); Mean Corpuscular HGB CONC 31.3 g/dL (32.0-36.0); Mean Corpuscular Hemoglobin 29.2 pg (27.0-31.0); Mean Corpuscular Volume 93.2 fl (78.0-98.0); Platelet Count 19 10x3/uL (130-400); RBC Distribution Width 15.3 % (11.5-14.5); Red Blood Cell (RBC) Count 3.54 mill/uL (4.20-5.40); White Blood Cell (WBC) Count 8.6 10x3/uL (4.8-10.8)
[2023-03-09 08:39] LABS: Base Excess-Venous -6.5 mmol/L (-2.0 to 3.0); Bicarbonate (HCO3v) 15.5 mmol/L (22.0-28.0); CO2 Tension (PvCO2) 21.7 mmHg (42.0-51.0); Calcium, Ionized 1.02 mmol/L (1.15-1.33); Chloride 108 mmol/L (98-107); Hemoglobin - Calc 11.8 g/dL (12.0-16.0); Potassium 4.8 mmol/L (3.5-5.1); Sodium 133 mmol/L (138-145); T. Carbon Dioxide 16.2 mmol/L (22.0-28.0); vO2 Saturation-calc 99.8 % (60.0-85.0)
[2023-03-09 08:40] LABS: BHCG - Serum Negative (NEGATIVE); Pregs Control Background? CLEAR/WHITE (CLR/WHITE); Pregs Control Bar Appear? YES (CONTROL BAR)
[2023-03-09 08:47] LABS: ALT (SGPT) 15 U/L (8-55); AST (SGOT) 13 U/L (5-34); Albumin 3.9 g/dL (3.5-5.0); Alkaline Phosphatase 60 U/L (40-110); Anion Gap 15 mmol/L (10-20); BUN (Urea Nitrogen) 26 mg/dL (7.0-18.7); Bilirubin, Total 0.6 mg/dL (0.2-1.2); Calc. Creatinine Clearance 0 mL/min (70-130); Calcium 8.8 mg/dL (7.8-10.44); Carbon Dioxide 15 mmol/L (22-29); Chloride 108 mmol/L (98-107); Estimated GFR 39; Globulin 1.7 g/dL (2.4-3.5); Glucose 386 mg/dL (70-105); Lipase 39 U/L (8-78); Magnesium 1.2 mg/dL (1.6-2.6); Potassium 4.7 mmol/L (3.5-5.1); Protein, Total 5.6 g/dL (6.0-8.3); Sodium 133 mmol/L (136-145)
[2023-03-09 08:51] LABS: Platelet Morphology Comment Appears Decreased; RBC Morphology Normal
[2023-03-09 08:52] LABS: Acetaminophen Less than 10.0 mcg/mL (10.0-30.0); Alcohol Less than 10 mg/dL (Less than 10); Salicylate Less than 8.0 mg/dL (15.0-30.0)
[2023-03-09 09:12] LABS: Bilirubin Negative (Negative); Blood, Urine Large (Negative); Clarity Slightly Cloudy (Clear); Glucose, Urine (Dipstick) 500 mg/dL (Negative); Ketone, Urine Negative (Negative); Leukocyte Negative (Negative); Nitrite Negative (Negative); Protein, Urine (Dipstick) > or equal to 300 mg/dL (Neg-Trace); Urobilinogen 0.2 mg/dL (Less than 2)
[2023-03-09 09:22] LABS: Amphetamine Not Detected (NotDetected); Barbiturates Screen Not Detected (NotDetected); Benzodiazepine Screen Not Detected (NotDetected); Cocaine Metabolite Screen Not Detected (NotDetected); Methadone Not Detected (NotDetected); Methamphetamine Not Detected (NotDetected); Opiate Screen Not Detected (NotDetected); Oxycodone Screen Not Detected (NotDetected); Phencyclidine (PCP) Not Detected (NotDetected); THC/Cannabinoid Screen Not Detected (NotDetected); Tricyclic Screen Not Detected (NotDetected)
[2023-03-09 09:27] LABS: RBC/HPF 21-50 HPF (0-3); WBC/HPF 0-3 HPF (0-3)
[2023-03-09 09:28] LABS: Bacteria/HPF 3+ HPF (None Seen)
[2023-03-09 09:32] LABS: SARS-CoV-2 NAA Rapid Test Not Detected (NotDetected)
[2023-03-09] MEDS ORDERED: Magnesium 2 GM/50 ML BAG (IN WATER) ONE (09:47)
[2023-03-09] MEDS ORDERED: Insulin Regular 300 UNITS/3 ML VIAL ONE (09:47)
[2023-03-09] MEDS ORDERED: Levofloxacin 500 mg/D5W 100 ml Premix Bag ONE (09:47)
[2023-03-09] MEDS ORDERED: Acetaminophen 500 MG TAB ONE (09:49)
[2023-03-09] MEDS ORDERED: Iopamidol 370 76% 100 ML VIAL ONE (10:08)
[2023-03-09] MEDS ORDERED: Ondansetron PF 4 MG/2 ML Vial ONE (10:08)
[2023-03-09] MEDS ORDERED: Promethazine HCl 25 MG/ML VIAL ONE (10:09)
[2023-03-09 11:21] LABS: Phosphorus 1.5 mg/dL (2.3-4.7)
== END 2023-03-09 11:15 | disposition short-term general hospital (02) ==
LOC: BURERS 07:28
DX: J18.9 Pneumonia, unspecified organism (principal); E83.42 Hypomagnesemia; E10.65 Type 1 diabetes mellitus with hyperglycemia; D64.9 Anemia, unspecified; I10 Essential (primary) hypertension; J45.909 Unspecified asthma, uncomplicated; Z20.822 Contact with and (suspected) exposure to COVID-19; Z79.4 Long term (current) use of insulin; Z79.84 Long term (current) use of oral hypoglycemic drugs; Z79.899 Other long term (current) drug therapy
CPT/HCPCS: 36415; 51701; 71045; 74177; 80053; 80306; 80307; 81003; 81015; 82010; 82330; 82803; 83605; 83690; 83735; 84100; 84484; 84703; 85025; 87040; 87077; 87086; 87149; 87186; 93005; 96365; 96367; 96375; J1815; J1885; J1956; J2405; J2550; J3475; Q9967

== ENCOUNTER 2023-06-29 17:16 | Inpatient (IN) | payer OTHER ==
[2023-06-29 17:59] LABS: Hematocrit 32.2 % (36.0-47.0); Hemoglobin 9.6 g/dL (12.0-16.0); Mean Corpuscular HGB CONC 29.9 g/dL (32.0-36.0); Mean Corpuscular Hemoglobin 27.7 pg (27.0-31.0); Mean Corpuscular Volume 92.7 fl (78.0-98.0); Mean Platelet Volume 9.4 fL (7.4-10.4); Platelet Count 52 10x3/uL (130-400); RBC Distribution Width 15.1 % (11.5-14.5); Red Blood Cell (RBC) Count 3.48 mill/uL (4.20-5.40); White Blood Cell (WBC) Count 3.8 10x3/uL (4.8-10.8)
[2023-06-29 18:09] LABS: BHCG - Serum Negative (NEGATIVE); Pregs Control Background? CLEAR/WHITE (CLR/WHITE); Pregs Control Bar Appear? YES (CONTROL BAR)
[2023-06-29 18:13] LABS: ALT (SGPT) 19 U/L (8-55); AST (SGOT) 14 U/L (5-34); Albumin 3.7 g/dL (3.5-5.0); Alkaline Phosphatase 72 U/L (40-110); Anion Gap 16 mmol/L (10-20); BUN (Urea Nitrogen) 36 mg/dL (7.0-18.7); Bilirubin, Total 0.4 mg/dL (0.2-1.2); CK (CPK) 37 U/L (29-168); Calc. Creatinine Clearance 0 mL/min (70-130); Calcium 8.9 mg/dL (7.8-10.44); Carbon Dioxide 16 mmol/L (22-29); Chloride 108 mmol/L (98-107); Estimated GFR 28; Globulin 1.9 g/dL (2.4-3.5); Glucose 340 mg/dL (70-105); Potassium 4.6 mmol/L (3.5-5.1); Protein, Total 5.6 g/dL (6.0-8.3); Sodium 135 mmol/L (136-145)
[2023-06-29] MEDS ORDERED: Ketorolac Tromethamine 30 MG/ML VIAL ONE (18:13)
[2023-06-29] MEDS ORDERED: Clindamycin/D5W 900 mg/50 ml Premix Bag ONE (18:13)
[2023-06-29 18:15] LABS: Hypochromia SLIGHT = 6-15 cells (100X) (0-5/hpf); Lymphocytes 18 % (21-51); MDiff Complete? YES; Monocytes 8 % (0-10); Neutrophil 74 % (42-75); Platelet Adequacy Comment Appears Decreased
[2023-06-29] MEDS ORDERED: Insulin Regular 300 UNITS/3 ML VIAL ONE (18:50)
[2023-06-29 19:16] LABS: Bilirubin Negative (Negative); Blood, Urine Moderate (Negative); Clarity Slightly Cloudy (Clear); Glucose, Urine (Dipstick) 250 mg/dL (Negative); Ketone, Urine Negative (Negative); Leukocyte Negative (Negative); Nitrite Negative (Negative); Protein, Urine (Dipstick) > or equal to 300 mg/dL (Neg-Trace); Urobilinogen 0.2 mg/dL (Less than 2); pH, Urine 5.5 (5.0-9.0)
[2023-06-29 19:24] LABS: Bacteria/HPF 1+ HPF (None Seen); CAUTI Indications for Culture Dysuria,urgency,freq; WBC/HPF 0-3 HPF (0-3)
[2023-06-29 19:26] LABS: Urine Culture Reflex No No
[2023-06-29] MEDS ORDERED: Nystatin Cream 15 GM TUBE TOP SCH (19:45)
[2023-06-29] MEDS ORDERED: Vancomycin 1 GM VIAL ONE (20:18)
[2023-06-29] MEDS ORDERED: Morphine 4 MG/ML VIAL ONE (20:22)
[2023-06-29] MEDS ORDERED: Fluconazole 100 MG TAB ONE (20:23)
[2023-06-29 21:59] VITALS: BMI 46.8
[2023-06-29] MEDS ORDERED: Albuterol 200 PUFF (6.7GM INHALER) INH PRN (22:23)
[2023-06-29] MEDS ORDERED: Bisacodyl 5 MG TAB PO PRN (22:28)
[2023-06-29] MEDS ORDERED: HYDROcodone/Acetaminophen 5/325 mg Tablet PO PRN (22:28)
[2023-06-29] MEDS ORDERED: Acetaminophen 325 MG TAB PO PRN (22:28)
[2023-06-29] MEDS ORDERED: Bisacodyl 10 MG SUPP PR PRN (22:28)
[2023-06-29] MEDS ORDERED: HumaLOG 300 UNITS/3 ML VIAL SC PRN (22:31)
[2023-06-29] MEDS ORDERED: Dextrose 50% Abboject 50 ML SYRINGE SLOW IVP PRN (22:31)
[2023-06-29] MEDS ORDERED: Dextrose 5% in Water 1,000 ML IV PRN (22:31)
[2023-06-29] MEDS ORDERED: Glucagon 1 MG/ML KIT IM PRN (22:31)
[2023-06-29] MEDS ORDERED: Vancomycin HCl 1.75 GM in Sodium Chloride 0.9% 250 ML 300 ML IVPB SCH (22:45)
[2023-06-29] MEDS ORDERED: Vancomycin HCl 1 GM in Sodium Chloride 0.9% 250 ML 250 ML IVPB SCH (23:00)
[2023-06-30 00:30] LABS: SARS-CoV-2 NAA Rapid Test Not Detected (NotDetected)
[2023-06-30 05:44] LABS: ALT (SGPT) 16 U/L (8-55); AST (SGOT) 10 U/L (5-34); Albumin 3.2 g/dL (3.5-5.0); Alkaline Phosphatase 59 U/L (40-110); Anion Gap 13 mmol/L (10-20); BUN (Urea Nitrogen) 34 mg/dL (7.0-18.7); Bilirubin, Total 0.3 mg/dL (0.2-1.2); Calc. Creatinine Clearance 61 mL/min (70-130); Calcium 8.4 mg/dL (7.8-10.44); Carbon Dioxide 16 mmol/L (22-29); Chloride 111 mmol/L (98-107); Estimated GFR 29; Globulin 1.4 g/dL (2.4-3.5); Glucose 236 mg/dL (70-105); Potassium 4.3 mmol/L (3.5-5.1); Protein, Total 4.6 g/dL (6.0-8.3); Sodium 136 mmol/L (136-145)
[2023-06-30 06:35] LABS: %Basophils 1.4 % (0.0-1.0); %Eosinophils 2.8 % (0.0-10.0); %Monocytes 11.7 % (0.0-10.0); Hematocrit 28.5 % (36.0-47.0); Hemoglobin 8.8 g/dL (12.0-16.0); Mean Corpuscular HGB CONC 30.8 g/dL (32.0-36.0); Mean Corpuscular Hemoglobin 28.1 pg (27.0-31.0); Mean Corpuscular Volume 91.3 fl (78.0-98.0); Mean Platelet Volume 9.3 fL (7.4-10.4); Platelet Count 40 10x3/uL (130-400); RBC Distribution Width 14.7 % (11.5-14.5); Red Blood Cell (RBC) Count 3.08 mill/uL (4.20-5.40); White Blood Cell (WBC) Count 2.3 10x3/uL (4.8-10.8)
[2023-06-30] MEDS: HumuLIN 70/30 100 Unit/ ml 10 ml Vial SC SCH ×2 (08:48→17:06)
[2023-06-30] MEDS: Clindamycin 150 MG CAP PO SCH ×2 (08:55→17:07)
[2023-06-30] MEDS: Atorvastatin Calcium 10 MG TAB PO SCH (08:55)
[2023-06-30] MEDS: Amlodipine 5 MG TAB PO SCH (08:55)
[2023-06-30] MEDS: Gabapentin 300 MG CAP PO SCH ×2 (08:56→21:12)
[2023-06-30] MEDS: Carvedilol 6.25 MG TAB PO SCH ×2 (08:56→21:13)
[2023-06-30] MEDS ORDERED: Pregabalin 25 MG CAP PO SCH (09:00)
[2023-06-30] MEDS ORDERED: Nystatin Powder 15 GM BOT TOP SCH (09:00)
[2023-06-30] MEDS: Budesonide 0.5 MG/2 ML NEB NEB SCH ×2 (09:00→21:20)
[2023-06-30] MEDS: Nystatin Powder 15 GM BOT TOP SCH ×2 (09:43→21:19)
[2023-06-30] MEDS: HumaLOG 300 UNITS/3 ML VIAL SC PRN (12:12)
[2023-06-30] MEDS: HYDROcodone/Acetaminophen 5/325 mg Tablet PO PRN ×2 (13:08→17:07)
[2023-06-30] MEDS: Fluconazole 100 MG TAB PO SCH (21:13)
[2023-06-30] MEDS ORDERED: Vancomycin HCl 750 MG in Sodium Chloride 0.9% 250 ML 250 ML IVPB SCH (21:45)
[2023-07-01] MEDS: Clindamycin 150 MG CAP PO SCH ×3 (01:12→17:52)
[2023-07-01] MEDS: HYDROcodone/Acetaminophen 5/325 mg Tablet PO PRN ×3 (01:17→14:11)
[2023-07-01] MEDS: Calcium Carbonate 500 MG ChewTAB PO PRN (01:19)
[2023-07-01] MEDS: Ondansetron ODT 4 MG TAB SL PRN (01:19)
[2023-07-01] MEDS: HumaLOG 300 UNITS/3 ML VIAL SC PRN ×2 (05:59→12:06)
[2023-07-01] MEDS: HumuLIN 70/30 100 Unit/ ml 10 ml Vial SC SCH ×2 (08:14→17:52)
[2023-07-01] MEDS: Gabapentin 300 MG CAP PO SCH ×2 (08:18→21:25)
[2023-07-01] MEDS: Amlodipine 5 MG TAB PO SCH (08:19)
[2023-07-01] MEDS: Atorvastatin Calcium 10 MG TAB PO SCH (08:21)
[2023-07-01] MEDS: Carvedilol 6.25 MG TAB PO SCH ×2 (08:21→21:26)
[2023-07-01] MEDS: Budesonide 0.5 MG/2 ML NEB NEB SCH ×2 (08:22→21:26)
[2023-07-01] MEDS: Nystatin Powder 15 GM BOT TOP SCH ×2 (08:23→21:26)
[2023-07-01] MEDS: Fluconazole 100 MG TAB PO SCH (21:25)
[2023-07-01 21:38] LABS: Vancomycin, Random 12.1 ug/mL (See Comment)
[2023-07-01] MEDS ORDERED: Vancomycin HCl 1 GM in Sodium Chloride 0.9% 250 ML 250 ML IVPB SCH (22:00)
[2023-07-02] MEDS: HYDROcodone/Acetaminophen 5/325 mg Tablet PO PRN ×3 (00:49→19:35)
[2023-07-02 05:28] LABS: Anion Gap 13 mmol/L (10-20); BUN (Urea Nitrogen) 31 mg/dL (7.0-18.7); Calc. Creatinine Clearance 75 mL/min (70-130); Calcium 8.5 mg/dL (7.8-10.44); Carbon Dioxide 19 mmol/L (22-29); Chloride 111 mmol/L (98-107); Estimated GFR 37; Glucose 218 mg/dL (70-105); Potassium 5.1 mmol/L (3.5-5.1); Sodium 138 mmol/L (136-145)
[2023-07-02 06:27] LABS: #Eosinphils 0.1 thou/uL (0.0-0.7); #Lymphocytes 0.8 thou/uL (1.20-3.40); #Monocytes 0.2 thou/uL (0.11-0.59); #Neutrophils 1.4 thou/uL (1.40-6.50); %Basophils 0.3 % (0.0-1.0); %Lymphocytes 32.2 % (21.0-51.0); %Monocytes 9.3 % (0.0-10.0); %Neutrophils 55.3 % (42.0-75.0); Hematocrit 26.8 % (36.0-47.0); Hemoglobin 8.5 g/dL (12.0-16.0); Mean Corpuscular HGB CONC 31.8 g/dL (32.0-36.0); Mean Corpuscular Hemoglobin 28.9 pg (27.0-31.0); Mean Corpuscular Volume 90.9 fl (78.0-98.0); Platelet Count 33 10x3/uL (130-400); RBC Distribution Width 14.9 % (11.5-14.5); Red Blood Cell (RBC) Count 2.95 mill/uL (4.20-5.40); White Blood Cell (WBC) Count 2.5 10x3/uL (4.8-10.8)
[2023-07-02 06:31] LABS: Anisocytosis SLIGHT = 6-15 cells (100X) (0-5/hpf); MDiff Complete? YES; Platelet Adequacy Comment Appears Decreased
[2023-07-02] MEDS: Budesonide 0.5 MG/2 ML NEB NEB SCH (08:56)
[2023-07-02] MEDS: Carvedilol 6.25 MG TAB PO SCH ×2 (08:57→19:36)
[2023-07-02] MEDS: Amlodipine 5 MG TAB PO SCH (08:57)
[2023-07-02] MEDS: Atorvastatin Calcium 10 MG TAB PO SCH (08:57)
[2023-07-02] MEDS: Gabapentin 300 MG CAP PO SCH ×2 (08:59→19:37)
[2023-07-02] MEDS: HumuLIN 70/30 100 Unit/ ml 10 ml Vial SC SCH ×2 (09:01→18:11)
[2023-07-02] MEDS: Nystatin Powder 15 GM BOT TOP SCH (09:13)
[2023-07-02] MEDS: Calcium Carbonate 500 MG ChewTAB PO PRN (09:16)
[2023-07-02] MEDS ORDERED: Clindamycin 150 MG CAP PO SCH (09:45)
[2023-07-02] MEDS: Clindamycin 150 MG CAP PO SCH ×2 (12:16→18:09)
[2023-07-02] MEDS: Ondansetron ODT 4 MG TAB SL PRN (12:33)
[2023-07-02 18:56] VITALS: TEMP 97.4
[2023-07-02] MEDS: Fluconazole 100 MG TAB PO SCH (19:36)
[2023-07-02 19:39] VITALS: BP 132/80
== END 2023-07-02 20:09 | disposition home or self-care (01) | DRG 872 ==
LOC: BURERS 17:16 → BURMED 21:05
PROVIDERS: ADMIT Family Medicine; ATTEND Family Medicine
DX: A41.9 Sepsis, unspecified organism (principal); D61.818 Other pancytopenia; D84.9 Immunodeficiency, unspecified; Z68.42 Body mass index [BMI] 45.0-49.9, adult; E11.65 Type 2 diabetes mellitus with hyperglycemia; J44.9 Chronic obstructive pulmonary disease, unspecified; I10 Essential (primary) hypertension; E78.5 Hyperlipidemia, unspecified; E66.9 Obesity, unspecified; B35.6 Tinea cruris; Z20.822 Contact with and (suspected) exposure to COVID-19; Z88.1 Allergy status to other antibiotic agents; Z88.8 Allergy status to other drugs, medicaments and biological substances; Z88.2 Allergy status to sulfonamides
CPT/HCPCS: 36415; 36416; 71046; 74176; 80048; 80053; 80202; 81001; 82550; 83605; 84484; 84703; 85025; 87040; 96361; 96365; 96367; 96375; J1815; J1885; J2270; J3370; J3490; J7050; J7626; Q0162; U0002

== ENCOUNTER 2023-07-20 12:28 | Emergency (ER) | payer OTHER ==
[2023-07-20] MEDS ORDERED: Acetaminophen 500 MG TAB ONE (12:44)
[2023-07-20 13:32] LABS: SARS-CoV-2 NAA Rapid Test DETECTED (NotDetected)
== END 2023-07-20 14:47 | disposition home or self-care (01) ==
LOC: BURERS 12:28
DX: U07.1 COVID-19 (principal); E10.9 Type 1 diabetes mellitus without complications; Z79.4 Long term (current) use of insulin; I10 Essential (primary) hypertension; J44.9 Chronic obstructive pulmonary disease, unspecified
CPT/HCPCS: 71045; 99284

== ENCOUNTER 2023-07-28 20:50 | Emergency (ER) | payer OTHER ==
[2023-07-28] MEDS ORDERED: Ipratropium/Albuterol 3 ML NEB ONE (21:25)
[2023-07-28] MEDS ORDERED: Ketorolac Tromethamine 30 MG/ML VIAL ONE (21:25)
[2023-07-28] MEDS ORDERED: Insulin Regular 300 UNITS/3 ML VIAL ONE (21:28)
[2023-07-28 21:52] LABS: #Eosinphils 0.1 thou/uL (0.0-0.7); #Monocytes 0.4 thou/uL (0.11-0.59); #Neutrophils 2.5 thou/uL (1.40-6.50); %Basophils 0.6 % (0.0-1.0); %Eosinophils 2.1 % (0.0-10.0); %Lymphocytes 24.6 % (21.0-51.0); %Monocytes 10.2 % (0.0-10.0); %Neutrophils 62.5 % (42.0-75.0); ALT (SGPT) 23 U/L (8-55); AST (SGOT) 11 U/L (5-34); Albumin 3.9 g/dL (3.5-5.0); Alkaline Phosphatase 75 U/L (40-110); Anion Gap 18 mmol/L (10-20); BUN (Urea Nitrogen) 22 mg/dL (7.0-18.7); Bilirubin, Total 0.9 mg/dL (0.2-1.2); Calc. Creatinine Clearance 0 mL/min (70-130); Calcium 8.6 mg/dL (7.8-10.44); Carbon Dioxide 17 mmol/L (22-29); Chloride 106 mmol/L (98-107); Estimated GFR 35; Globulin 2.2 g/dL (2.4-3.5); Glucose 312 mg/dL (70-105); Hemoglobin 10.2 g/dL (12.0-16.0); Mean Corpuscular HGB CONC 31.8 g/dL (32.0-36.0); Mean Corpuscular Hemoglobin 28.2 pg (27.0-31.0); Mean Corpuscular Volume 88.7 fl (78.0-98.0); Mean Platelet Volume 8.3 fL (7.4-10.4); Platelet Count 47 10x3/uL (130-400); Potassium 4.5 mmol/L (3.5-5.1); Protein, Total 6.1 g/dL (6.0-8.3); RBC Distribution Width 13.9 % (11.5-14.5); Sodium 136 mmol/L (136-145); Troponin I Less than 0.010 ng/mL (< 0.028); White Blood Cell (WBC) Count 4.1 10x3/uL (4.8-10.8)
[2023-07-28] MEDS ORDERED: Nystatin Cream 15 GM TUBE TOP SCH (22:00)
== END 2023-07-28 23:05 | disposition home or self-care (01) ==
LOC: BURERS 20:50
DX: J45.901 Unspecified asthma with (acute) exacerbation (principal); E10.65 Type 1 diabetes mellitus with hyperglycemia; Z79.4 Long term (current) use of insulin; B37.9 Candidiasis, unspecified; I10 Essential (primary) hypertension; J44.9 Chronic obstructive pulmonary disease, unspecified
CPT/HCPCS: 36416; 71045; 80053; 84484; 85025; 93005; 96374; J1815; J1885; J7620

== ENCOUNTER 2023-08-09 15:25 | Emergency (ER) | payer OTHER ==
[2023-08-09] MEDS ORDERED: Ipratropium/Albuterol 3 ML NEB ONE (16:23)
[2023-08-09] MEDS ORDERED: Lidocaine 2% PF 100 mg/5 ml Syringe ONE (17:38)
[2023-08-09] MEDS ORDERED: Vancomycin 1 GM VIAL ONE (18:06)
[2023-08-09] MEDS ORDERED: LevoFLOXacin 750 mg/D5W 150 ml Premix Bag ONE (18:06)
[2023-08-09 18:10] LABS: Hematocrit 27.4 % (36.0-47.0); Hemoglobin 9.3 g/dL (12.0-16.0); Mean Corpuscular HGB CONC 33.9 g/dL (32.0-36.0); Mean Corpuscular Hemoglobin 29.9 pg (27.0-31.0); Mean Corpuscular Volume 88.4 fl (78.0-98.0); Mean Platelet Volume 8.8 fL (7.4-10.4); Platelet Count 73 10x3/uL (130-400); RBC Distribution Width 13.5 % (11.5-14.5)
[2023-08-09 18:15] LABS: ALT (SGPT) 18 U/L (8-55); AST (SGOT) 21 U/L (5-34); Alkaline Phosphatase 110 U/L (40-110); Anion Gap 21 mmol/L (10-20); BUN (Urea Nitrogen) 31 mg/dL (7.0-18.7); Bilirubin, Total 0.5 mg/dL (0.2-1.2); Calc. Creatinine Clearance 0 mL/min (70-130); Calcium 8.6 mg/dL (7.8-10.44); Carbon Dioxide 17 mmol/L (22-29); Chloride 100 mmol/L (98-107); Estimated GFR 21; Globulin 2.5 g/dL (2.4-3.5); Lipase 35 U/L (8-78); Protein, Total 5.5 g/dL (6.0-8.3); Sodium 131 mmol/L (136-145)
[2023-08-09] MEDS ORDERED: Morphine 2 MG/ML VIAL ONE (18:16)
[2023-08-09 18:18] LABS: Troponin I Less than 0.010 ng/mL (< 0.028)
[2023-08-09] MEDS ORDERED: LevoFLOXacin 500 mg/D5W 100 ML BAG ONE (18:18)
[2023-08-09 18:21] LABS: Glucose 616 mg/dL (70-105); Potassium 6.9 mmol/L (3.5-5.1)
[2023-08-09 18:30] LABS: Band 10 % (5-11); Eosinophils 9 % (0-10); Hypochromia SLIGHT = 6-15 cells (100X) (0-5/hpf); Lymphocytes 6 % (21-51); MDiff Complete? YES; Monocytes 4 % (0-10); Neutrophil 70 % (42-75); Nucleated RBC (Manual Ct) 5 % (0); Platelet Adequacy Comment Appears Decreased
[2023-08-09 19:00] LABS: Potassium 5.7 mmol/L (3.5-5.1)
[2023-08-09 19:11] LABS: Base Excess-Venous -4.4 mmol/L (-2.0 to 3.0); Bicarbonate (HCO3v) 20.8 mmol/L (22.0-28.0); CO2 Tension (PvCO2) 37.6 mmHg (42.0-51.0); Calcium, Ionized 1.12 mmol/L (1.15-1.33); Chloride 102 mmol/L (98-107); Hemoglobin - Calc 8.6 g/dL (12.0-16.0); Potassium 5.6 mmol/L (3.5-5.1); Sodium 130 mmol/L (138-145); T. Carbon Dioxide 21.9 mmol/L (22.0-28.0); vO2 Saturation-calc 99.4 % (60.0-85.0)
[2023-08-09] MEDS ORDERED: Insulin Regular 300 UNITS/3 ML VIAL ONE (19:25)
[2023-08-09 19:39] LABS: SARS-CoV-2 NAA Rapid Test Not Detected (NotDetected)
== END 2023-08-09 20:42 | disposition short-term general hospital (02) ==
LOC: BURERS 15:25
DX: J18.9 Pneumonia, unspecified organism (principal); N17.9 Acute kidney failure, unspecified; E86.0 Dehydration; E87.5 Hyperkalemia; I10 Essential (primary) hypertension; E10.9 Type 1 diabetes mellitus without complications; D64.9 Anemia, unspecified; J44.9 Chronic obstructive pulmonary disease, unspecified; Z20.822 Contact with and (suspected) exposure to COVID-19; Z79.4 Long term (current) use of insulin
CPT/HCPCS: 36415; 51702; 71045; 80053; 82330; 82803; 83605; 83690; 84484; 85025; 87086; 93005; 96372; 96374; 96375; J1815; J1956; J2001; J2272; J3370; J7620

== ENCOUNTER 2023-11-09 12:10 | Emergency (ER) | payer OTHER ==
[2023-11-09] MEDS ORDERED: Ipratropium/Albuterol 3 ML NEB ONE (12:27)
[2023-11-09] MEDS ORDERED: Dexamethasone 10 MG/ML VIAL ONE (13:01)
== END 2023-11-09 13:06 | disposition home or self-care (01) ==
LOC: BURERS 12:10
DX: R05.9 Cough, unspecified (principal); E10.9 Type 1 diabetes mellitus without complications; I10 Essential (primary) hypertension
CPT/HCPCS: 71046; 87804; J1100; J7620

== ENCOUNTER 2024-01-09 02:19 | Emergency (ER) | payer OTHER ==
[2024-01-09] MEDS ORDERED: Ondansetron PF 4 MG/2 ML Vial ONE (03:27)
[2024-01-09 03:53] LABS: ALT (SGPT) 16 U/L (8-55); AST (SGOT) 13 U/L (5-34); Albumin 3.3 g/dL (3.5-5.0); Alkaline Phosphatase 50 U/L (40-110); Anion Gap 16 mmol/L (10-20); BUN (Urea Nitrogen) 27 mg/dL (7.0-18.7); Bilirubin, Total 0.5 mg/dL (0.2-1.2); Calc. Creatinine Clearance 0 mL/min (70-130); Carbon Dioxide 16 mmol/L (22-29); Chloride 109 mmol/L (98-107); Estimated GFR 33; Globulin 1.8 g/dL (2.4-3.5); Glucose 319 mg/dL (70-105); Potassium 5.5 mmol/L (3.5-5.1); Protein, Total 5.1 g/dL (6.0-8.3); Sodium 135 mmol/L (136-145)
[2024-01-09 04:00] LABS: Hematocrit 30.1 % (36.0-47.0); Hemoglobin 9.7 g/dL (12.0-16.0); Mean Corpuscular HGB CONC 32.2 g/dL (32.0-36.0); Mean Corpuscular Hemoglobin 28.6 pg (27.0-31.0); Mean Corpuscular Volume 88.8 fl (78.0-98.0); Mean Platelet Volume 7.9 fL (7.4-10.4); Platelet Count 37 10x3/uL (130-400); RBC Distribution Width 13.3 % (11.5-14.5); Red Blood Cell (RBC) Count 3.39 mill/uL (4.20-5.40); White Blood Cell (WBC) Count 2.3 10x3/uL (4.8-10.8)
[2024-01-09 04:04] LABS: Calcium 8.1 mg/dL (7.8-10.44)
[2024-01-09] MEDS ORDERED: Ipratropium/Albuterol 3 ML NEB ONE (04:05)
[2024-01-09] MEDS ORDERED: Insulin Regular 300 UNITS/3 ML VIAL ONE (04:05)
[2024-01-09] MEDS ORDERED: CALCIUM GLUC 1 GM (50 ML) BAG ONE (04:06)
[2024-01-09 05:48] LABS: Band 5 % (5-11); Lymphocytes 29 % (21-51); Manual Diff?? YES; Neutrophil 62 % (42-75)
[2024-01-09 05:49] LABS: Monocytes 3 % (0-10); Platelet Adequacy Comment Appears Decreased
[2024-01-09 05:58] LABS: MDiff Complete? YES
[2024-01-09 06:29] LABS: Glucose 322 mg/dL (70-105); Potassium 5.1 mmol/L (3.5-5.1)
[2024-01-09] MEDS ORDERED: LevoFLOXacin D5W 500 mg (100 mL) BAG ONE (06:44)
[2024-01-09] MEDS ORDERED: Acetaminophen 325 MG TAB ONE (07:48)
== END 2024-01-09 08:35 | disposition short-term general hospital (02) ==
LOC: BURERS 02:19
DX: J11.1 Influenza due to unidentified influenza virus with other respiratory manifestations (principal); R09.02 Hypoxemia; R00.0 Tachycardia, unspecified; E10.9 Type 1 diabetes mellitus without complications; I10 Essential (primary) hypertension; J44.9 Chronic obstructive pulmonary disease, unspecified
CPT/HCPCS: 36415; 71046; 80053; 83605; 83880; 85025; 96365; 96367; 96375; J0613; J1815; J1956; J2405; J7620

== ENCOUNTER 2024-07-28 19:20 | Emergency (ER) | payer OTHER ==
[2024-07-28] MEDS ORDERED: Ondansetron PF 4 MG/2 ML Vial ONE (19:53)
[2024-07-28] MEDS ORDERED: Acetaminophen 500 MG TAB ONE (19:53)
[2024-07-28] MEDS ORDERED: Ipratropium/Albuterol 3 ML NEB ONE (19:53)
[2024-07-28 20:06] LABS: #Eosinphils 0.1 thou/uL (0.0-0.7); #Lymphocytes 0.6 thou/uL (1.20-3.40); #Monocytes 0.1 thou/uL (0.11-0.59); #Neutrophils 2.5 thou/uL (1.40-6.50); %Basophils 1.5 % (0.0-1.0); %Eosinophils 1.9 % (0.0-10.0); %Lymphocytes 17.2 % (21.0-51.0); %Monocytes 3.8 % (0.0-10.0); %Neutrophils 75.5 % (42.0-75.0); Hematocrit 25.2 % (36.0-47.0); Hemoglobin 8.4 g/dL (12.0-16.0); Mean Corpuscular HGB CONC 33.2 g/dL (32.0-36.0); Mean Corpuscular Hemoglobin 28.1 pg (27.0-31.0); Mean Corpuscular Volume 84.8 fl (78.0-98.0); Mean Platelet Volume 12.3 fL (7.4-10.4); Platelet Count 55 10x3/uL (130-400); RBC Distribution Width 16.6 % (11.5-14.5); Red Blood Cell (RBC) Count 2.98 mill/uL (4.20-5.40); White Blood Cell (WBC) Count 3.3 10x3/uL (4.8-10.8)
[2024-07-28 20:09] LABS: MDiff Complete? YES
[2024-07-28 20:19] LABS: ALT (SGPT) 12 U/L (8-55); AST (SGOT) 23 U/L (5-34); Albumin 3.3 g/dL (3.5-5.0); Alkaline Phosphatase 65 U/L (40-110); Anion Gap 17 mmol/L (10-20); BUN (Urea Nitrogen) 33 mg/dL (7.0-18.7); Bilirubin, Total 0.9 mg/dL (0.2-1.2); Calc. Creatinine Clearance 0 mL/min (70-130); Calcium 9.3 mg/dL (7.8-10.44); Carbon Dioxide 21 mmol/L (22-29); Chloride 110 mmol/L (98-107); Estimated GFR 42; Globulin 2.3 g/dL (2.4-3.5); Glucose 68 mg/dL (70-105); Potassium 5.6 mmol/L (3.5-5.1); Protein, Total 5.6 g/dL (6.0-8.3); Sodium 142 mmol/L (136-145); Troponin I 0.015 ng/mL (< 0.028)
[2024-07-28 20:31] LABS: Bilirubin Negative (Negative); Blood, Urine Moderate (Negative); Clarity Clear (Clear); Glucose, Urine (Dipstick) Negative (Negative); Ketone, Urine Negative (Negative); Leukocyte Negative (Negative); Nitrite Negative (Negative); Protein, Urine (Dipstick) > or equal to 300 mg/dL (Neg-Trace); Urobilinogen 0.2 mg/dL (Less than 2)
[2024-07-28 20:37] LABS: Bacteria/HPF 1+ HPF (None Seen); CAUTI Indications for Culture Alt mental st,lethar; Squamous Epithelial 0-3 HPF (0-3); WBC/HPF 0-3 HPF (0-3)
[2024-07-28 20:38] LABS: Urine Culture Reflex No No
[2024-07-28] MEDS ORDERED: Ketorolac Tromethamine 30 MG (1 mL) VIAL ONE (22:15)
[2024-07-28] MEDS ORDERED: Promethazine HCl 25 MG/ML VIAL ONE (22:15)
== END 2024-07-28 23:01 | disposition home or self-care (01) ==
LOC: BURERS 19:20
DX: D64.9 Anemia, unspecified (principal); E10.649 Type 1 diabetes mellitus with hypoglycemia without coma; D69.6 Thrombocytopenia, unspecified; I10 Essential (primary) hypertension; J44.9 Chronic obstructive pulmonary disease, unspecified; Z79.899 Other long term (current) drug therapy
CPT/HCPCS: 36416; 80053; 81001; 84484; 85025; 93005; 94760; 96361; 96374; 96375; J1885; J2405; J2550; J7620

== ENCOUNTER 2024-08-06 15:38 | Emergency (ER) | payer OTHER ==
[2024-08-06] MEDS ORDERED: Ketorolac Tromethamine 30 MG (1 mL) VIAL ONE (16:07)
[2024-08-06] MEDS ORDERED: Ondansetron PF 4 MG/2 ML Vial ONE (16:07)
[2024-08-06 16:19] LABS: #Lymphocytes 0.8 thou/uL (1.20-3.40); #Monocytes 0.3 thou/uL (0.11-0.59); #Neutrophils 1.5 thou/uL (1.40-6.50); %Basophils 1.3 % (0.0-1.0); %Eosinophils 0.6 % (0.0-10.0); %Lymphocytes 30.8 % (21.0-51.0); %Monocytes 9.9 % (0.0-10.0); %Neutrophils 57.3 % (42.0-75.0); Hematocrit 23.3 % (36.0-47.0); Hemoglobin 7.8 g/dL (12.0-16.0); Mean Corpuscular HGB CONC 33.6 g/dL (32.0-36.0); Mean Corpuscular Hemoglobin 29.2 pg (27.0-31.0); Mean Platelet Volume 7.9 fL (7.4-10.4); Platelet Count 47 10x3/uL (130-400); RBC Distribution Width 18.7 % (11.5-14.5); Red Blood Cell (RBC) Count 2.68 mill/uL (4.20-5.40); White Blood Cell (WBC) Count 2.7 10x3/uL (4.8-10.8)
[2024-08-06 16:32] LABS: Anion Gap 17 mmol/L (10-20); BUN (Urea Nitrogen) 32 mg/dL (7.0-18.7); Calc. Creatinine Clearance 0 mL/min (70-130); Calcium 8.8 mg/dL (7.8-10.44); Carbon Dioxide 17 mmol/L (22-29); Chloride 109 mmol/L (98-107); Estimated GFR 23; Glucose 227 mg/dL (70-105); Potassium 5.7 mmol/L (3.5-5.1); Sodium 137 mmol/L (136-145)
[2024-08-06 16:35] LABS: Troponin I Less than 0.010 ng/mL (< 0.028)
[2024-08-06 16:43] LABS: Hypochromia SLIGHT = 6-15 cells (100X) (0-5/hpf); MDiff Complete? YES; Platelet Adequacy Comment Appears Decreased
[2024-08-06 16:48] LABS: SARS-CoV-2 E Target Negative; SARS-CoV-2 N2 Target Negative; SARS-CoV-2 NAA Rapid Test Not Detected (NotDetected); SARS-CoV-2 RdRP gene Negative
== END 2024-08-06 23:00 | disposition short-term general hospital (02) ==
LOC: BURERS 15:38
DX: R55 Syncope and collapse (principal); N17.9 Acute kidney failure, unspecified; B34.9 Viral infection, unspecified; D61.818 Other pancytopenia; E11.9 Type 2 diabetes mellitus without complications; I10 Essential (primary) hypertension; J44.9 Chronic obstructive pulmonary disease, unspecified; Z79.4 Long term (current) use of insulin; Z79.899 Other long term (current) drug therapy
CPT/HCPCS: 36415; 36416; 71045; 80048; 84484; 85025; 93005; 96361; 96374; 96375; J1885; J2405; U0002

== ENCOUNTER 2024-08-23 13:15 | Emergency (ER) | payer OTHER ==
[2024-08-23] MEDS ORDERED: Ipratropium/Albuterol 3 ML NEB ONE (14:06)
[2024-08-23 14:08] LABS: #Lymphocytes 0.1 thou/uL (1.20-3.40); #Monocytes 0.1 thou/uL (0.11-0.59); #Neutrophils 7.1 thou/uL (1.40-6.50); %Lymphocytes 1.4 % (21.0-51.0); %Monocytes 1.6 % (0.0-10.0); Hematocrit 25.6 % (36.0-47.0); Hemoglobin 7.8 g/dL (12.0-16.0); Mean Corpuscular HGB CONC 30.5 g/dL (32.0-36.0); Mean Corpuscular Volume 95.2 fl (78.0-98.0); Mean Platelet Volume 9.1 fL (7.4-10.4); Platelet Count 39 10x3/uL (130-400); RBC Distribution Width 17.1 % (11.5-14.5); Red Blood Cell (RBC) Count 2.69 mill/uL (4.20-5.40); White Blood Cell (WBC) Count 7.3 10x3/uL (4.8-10.8)
[2024-08-23 14:15] LABS: Bilirubin Small (Negative); Blood, Urine Small (Negative); Glucose, Urine (Dipstick) 500 mg/dL (Negative); Ketone, Urine Negative (Negative); Leukocyte Negative (Negative); Nitrite Negative (Negative); Protein, Urine (Dipstick) > or equal to 300 mg/dL (Neg-Trace); Specific Gravity, Urine 1.025 (1.005-1.030); Urobilinogen 0.2 mg/dL (Less than 2); pH, Urine 5.5 (5.0-9.0)
[2024-08-23 14:16] LABS: Clarity Hazy (Clear)
[2024-08-23 14:18] LABS: Pregnancy Test - Urine (BHCG) Negative (Negative); Pregu Control Background? CLEAR/WHITE (CLR/WHITE); Pregu Control Bar Appear? YES (CONTROL BAR); Specific Gravity 1.025 (1.002-1.036)
[2024-08-23 14:24] LABS: Troponin I Less than 0.010 ng/mL (< 0.028)
[2024-08-23 14:27] LABS: ALT (SGPT) 15 U/L (8-55); AST (SGOT) 6 U/L (5-34); Albumin 2.1 g/dL (3.5-5.0); Alkaline Phosphatase 67 U/L (40-110); Anion Gap 20 mmol/L (10-20); BUN (Urea Nitrogen) 52 mg/dL (7.0-18.7); Bilirubin, Total 1.2 mg/dL (0.2-1.2); Calc. Creatinine Clearance 0 mL/min (70-130); Carbon Dioxide 15 mmol/L (22-29); Chloride 99 mmol/L (98-107); Estimated GFR 13; Glucose 632 mg/dL (70-105); Lipase 20 U/L (8-78); Potassium 5.2 mmol/L (3.5-5.1); Protein, Total 5.1 g/dL (6.0-8.3); Sodium 129 mmol/L (136-145)
[2024-08-23 14:31] LABS: Platelet Adequacy Comment Appears Decreased
[2024-08-23 14:41] LABS: Bacteria/HPF 1+ HPF (None Seen); CAUTI Indications for Culture Acute Hematuria; WBC/HPF 0-3 HPF (0-3)
[2024-08-23 14:43] LABS: Urine Culture Reflex No No
[2024-08-23 14:53] LABS: Base Excess-Venous -8.4 mmol/L (-2.0 to 3.0); Bicarbonate (HCO3v) 16.6 mmol/L (22.0-28.0); CO2 Tension (PvCO2) 31.1 mmHg (42.0-51.0); Calcium, Ionized 0.99 mmol/L (1.15-1.33); Chloride 98 mmol/L (98-107); Hemoglobin - Calc 7.2 g/dL (12.0-16.0); Potassium 5.6 mmol/L (3.5-5.1); Sodium 127 mmol/L (138-145); T. Carbon Dioxide 17.6 mmol/L (22.0-28.0); vO2 Saturation-calc 84.6 % (60.0-85.0)
[2024-08-23] MEDS ORDERED: INSULIN REGULAR IN 0.9 % NACL 100 ML ONE (15:27)
[2024-08-23] MEDS ORDERED: Insulin Regular 300 UNITS/3 ML VIAL ONE (15:28)
[2024-08-23] MEDS ORDERED: Azithromycin 500 MG VIAL ONE (15:53)
[2024-08-23] MEDS ORDERED: Sodium Chloride 0.9% 100 ML ONE (15:53)
== END 2024-08-23 16:14 | disposition short-term general hospital (02) ==
LOC: BURERS 13:15
DX: E11.10 Type 2 diabetes mellitus with ketoacidosis without coma (principal); N17.9 Acute kidney failure, unspecified; I12.9 Hypertensive chronic kidney disease with stage 1 through stage 4 chronic kidney disease, or unspecified chronic kidney disease; E11.22 Type 2 diabetes mellitus with diabetic chronic kidney disease; N18.9 Chronic kidney disease, unspecified; J18.1 Lobar pneumonia, unspecified organism; J44.9 Chronic obstructive pulmonary disease, unspecified
CPT/HCPCS: 36415; 36416; 71046; 80053; 81001; 81025; 82010; 82330; 82803; 83605; 83690; 84484; 85025; 87040; 87077; 87149; 87804; 87811; 93005; 94640; 96365; 96375; J0456; J1815; J7620

== ENCOUNTER 2024-11-07 09:57 | Emergency (ER) | payer OTHER | END 2024-11-07 10:13 | disposition left against medical advice (07) | LOC: BURERS 09:57 | DX: Z53.21 Procedure and treatment not carried out due to patient leaving prior to being seen by health care provider (principal) ==

== ENCOUNTER 2025-07-08 17:46 | Emergency (ER) | payer MEDICAID ==
[2025-07-08] MEDS ORDERED: Orphenadrine Citrate 60 MG/2 ML VIAL ONE (19:09)
[2025-07-08] MEDS ORDERED: dilTIAZem 25 MG/5 ML VIAL ONE (19:09)
[2025-07-08 19:34] LABS: Glucose, Urine (Dipstick) 250 mg/dL (Negative); Leukocyte Small (Negative); Protein, Urine (Dipstick) > or equal to 300 mg/dL (Neg-Trace); Specific Gravity, Urine 1.020 (1.005-1.030)
[2025-07-08 19:42] LABS: ALT (SGPT) Less than 7 U/L (Less than 34); AST (SGOT) 20 U/L (11-34); Albumin 2.9 g/dL (3.1-4.5); Alkaline Phosphatase 81 U/L (40-110); Anion Gap 14 mmol/L (10-20); BUN (Urea Nitrogen) 7 mg/dL (7.0-18.7); Bilirubin, Total 0.9 mg/dL (0.3-1.2); Calc. Creatinine Clearance 0 mL/min (70-130); Calcium 8.4 mg/dL (7.8-10.44); Carbon Dioxide 24 mmol/L (22-29); Chloride 104 mmol/L (98-107); Globulin 2.7 g/dL (2.4-3.5); Glucose 167 mg/dL (70-105); Magnesium 1.7 mg/dL (1.6-2.6); Potassium 3.2 mmol/L (3.5-5.1); Sodium 139 mmol/L (136-145)
[2025-07-08] MEDS ORDERED: Nitroglycerin 0.4 MG TAB 1 EACH ONE ×2 (20:01→20:31)
[2025-07-08 20:03] LABS: Hematocrit 25.7 % (36.0-47.0); Hemoglobin 9.1 g/dL (12.0-16.0); Mean Corpuscular Hemoglobin 31.1 pg (27.0-31.0); Mean Corpuscular Volume 88.0 fl (78.0-98.0); Platelet Count 42 10x3/uL (130-400); Red Blood Cell (RBC) Count 2.92 mill/uL (4.20-5.40); White Blood Cell (WBC) Count 2.2 10x3/uL (4.8-10.8)
[2025-07-08 20:05] LABS: Bacteria/HPF Rare-Few HPF (None Seen); CAUTI Indications for Culture Pelvic or flank pain; WBC/HPF 21-50 HPF (0-3)
[2025-07-08 20:06] LABS: Urine Culture Reflex Yes Yes
[2025-07-08] MEDS ORDERED: Oseltamivir 75 MG CAP ONE (20:31)
== END 2025-07-09 01:19 | disposition short-term general hospital (02) ==
LOC: BURERS 17:46
DX: I12.0 Hypertensive chronic kidney disease with stage 5 chronic kidney disease or end stage renal disease (principal); N18.6 End stage renal disease; E11.22 Type 2 diabetes mellitus with diabetic chronic kidney disease; J01.90 Acute sinusitis, unspecified; J44.1 Chronic obstructive pulmonary disease with (acute) exacerbation; E87.6 Hypokalemia; J11.1 Influenza due to unidentified influenza virus with other respiratory manifestations; D61.818 Other pancytopenia; N39.0 Urinary tract infection, site not specified; Z79.2 Long term (current) use of antibiotics; Z79.51 Long term (current) use of inhaled steroids; Z99.2 Dependence on renal dialysis
CPT/HCPCS: 36415; 36416; 70450; 71045; 71250; 74176; 80053; 81001; 83605; 83735; 83880; 85025; 87040; 87081; 87086; 87149; 87428; 87430; 96374; 96375; 96376; J2360; J2919; J7620

== ENCOUNTER 2025-08-22 18:36 | Emergency (ER) | payer MEDICAID, OTHER ==
[2025-08-22 18:59] LABS: Glucose, Urine (Dipstick) Negative (Negative); Leukocyte Small (Negative); Protein, Urine (Dipstick) > or equal to 300 mg/dL (Neg-Trace); Specific Gravity, Urine 1.015 (1.005-1.030)
[2025-08-22 19:05] LABS: CAUTI Indications for Culture Dysuria,urgency,freq; RBC/HPF 21-50 HPF (0-3); WBC/HPF 21-50 HPF (0-3)
[2025-08-22 19:06] LABS: Bacteria/HPF 4+ HPF (None Seen)
[2025-08-22 19:07] LABS: Urine Culture Reflex Yes Yes
[2025-08-22] MEDS ORDERED: Acetaminophen 325 MG TAB ONE (19:18)
== END 2025-08-22 19:35 | disposition home or self-care (01) ==
LOC: BURERS 18:36
DX: N39.0 Urinary tract infection, site not specified (principal); I12.0 Hypertensive chronic kidney disease with stage 5 chronic kidney disease or end stage renal disease; E11.22 Type 2 diabetes mellitus with diabetic chronic kidney disease; N18.6 End stage renal disease; Z79.4 Long term (current) use of insulin; Z79.899 Other long term (current) drug therapy
CPT/HCPCS: 81001; 87086; 99283

== ENCOUNTER 2025-09-05 19:48 | Emergency (ER) | payer MEDICAID ==
[2025-09-05] MEDS ORDERED: Ondansetron PF 4 MG/2 ML Vial ONE (21:19)
[2025-09-05 21:27] LABS: Hematocrit 19.3 % (36.0-47.0); Hemoglobin 6.7 g/dL (12.0-16.0); MDiff Complete? YES; Mean Corpuscular Hemoglobin 30.6 pg (27.0-31.0); Mean Corpuscular Volume 88.4 fl (78.0-98.0); Platelet Adequacy Comment Appears Decreased; Platelet Count 35 10x3/uL (130-400); Red Blood Cell (RBC) Count 2.19 mill/uL (4.20-5.40); White Blood Cell (WBC) Count 5.4 10x3/uL (4.8-10.8)
[2025-09-05 21:28] LABS: ALT (SGPT) Less than 7 U/L (Less than 34); AST (SGOT) 11 U/L (11-34); Albumin 2.5 g/dL (3.1-4.5); Alkaline Phosphatase 48 U/L (40-110); Anion Gap 15 mmol/L (10-20); BUN (Urea Nitrogen) 12 mg/dL (7.0-18.7); Bilirubin, Total 0.7 mg/dL (0.3-1.2); Calc. Creatinine Clearance 0 mL/min (70-130); Calcium 7.9 mg/dL (7.8-10.44); Carbon Dioxide 24 mmol/L (22-29); Chloride 99 mmol/L (98-107); Globulin 2.7 g/dL (2.4-3.5); Glucose 163 mg/dL (70-105); Potassium 3.3 mmol/L (3.5-5.1); Sodium 135 mmol/L (136-145)
[2025-09-05 21:50] LABS: Troponin I Less than 0.010 ng/mL (< 0.028)
== END 2025-09-05 23:33 | disposition home or self-care (01) ==
LOC: BURERS 19:48
DX: L02.212 Cutaneous abscess of back [any part, except buttock and flank] (principal); D64.9 Anemia, unspecified; D69.6 Thrombocytopenia, unspecified; I12.0 Hypertensive chronic kidney disease with stage 5 chronic kidney disease or end stage renal disease; E11.22 Type 2 diabetes mellitus with diabetic chronic kidney disease; N18.6 End stage renal disease; Z79.899 Other long term (current) drug therapy; Z99.2 Dependence on renal dialysis
CPT/HCPCS: 36415; 80053; 83605; 83880; 84484; 85025; 87040; 93005; J3010; J3490